=== PATIENT | male | born 1940 | race Caucasian/White ===

== ENCOUNTER 2023-01-18 11:29 | Inpatient (IN) | payer MEDICARE ==
[2023-01-18] MEDS ORDERED: SODIUM CHLORIDE 0.9% 1,000 ML IV STA (12:26)
[2023-01-18] MEDS ORDERED: SODIUM CHLORIDE 0.9% 500 ML 500 ML IV STA (12:26)
[2023-01-18] MEDS ORDERED: ACETAMINOPHEN TAB 500 MG TAB PO STA (12:26)
--- NOTE | 2023-01-18 12:34 | ED ---
General Adult HPI - General Chief complaint: Weakness Stated complaint: Weakness, Confusion Time Seen by Provider: 01/18/23 12:00 Source: patient, RN notes reviewed, old records reviewed Mode of arrival: ambulatory Limitations: no limitations - History of Present Illness Initial comments: This is an 82-year-old male presents emergency Department with his . gives all of the history. states over the last week or so he's been more confused and falling a couple times. states she's never been injured in any of the falls. states that today he didn't know where he was going even though she told him about [address] to [address] hospital. Once patient was in the room he couldn't remember where he was again. Patient has a catheter in place for urinary retention for the last 2 years acute change every 2 weeks. states she's noticed the color to be a little different. There is been no objective findings of a fever. Patient has not had any physical complaints but he also does not know or is not aware that he is altered primary medical care doctor wanted the patient be admitted to the hospital - Related Data Home Medications Medication Instructions Recorded Confirmed No Known Home Medications 01/18/23 01/18/23 Allergies Allergy/AdvReac Type Severity Reaction Status Date / Time No Known Allergies Allergy Verified 01/18/23 13:13 Review of Systems ROS Statement: Those systems with pertinent positive or pertinent negative responses have been documented in the HPI. ROS Other: All systems not noted in ROS Statement are negative. 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 Patient is nontoxic and well- hydrated and is in mild distress. ENT: Neck is soft and supple. No significant lymphadenopathy is noted. Oropharynx is clear. Moist mucous membranes. Neck has full range of motion without eliciting any pain. EYES: The sclera were anicteric and conjunctiva were pink and moist. Extraocular movements were intact and pupils were equal round and reactive to light. Eyelids were unremarkable. PULMONARY: Unlabored respirations. Good breath sounds bilaterally. No audible rales rhonchi or wheezing was noted. CARDIOVASCULAR: There is a regular rate and rhythm without any murmurs gallops or rubs. ABDOMEN: Soft and nontender with normal bowel sounds. SKIN: Skin is clear with no lesions or rashes and otherwise unremarkable. NEUROLOGIC: Patient is alert and oriented 2. Cranial nerves II through XII are grossly intact. Motor and sensory are also intact. Normal speech, volume and content. Symmetrical smile. MUSCULOSKELETAL: Normal extremities with adequate strength and full range of motion. LYMPHATICS: No significant lymphadenopathy is noted PSYCHIATRIC: Normal psychiatric evaluation. Limitations: no limitations Course Vital Signs 01/18/23 11:33 Temperature 98.6 F Pulse Rate 75 Respiratory 20 Rate Blood Pressure 186/88 O2 Sat by Pulse 100 Oximetry Medical Decision Making - Medical Decision Making EKG shows sinus rhythm at 64 bpm NE interval 143 QRS is 95 Q-T intervals 416 QTC is 426. Patient's EKG is of poor quality in leads 1 and 2 however there is no other leads denies any ST segment elevation Was pt. sent in by a medical professional or institution (, PA, SECURITY SHIFT SUPERVISOR, urgent care, hospital, or long term...) When possible be specific @ -Primary medical care doctor sent the patient to the ER Did you speak to anyone other than the patient for history (EMS, parent, family, police, friend...)? What history was obtained from this source @ -History significant completely by the Did you review nursing and triage notes (agree or disagree)? Why? @ -I reviewed and agree with nursing and triage notes Were old charts reviewed (outside hosp., previous admission, EMS record, old EKG, old radiological studies, urgent care reports/EKG's, long term records)? Report findings @ -I reviewed prior lab work and charts. Differential Diagnosis (chest pain, altered mental status, abdominal pain women, abdominal pain men, vaginal bleeding, weakness, fever, dyspnea, syncope, headache, dizziness, GI bleed, back pain, seizure, CVA, palpatations, mental health, musculoskeletal)? @ -Differential Altered Mental Status: Hypoglycemia, DKA, hypercapnia, ETOH, overdose, CO poisoning, trauma, myxedema coma, HTN encephalopathy, infection, encephalitis, psychosis, intercranial hemorrhage, hepatic encephalopathy, meningitis, CVA, this is not meant to be an all-inclusive list EKG interpreted by me (3pts min.). @ -As above X-rays interpreted by me (1pt min.). @ -Chest x-ray was interpreted by myself is in no acute normalities CT interpreted by me (1pt min.). @ -None done U/S interpreted by me (1pt. min.). @ -None done What testing was considered but not performed or refused? (CT, X-rays, U/S, labs)? Why? @ -None What meds were considered but not given or refused? Why? @ -None Did you discuss the management of the patient with other professionals (pro fessionals i.e. , PA, SECURITY SHIFT SUPERVISOR, lab, RT, psych nurse, social media campaign manager, reinforcing iron and rebar workers, teacher, benefits officer, case finisher)? Give summary @ -I spoke with [facility] they agreed to admit the patient admitted the patient wrote admitting orders Was smoking cessation discussed for >3mins.? @ -No Was critical care preformed (if so, how long)? @ -No Were there social determinants of health that impacted care today? How? (Homelessness, low income, unemployed, alcoholism, drug addiction, [employer], low edu. Level, literacy, decrease access to med. care, group home, rehab)? @ -No Was there de-escalation of care discussed even if they declined (Discuss DNR or withdrawal of care, Hospice)? DNR status @ -No What co-morbidities impacted this encounter? (DM, HTN, Smoking, COPD, CAD, Cancer, CVA, ARF, Chemo, Hep., AIDS, mental health diagnosis, sleep apnea, morbid obesity)? @ -Indwelling catheter Was patient admitted / discharged? Hospital course, mention meds given and route, prescriptions, significant lab abnormalities, going to OR and other pertinent info. @ -Patient continued to be altered throughout his stay. Patient was given 2 g Rocephin. did not think that the patient will be safe going home because he fell a couple of times and was completely confused at times. I spoke with [facility] he agreed to admit the patient admitted the patient wrote admitting orders I continued antibiotics on the floor. Undiagnosed new problem with uncertain prognosis? @ -No Drug Therapy requiring intensive monitoring for toxicity (Heparin, Nitro, Insulin, Cardizem)? @ -No Were any procedures done? @ -No Diagnosis/symptom? @ -Altered mental status Acute, or Chronic, or Acute on Chronic? @ -Acute Uncomplicated (without systemic symptoms) or Complicated (systemic symptoms)? @ -Complicated Side effects of treatment? @ -No Exacerbation, Progression, or Severe Exacerbation? @ -No Poses a threat to life or bodily function? How? (Chest pain, USA, IA, pneumonia, PE, COPD, DKA, ARF, appy, cholecystitis, CVA, Diverticulitis, Homicidal, Suicidal, threat to staff... and all critical care pts) @ -No Diagnosis/symptom? @ -Urinary tract infection Acute, or Chronic, or Acute on Chronic? @ -Acute Uncomplicated (without systemic symptoms) or Complicated (systemic symptoms)? @ -Complicated Side effects of treatment? @ -none Exacerbation, Progression, or Severe Exacerbation] @ -no Poses a threat to life or bodily function? @ -Yes this could lead to sepsis and and/or dysfunction - Lab Data Result diagrams: 01/18/23 13:01 01/18/23 13:01 Lab Results 01/18/23 01/18/23 01/18/23 Range/Units 13:01 13:01 13:01 WBC 15.4 H (3.8-10.6) k/uL RBC 4.60 (4.30-5.90) m/uL Hgb 14.7 (13.0-17.5) gm/dL Hct 44.4 (39.0-53.0) % MCV 96.5 (80.0-100.0) fL MCH 32.0 (25.0-35.0) pg MCHC 33.1 (31.0-37.0) g/dL RDW 13.0 (11.5-15.5) % Plt Count 273 (150-450) k/uL MPV 8.6 Neutrophils % 89 % Lymphocytes % 4 % Monocytes % 5 % Eosinophils % 1 % Basophils % 0 % Neutrophils # 13.7 H (1.3-7.7) k/uL Lymphocytes # 0.7 L (1.0-4.8) k/uL Monocytes # 0.7 (0-1.0) k/uL Eosinophils # 0.1 (0-0.7) k/uL Basophils # 0.0 (0-0.2) k/uL PT 10.3 (9.0-12.0) sec INR 1.0 (<1.2) APTT 23.5 (22.0-30.0) sec Sodium 136 L (137-145) mmol/L Potassium 4.0 (3.5-5.1) mmol/L Chloride 98 (98-107) mmol/L Carbon Dioxide 29 (22-30) mmol/L Anion Gap 9 mmol/L BUN 14 (9-20) mg/dL Creatinine 1.07 (0.66-1.25) mg/dL Est GFR (CKD-EPI)AfAm 76 (>60 ml/min/1.73 sqM) Est GFR (CKD-EPI)NonAf 66 (>60 ml/min/1.73 sqM) Glucose 94 (74-99) mg/dL Plasma Lactic Acid Angel (0.7-2.0) mmol/L Calcium 9.4 (8.4-10.2) mg/dL Magnesium 2.0 (1.6-2.3) mg/dL Total Bilirubin 0.6 (0.2-1.3) mg/dL AST 28 (17-59) U/L ALT 19 (4-49) U/L Alkaline Phosphatase 64 (38-126) U/L Troponin I (0.000-0.034) ng/mL Total Protein 7.5 (6.3-8.2) g/dL Albumin 4.4 (3.5-5.0) g/dL Urine Color Urine Appearance (Clear) Urine pH (5.0-8.0) Ur Specific Sidney (1.001-1.035) Urine Protein (Negative) Urine Glucose (UA) (Negative) Urine Ketones (Negative) Urine Blood (Negative) Urine Nitrite (Negative) Urine Bilirubin (Negative) Urine Urobilinogen (<2.0) mg/dL Ur Leukocyte Esterase (Negative) Urine RBC (0-5) /hpf Urine WBC (0-5) /hpf Urine Bacteria (None) /hpf 01/18/23 01/18/23 01/18/23 Range/Units 13:01 13:01 13:41 WBC (3.8-10.6) k/uL RBC (4.30-5.90) m/uL Hgb (13.0-17.5) gm/dL Hct (39.0-53.0) % MCV (80.0-100.0) fL MCH (25.0-35.0) pg MCHC (31.0-37.0) g/dL RDW (11.5-15.5) % Plt Count (150-450) k/uL MPV Neutrophils % % Lymphocytes % % Monocytes % % Eosinophils % % Basophils % % Neutrophils # (1.3-7.7) k/uL Lymphocytes # (1.0-4.8) k/uL Monocytes # (0-1.0) k/uL Eosinophils # (0-0.7) k/uL Basophils # (0-0.2) k/uL PT (9.0-12.0) sec INR (<1.2) APTT (22.0-30.0) sec Sodium (137-145) mmol/L Potassium (3.5-5.1) mmol/L Chloride (98-107) mmol/L Carbon Dioxide (22-30) mmol/L Anion Gap mmol/L BUN (9-20) mg/dL Creatinine (0.66-1.25) mg/dL Est GFR (CKD-EPI)AfAm (>60 ml/min/1.73 sqM) Est GFR (CKD-EPI)NonAf (>60 ml/min/1.73 sqM) Glucose (74-99) mg/dL Plasma Lactic Acid Angel 1.2 (0.7-2.0) mmol/L Calcium (8.4-10.2) mg/dL Magnesium (1.6-2.3) mg/dL Total Bilirubin (0.2-1.3) mg/dL AST (17-59) U/L ALT (4-49) U/L Alkaline Phosphatase (38-126) U/L Troponin I <0.012 (0.000-0.034) ng/mL Total Protein (6.3-8.2) g/dL Albumin (3.5-5.0) g/dL Urine Color Colorless Urine Appearance Clear (Clear) Urine pH 6.5 (5.0-8.0) Ur Specific Sidney 1.004 (1.001-1.035) Urine Protein Negative (Negative) Urine Glucose (UA) Negative (Negative) Urine Ketones Negative (Negative) Urine Blood Negative (Negative) Urine Nitrite Positive (Negative) Urine Bilirubin Negative (Negative) Urine Urobilinogen <2.0 (<2.0) mg/dL Ur Leukocyte Esterase Moderate H (Negative) Urine RBC 1 (0-5) /hpf Urine WBC 9 H (0-5) /hpf Urine Bacteria Occasional H (None) /hpf Disposition Clinical Impression: Altered mental status, Urinary tract infection Disposition: ADMITTED IP TO THIS HOSP Is patient prescribed a controlled substance at d/c from ED?: No Referrals: Kade Moyer MD [Primary Care Provider] - 1-2 days Time of Disposition: 14:15
[2023-01-18 13:13] LABS: Basophils % (A) 0 %; Eosinophils # (A) 0.1 k/uL (0-0.7); Eosinophils % (A) 1 %; HCT 44.4 % (39.0-53.0); HGB 14.7 gm/dL (13.0-17.5); Lymphocytes # (A) 0.7 k/uL (1.0-4.8); Lymphocytes % (A) 4 %; MCHC 33.1 g/dL (31.0-37.0); MCV 96.5 fL (80.0-100.0); Mean Platelet Volume 8.6; Monocytes # (A) 0.7 k/uL (0-1.0); Monocytes % (A) 5 %; Neutrophils # (A) 13.7 k/uL (1.3-7.7); Neutrophils % (A) 89 %; Platelet Count 273 k/uL (150-450); WBC 15.4 k/uL (3.8-10.6)
[2023-01-18 13:26] LABS: Albumin 4.4 g/dL (3.5-5.0); Calcium 9.4 mg/dL (8.4-10.2); Total Bilirubin 0.6 mg/dL (0.2-1.3); Total Protein 7.5 g/dL (6.3-8.2)
[2023-01-18 13:29] LABS: Partial Thromboplastin Time 23.5 sec (22.0-30.0); Prothrombin Time 10.3 sec (9.0-12.0)
[2023-01-18 14:07] LABS: Appearance,Urine Clear (Clear); Bacteria,Urine Occasional /hpf; Bilirubin,Urine Negative (Negative); Blood,Urine Negative (Negative); Color,Urine Colorless; Glucose,Urine (UA) Negative (Negative); Ketones,Urine Negative (Negative); Leukocyte Esterase,Urine Moderate (Negative); Nitrite,Urine Positive (Negative); PH, Urine 6.5 (5.0-8.0); Protein,Urine Negative (Negative); RBC,Urine 1 /hpf (0-5); Specific Gravity,Urine 1.004 (1.001-1.035); Urobilinogen,Urine <2.0 mg/dL (<2.0); WBC,Urine 9 /hpf (0-5)
[2023-01-18] MEDS ORDERED: cefTRIAXone IN SWFI 1,000 MG/10 ML SYRINGE IVP STA (14:14)
[2023-01-18] MEDS ORDERED: SODIUM CHLORIDE 0.9% 1,000 ML IV ONE (14:25)
--- NOTE | 2023-01-18 14:45 | XR ---
EXAMINATION TYPE: XR chest 2V DATE OF EXAM: 01/18/2023 COMPARISON: NONE HISTORY: Weakness and confusion. TECHNIQUE: Frontal and lateral views of the chest are obtained. FINDINGS: Cardiomegaly is present. Some increased interstitial markings. No suspicious focal airspac e opacity, pleural effusion, or pneumothorax. Overlying EKG leads. The osseous structures are demine ralized. IMPRESSION: Cardiomegaly with perhaps mild interstitial edema or mild chronic parenchymal fibrotic c hange. Correlate clinically. No suspicious acute focal infiltrate.
[2023-01-18] MEDS ORDERED: ACETAMINOPHEN TAB 325 MG TAB PO PRN (15:09)
--- NOTE | 2023-01-18 15:15 | P.HPIM ---
History of Present Illness H&P Date: 01/18/23 Patient is a 82-year-old male with history of chronic indwelling Bal catheter presenting with altered mentation. Patient is a poor historian. is at bedside. She claims that he has had previous urinary tract infections where he becomes encephalopathic. This time, he started to become encephalopathic yesterday. called PCP office, and was given script for bactrim. He took 2 doses of Bactrim, but his mental status has continued to worsen. She called PCP in this morning, was advised to come to the ED. She denies any recorded fevers. Patient himself denies any pain, shortness of breath, nausea, vomiting, diarrhea, constipation. He has chronic indwelling Bal catheter for the last 2 years. He has history of poliomyelitis. He normally ambulates using a walker. For the last day or so he has been feeling weak, and had 2 mechanical falls. denies noticing any head trauma. In the ED, patient was afebrile, blood pressure 186/88, saturating at 100%, at room air, pulse 75, respiratory rate 20. CBC showed WBC 15.4, sodium 136, creatinine 1.07, troponin less than 0.012, UA positive for nitrites, moderate leukocyte esterase he was given ceftriaxone in the ED, and 1.5 L of normal saline. EKG showed sinus rhythm with nonspecific ST T wave changes. Chest x- ray showed no significant opacity. Patient admitted for acute metabolic encephalopathy likely in the setting of urinary tract infection and sepsis. Pertinent positives and negatives as discussed in HPI, a complete review of systems was performed and all other systems are negative. Patient seen and examined at bedside. Vital signs reviewed General: nontoxic, no distress, appears at stated age Derm: warm, dry Head: atraumatic, normocephalic, symmetric Eyes: EOMI, no lid lag, anicteric sclera, pupils equal round reactive to light ENT: Nose and ears atraumatic Neck: No thyromegaly, supple Mouth: no lip lesion, mucus membranes moist Cardiovascular: S1S2 reg, no murmur, no edema Lungs: clear to auscultation bilateral, no rhonchi, no rales, no wheeze, no accessory muscle use Abdominal: soft, nontender to palpation, no guarding, no appreciable organomegaly Ext: no gross muscle atrophy, muscle strength muscle strength 5 out of 5 in all 4 extremities, no contractures Neuro: CN II-XII grossly intact Psych: Alert, oriented 1, appropriate affect Assessment/Plan: Active: Sepsis secondary to urinary tract infection Chronic indwelling Bal catheter, secondary to history of poliomyelitis Generalized weakness Acute metabolic encephalopathy Hypertensive urgency Mild hyponatremia, hypovolemic -Continue Rocephin 2 g every 24 hours -Blood cultures, urine cultures pending -Bal catheter exchanged in the ED -Continue normal saline at 75 mL an hour -Acute metabolic encephalopathy likely secondary to sepsis and urinary tract infection -CT head ordered -TSH, B12 ordered -PT/OT -We will hold off adding any antihypertensives at the moment given sepsis -Hyponatremia likely hypovolemic, should improve with IV fluids given earlier, repeat BMP tomorrow The patient is admitted with an anticipated less than 2 midnight stay as observation status for evaluation of sepsis. Surrogate decision-maker: CODE STATUS: DO NOT RESUSCITATE/DO NOT INTUBATE DVT prophylaxis: Subcu heparin Anticipated discharge date: Pending clinical course Anticipated discharge place: Pending clinical course A total of 55 minutes was spent on the care of this complex patient more than 50% of the time was spent in counseling and care coordination. 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 History of Any Multi-Drug Resistant Organisms: None Reported Past Surgical History: No Surgical Hx Reported Past Psychological History: No Psychological Hx Reported Smoking Status: Never smoker Past Alcohol Use History: None Reported Past Drug Use History: None Reported Medications and Allergies Home Medications Medication Instructions Recorded Confirmed Type No Known Home Medications 01/18/23 01/18/23 History Allergies Allergy/AdvReac Type Severity Reaction Status Date / Time No Known Allergies Allergy Verified 01/18/23 13:13 Physical Exam Vitals: Vital Signs Temp Pulse Resp BP Pulse Ox 01/18/23 14:00 65 11 L 183/96 01/18/23 13:21 18 01/18/23 11:33 98.6 F 75 20 186/88 100 Intake and Output 01/18/23 01/18/23 01/18/23 06:59 14:59 22:59 Other: Weight 68.946 kg Results CBC & Chem 7: 01/18/23 13:01 01/18/23 13:01 Labs: Abnormal Lab Results - Last 24 Hours (Table) 01/18/23 01/18/23 01/18/23 Range/Units 13:01 13:01 13:41 WBC 15.4 H (3.8-10.6) k/uL Neutrophils # 13.7 H (1.3-7.7) k/uL Lymphocytes # 0.7 L (1.0-4.8) k/uL Sodium 136 L (137-145) mmol/L Ur Leukocyte Esterase Moderate H (Negative) Urine WBC 9 H (0-5) /hpf Urine Bacteria Occasional H (None) /hpf
[2023-01-18] MEDS: HEPARIN SODIUM,PORCINE/PF 5,000 UNIT/0.5 ML SYRINGE SQ SCH (16:13)
--- NOTE | 2023-01-18 17:25 | CT ---
EXAMINATION TYPE: CT brain wo con DATE OF EXAM: 01/18/2023 COMPARISON: None HISTORY: Altered mental status. CT DLP: 1243.4 mGycm Automated exposure control for dose reduction was used. Images obtained of the brain without contrast. There is cerebral atrophy. There is no mass effect or midline shift. No sign of intracranial hemorrha ge. There is hypodensity in the knapp and white matter left occipital lobe that measures 4 cm. The dieter varium is intact. Sella turcica appears intact there is some mucosal thickening left maxillary sinus. There is normal aeration of the mastoid sinuses. 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 No hemorrhage. Cere bral atrophy.
[2023-01-19] MEDS: HEPARIN SODIUM,PORCINE/PF 5,000 UNIT/0.5 ML SYRINGE SQ SCH ×3 (00:57→16:54)
[2023-01-19 09:48] LABS: Basophils # (A) 0.07 X 10*3/uL (0.00-0.10); Basophils % (A) 0.7 %; Eosinophils # (A) 0.15 X 10*3/uL (0.04-0.35); Eosinophils % (A) 1.5 %; HCT 39.2 % (39.6-50.0); Immature Grans, Automated 0.4 %; Lymphocytes # (A) 1.27 X 10*3/uL (0.90-5.00); Lymphocytes % (A) 12.4 %; MCH 31.9 pg (27.0-32.0); MCHC 33.2 g/dL (32.0-37.0); MCV 96.3 fL (80.0-97.0); Mean Platelet Volume 11.4 fL (9.5-12.2); Monocytes # (A) 1.05 X 10*3/uL (0.20-1.00); Monocytes % (A) 10.2 %; NRBC Per 100 WBC 0 /100 WBCS (0.0-0.0); Neutrophils # (A) 7.69 X 10*3/uL (1.80-7.70); Neutrophils % (A) 74.8 %; Platelet Count 242 X 10*3/uL (140-440); RBC 4.07 X 10*6/uL (4.40-5.60); RDW 13.6 % (11.5-14.5); WBC 10.27 X 10*3/uL (4.50-10.00)
[2023-01-19 10:27] LABS: Anion Gap 7.7 mmol/L (10.00-18.00); BUN/Creat Ratio 9.14 Ratio (12.00-20.00); Blood Urea Nitrogen 9.2 mg/dL (9.0-27.0); Calcium 8.6 mg/dL (8.7-10.3); Carbon Dioxide 23.9 mmol/L (20.0-27.5); Non-African American GFR(CKD) 69.9 (60.0-200.0); Potassium 3.9 mmol/L (3.5-5.5)
--- NOTE | 2023-01-19 15:49 | P.PN ---
Subjective Progress Note Date: 01/19/23 Patient is an 82-year-old male with 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 Patient had been started on Bactrim for possible urinary tract infection by his primary care practitioner the day prior to admission. In the ER he underwent an extensive evaluation. He was afebrile on admission. La boratory analysis was remarkable for white blood cell count of 15.4, sodium 136. Urinalysis showed 9 white blood cells. Patient was admitted for acute metabolic encephalopathy likely in the setting of urinary tract infection and sepsis. He was started on Rocephin and IV fluids. His Bal catheter was exchanged in the emergency department. Influenza A/B/RC/COVID-19 testing was negative. 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 Patient seen and examined at bedside. He is pleasantly confused. Speech is coherent but does not answer questions directly. He believes it is 1948, and he is unsure where he is at. updated at bedside. Plan is to continue with IV antibiotics and if no improvement in mentation in the next 24 hours we'll proceed with MRI brain as computed tomography scan was negative Vital signs reviewed General: nontoxic, no distress, appears at stated age Cardiovascular: S1S2 reg, no murmur, positive posterior tibial pulse bilateral, Lungs: CTA bilateral, no rhonchi, no rales , no accessory muscle use Abdominal: soft, nontender to palpation, no guarding, no appreciable organomegaly Ext: no gross muscle atrophy, no edema, no contractures Neuro: CN II-XI grossly intact, no focal neuro deficits Psych: Alert, oriented, appropriate affect Assessment: Sepsis secondary to urinary tract infection, POA Chronic indwelling Bal catheter, secondary to history of poliomyelitis Generalized weakness Acute metabolic encephalopathy Hypertensive urgency Mild hyponatremia, hypovolemic, resolved Imaging: - non new for review Data Review: A.m. vital signs reviewed temperature 97.2, pulse 63, respirations 18, blood pressure 146/81, O2 sat 98% on room air Laboratory analysis was remarkable for white blood cell count 10.27 down from 15.4 Plan: - check urine culture, not obtained yesterday, hope to add to urine in lab. -Continue with Rocephin 2 g every 24 hours -Repeat CBC in a.m. -Encourage oral fluid intake Anticipate home in a.m. if altered mentation is improved. DVT prophylaxis: Heparin Discussed with: This dictation was prepared using [employer]ze voice recognition software. Though every attempt is made to correct errors during during dictation some may still exist. Objective - Vital Signs Vital signs: Vital Signs Temp 97.2 F L 01/19/23 07:36 Pulse 63 01/19/23 07:36 Resp 18 01/19/23 07:36 BP 146/81 01/19/23 07:36 Pulse Ox 98 01/19/23 08:00 FiO2 Intake & Output 01/18/23 01/19/23 01/19/23 18:59 06:59 18:59 Output Total 550 Balance -550 Weight 68.946 kg 68.946 kg Output: Urine 550 Other: Voiding Method Indwelling Catheter - Labs CBC & Chem 7: 01/19/23 06:13 01/19/23 06:13 Labs: Abnormal Lab Results - Last 24 Hours (Table) 01/18/23 01/18/23 01/18/23 Range/Units 13:01 13:01 13:41 WBC 15.4 H (3.8-10.6) k/uL Neutrophils # 13.7 H (1.3-7.7) k/uL Lymphocytes # 0.7 L (1.0-4.8) k/uL Sodium 136 L (137-145) mmol/L Ur Leukocyte Esterase Moderate H (Negative) Urine WBC 9 H (0-5) /hpf Urine Bacteria Occasional H (None) /hpf
[2023-01-20] MEDS: HEPARIN SODIUM,PORCINE/PF 5,000 UNIT/0.5 ML SYRINGE SQ SCH ×3 (01:47→15:21)
--- NOTE | 2023-01-20 11:21 | P.CNNES ---
History of Present Illness Consult date: 01/20/23 Requesting physician: Dorys Cook Reason for Consult: confusion History of Present Illness: This is an 82-year-old gentleman with postpolio syndrome, chronic indwelling Bal catheter presented emergency department for altered mental status. Some of the history is obtained from the patient's primary attending. It seems the patient has history of postpolio and has old speech difficulty in the past but is seems the notified the primary team that the patient was confused. Patient denies of any headache does not feel he has any focal weakness or numbness. Patient denies any history of stroke. Some other workup during his hospital visit consisted of: Patient is afebrile so far. White blood cell on initial presentation his 50.4 thousand and the repeat his 10.27. Vitamin B12 is 547. TSH is 1.92 Initial sodium was 136 repeated was 38. Plasma-Lyte S Sam is 1.2 otherwise rest of the cancer panel is unremarkable. CT of the head is reviewed as hypodensity in left hospital lobe consistent with old or subacute infarct. No hemorrhage. Cerebral atrophy. I personally reviewed the CT of the head and I agree patient does have seems at least subacute changes over left occipital temporal region. I don't have any prior images to compare with. Review of Systems Review of system: The 12 point system was reviewed and apparent positive and negative per HPI. 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 History of Any Multi-Drug Resistant Organisms: None Reported Past Surgical History: No Surgical Hx Reported Past Psychological History: No Psychological Hx Reported Smoking Status: Never smoker Past Alcohol Use History: None Reported Past Drug Use History: None Reported Medications and Allergies Home Medications Medication Instructions Recorded Confirmed Type No Known Home Medications 01/18/23 01/18/23 History Allergies Allergy/AdvReac Type Severity Reaction Status Date / Time No Known Allergies Allergy Verified 01/18/23 13:13 Physical Examination - Vital Signs Vital Signs: Vital Signs Temp Pulse Resp BP Pulse Ox 01/20/23 09:30 97 01/20/23 06:58 97.8 F 75 17 154/84 97 01/20/23 05:10 56 L 16 161/85 01/20/23 01:30 97.4 F L 72 16 172/82 97 01/19/23 20:00 60 15 01/19/23 19:37 97.8 F 60 15 142/71 98 01/19/23 12:17 98.3 F 55 L 18 158/73 97 Intake and Output 01/19/23 01/20/23 01/20/23 22:59 06:59 14:59 Intake Total 318 Output Total 450 600 Balance 318 -450 -600 Intake: Oral 318 Output: Urine 450 600 Other: Voiding Method Indwelling Catheter Indwelling Catheter GENERAL: The patient is sitting in a recliner chair and is not in acute distress. CHEST: The heart rate is regular rate rhythm. LUNG: Clear to auscultation bilaterally no wheezing noted throughout. Not labored breathing. ABDOMEN/GI: Bowel sounds present in all 4 quadrants. No tenderness to palpation throughout. NEUROLOGICAL: Somewhat limited because of cooperation. Higher mental function: The patient is awake, alert, oriented to self and stated he was in the hospital but could not tell me name. He stated the year is 1984 and was stating random month. For naming objects he stated clock upon showing him watch and for pen he was attempting to say but could not get it out but gesturing to writing something. It seems he has paraphrasic errors and appears having expressive aphasia. Patient is following simple commands. No neglect. Cranial nerves: The pupils are round, equal and reactive to light. Visual dyer are full to confrontation throughout. Extraocular movement is intact no nystagmus is noted. The facial strength is has left nasolabial flattening and stated looks normal. Hearing is severely decreased bilaterally to hand rubs. Tongue is midline and moved [id number] without any difficulty. No dysarthria is noted. Shoulder shrug is normal bilaterally. Motor: The strength is 5 over 5 throughout uppers while lowers was limited because of cooperation but had at least 4+ to 5-. Has some atrophy in lowers. Normal tone throughout. Cerebellum: Normal finger to nose bilaterally. Sensation: Sensation is normal to touch throughout. Reflexes (right/left): Somewhat limited because of his cooperation but has biceps and triceps 1-2+. Otherwise 1+ throughout.. Plantars are mute bilaterally. Results - Laboratory Findings CBC and BMP: 01/19/23 06:13 01/19/23 06:13 Abnormal Lab Findings: Abnormal Labs 01/18/23 01/18/23 01/18/23 13:01 13:01 13:41 WBC 15.4 H RBC Hct Neutrophils # 13.7 H Lymphocytes # 0.7 L Monocytes # Sodium 136 L Anion Gap BUN/Creatinine Ratio Calcium Ur Leukocyte Esterase Moderate H Urine WBC 9 H Urine Bacteria Occasional H 01/19/23 01/19/23 06:13 06:13 WBC 10.27 H RBC 4.07 L Hct 39.2 L Neutrophils # Lymphocytes # Monocytes # 1.05 H Sodium Anion Gap 7.70 L BUN/Creatinine Ratio 9.14 L Calcium 8.6 L Ur Leukocyte Esterase Urine WBC Urine Bacteria Assessment and Plan Assessment: This is an 82-year-old gentleman with history of polio who presented emergency department because of confusion. On examination appears to patient has expressive aphasia but the feels he has underlying language the difficulty at baseline * Expressive aphasia and on the CT of the head it appears the patient has at least subacute changes over the left occipital temporal region suggestive of subacute ischemic stroke. No IV TPA since unknown last normal and the risk outweighed the benefit. * History of polio * Chronic indwelling Bal catheter Plan: I agree with the primary in pursuing MRI Brain. I also ordered carotid duplex, 2-D echo, lipid panel. I started the patient on aspirin 325 once for now and until we get the MRI the brain and if it is suggestive of subacute ischemic stroke then also the patient on dual antiplatelet aspirin and Plavix. I started the patient on Lipitor 40 mg daily at bedtime for secondary stroke prophylaxis I ordered a routine EEG because of the confusion to rule out any underlying seizure I ordered ammonia level Neurochecks On cardiac monitoring PT,OT are consulted in addition I also consulted COMMUNITY NURSE We'll defer the rest of the medical management to primary team For DVT prophylaxis the patient is on subcu heparin The plan was discussed with the patient and the primary attending Thank you for the consultation Time with Patient: Greater than 30
--- NOTE | 2023-01-20 12:56 | US ---
EXAMINATION TYPE: US carotid duplex BILAT DATE OF EXAM: 01/20/2023 COMPARISON: NONE CLINICAL HISTORY: stroke. Stroke per order. TECHNIQUE: Carotid duplex ultrasound examination. Indirect Doppler criteria was utilized. FINDINGS: EXAM MEASUREMENTS: RIGHT: Peak Systolic Velocity (PSV) cm/sec ----- Right CCA: 68.6 ----- Right ICA: 96.3 ----- Right ECA: 90.8 ICA/CCA ratio: 1.4 RIGHT: End Diastole cm/sec ----- Right CCA: 15.4 ----- Right ICA: 34.7 ----- Right ECA: 6.2 LEFT: Peak Systolic Velocity (PSV) cm/sec ----- Left CCA: 42.0 ----- Left ICA: 213.1 ----- Left ECA: 90.5 ICA/CCA ratio: 5.1 LEFT: End Diastole cm/sec ----- Left CCA: 0.0 ----- Left ICA: 61.1 ----- Left ECA: 5.0 VERTEBRALS (direction of flow): Right Vertebral: Antegrade Left Vertebral: Antegrade Rhythm: BULL DRIVER NOTES: Plaque seen within bilateral bulbs. Very large amount of plaque seen left bulb/proximal left ICA. Stenosis seen with thin area of color f low seen. Elevated velocity within left prox ICA. ICA/CCA ratio was 5.1 on the left. Lower veloci ty noted within left distal ICA. Difficult to show any color flow at left bulb area of plaque. Grayscale images show more severe plaque at the left carotid bulb. Increased peak systolic velocity a nd end-diastolic velocity along with abnormal ratio on the left. 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 Consider CTA of the neck or direct catheter angiogram to further evaluate. Criteria for Assigning % of Stenosis / Diameter reduction (Estimation based on the indirect measurements of the internal carotid artery velocities (ICA PSV). 1. Normal (no stenosis)=ICA PSV < 125 cm/s: ratio < 2.0: ICA EDV<40 cm/s. 2. Less than 50% stenosis=ICA PSV < 125 cm/s: ratio < 2.0: ICA EDV<40 cm/s. 3. 50 to 69% stenosis=ICA PSV of 125 to 230 cm/s: ration 2.0 ? 4.0: ICA EDV 40-100 cm/s. 4. Greater than 70% stenosis to near occlusion= ICA PSV > 230 cm/s: ratio > 4.0: ICA EDV > 100 cm/s. 5. Near occlusion= ICA PSV velocities may be low or undetectable: variable ratio and ICA EDV. 6. Total occlusion=unable to detect flow.
[2023-01-20] MEDS: ASPIRIN 325 MG TAB PO SCH (15:21)
--- NOTE | 2023-01-20 16:13 | P.PN ---
Subjective Progress Note Date: 01/20/23 (delayed charting seen at 0930) Patient is an 82-year-old male with 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 Patient had been started on Bactrim for possible urinary tract infection by his primary care practitioner the day prior to admission. In the ER he underwent an extensive evaluation. He was afebrile on admission. Laboratory analysis was remarkable for white blood cell count of 15.4, sodium 136. Urinalysis showed 9 white blood cells. Patient was admitted for acute metabolic encephalopathy likely in the setting of urinary tract infection and sepsis. He was started on Rocephin and IV fluids. His Bal catheter was exchanged in the emergency department. Influenza A/B/RC/COVID-19 testing was negative. He has some improvement in his mentation, but it was still not back to baseline despite IV fluids and abx of over 24 hours. 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 Patient seen and examined at bedside. He is stil confused. He denies pain, no nausea, no vomiting, no diarrhea Vital signs reviewed General: nontoxic, no distress, appears at stated age Cardiovascular: S1S2 reg, no murmur, positive posterior tibial pulse bilateral, Lungs: CTA bilateral, no rhonchi, no rales , no accessory muscle use Abdominal: soft, nontender to palpation, no guarding, no appreciable organomegaly Ext: no gross muscle atrophy, no edema, no contractures Neuro: CN II-XI grossly intact, b/l LE weakness, antalgic gait. Psych: Alert, oriented to self, year 1940, place- a place were people go to get better , appropriate affect Assessment: Sepsis secondary to urinary tract infection, POA Chronic indwelling Bal catheter, secondary to history of poliomyelitis Generalized weakness Acute metabolic encephalopathy Hypertensive urgency Mild hyponatremia, hypovolemic, resolved Imaging: no new imaging for review Data Review: VS from this morning: temp 97.8, pulse 75, RR 17, BP 154/84, RA 97% No new labs available Plan: - check MR brain and consult neurology with continued confusion, Case discussed with Dr. Pickett at length - Await urine culture, Rocephin 2 grams daily D # 3 - Repeat CBC in AM - add norvasc 5 mg daily - follow BP DVT prophylaxis: Heparin This dictation was prepared using [employer]ome [id number] voice recognition software. Though every attempt is made to correct errors during during dictation some may still exist. Objective - Vital Signs Vital signs: Vital Signs Temp 98.3 F 01/20/23 12:09 Pulse 63 01/20/23 12:09 Resp 18 01/20/23 12:09 BP 160/91 01/20/23 12:09 Pulse Ox 98 01/20/23 12:09 FiO2 Intake & Output 01/19/23 01/20/23 01/20/23 18:59 06:59 18:59 Intake Total 200 118 Output Total 450 600 Balance 200 -332 -600 Intake: Oral 200 118 Output: Urine 450 600 Other: Voiding Method Indwelling Catheter Indwelling Catheter Indwelling Catheter - Labs CBC & Chem 7: 01/19/23 06:13 01/19/23 06:13 Labs: Microbiology - Last 24 Hours (Table) 01/18/23 13:41 Urine Culture - Preliminary Urine,Catheterized
[2023-01-20] MEDS ORDERED: amLODIPine 5 MG TAB PO SCH (16:15)
--- NOTE | 2023-01-20 17:38 | CA ---
Transthoracic Echo Report Name: Norman Taveras Age: 82 Gender: M : 1940 Exam Date: 01/20/2023 13:32 Exam Location: [facility] Ht (in): 69 Wt (lb): 152 Ordering Physician: Wes Pickett MD Attending/Referring Phys: Field Coil Winder Cecilio Santos RDCS Procedure CPT: Indications: stroke Cardiac Hx: COPD; UTI; Technical Quality: Fair Contrast 1: Total Dose (mL): Contrast 2: Total Dose (mL): MEASUREMENTS (Male / Female) Normal Values 2D ECHO LV Diastolic Diameter PLAX 4.5 cm 4.2 - 5.9 / 3.9 - 5.3 cm LV Systolic Diameter PLAX 3.2 cm LV Fractional Shortening PLAX 28.2 % IVS Diastolic Thickness 1.2 cm 0.6 - 1.0 / 0.6 - 0.9 cm IVS Systolic Thickness 1.6 cm LVPW Diastolic Thickness 1.2 cm 0.6 - 1.0 / 0.6 - 0.9 cm LVPW Systolic Thickness 1.9 cm LV Relative Wall Thickness 0.5 RV Internal Dim ED PLAX 2.7 cm LVOT Diameter 2.3 cm LA Systolic Diameter LX 3.3 cm 3.0 - 4.0 / 2.7 - 3.8 cm LV Diastolic Volume MOD BP 94.8 cm??? 67 - 155 / 56 - 104 cm??? LV Systolic Volume MOD BP 45.6 cm??? 22 - 58 / 19 - 49 cm??? LV Ejection Fraction MOD BP 51.9 % >= 55 % LV Stroke Volume MOD BP 49.2 cm??? LV Diastolic Volume MOD 4C 91.7 cm??? LV Systolic Volume MOD 4C 35.2 cm??? LV Ejection Fraction MOD 4C 61.6 % LV Stroke Volume MOD 4C 56.6 cm??? LV Diastolic Length 4C 7.9 cm LV Systolic Length 4C 6.4 cm LV Diastolic Volume MOD 2C 95.8 cm??? LV Systolic Volume MOD 2C 55.8 cm??? LV Ejection Fraction MOD 2C 41.8 % LV Stroke Volume MOD 2C 40.0 cm??? LV Diastolic Length 2C 7.7 cm LV Systolic Length 2C 6.9 cm Ascending Aorta Diameter 3.2 cm M-MODE Aortic Root Diameter MM 3.5 cm LA Systolic Diameter MM 3.4 cm LA Ao Ratio MM 1.0 MV E Point Septal Separation 0.6 cm AV Cusp Separation MM 1.6 cm DOPPLER AV Peak Velocity 124.9 cm/s AV Peak Gradient 6.2 mmHg MV Peak Velocity 106.4 cm/s MV Peak Gradient 4.5 mmHg MV Mean Velocity 50.8 cm/s MV Mean Gradient 1.2 mmHg MV Velocity Time Integral 28.1 cm MV Deceleration [place] 181.1 cm/s??? MR Peak Velocity 523.2 cm/s MR Peak Gradient 109.5 mmHg Mitral E Point Velocity 57.2 cm/s Mitral A Point Velocity 107.8 cm/s Mitral E to A Ratio 0.5 MV Deceleration Time 315.6 ms MV E' Velocity 4.2 cm/s Mitral E to MV E' Ratio 13.5 Pulmonary Vein Systolic Velocity 40.2 cm/s Pulmonary Vein Diastolic Velocit 35.3 cm/s Pulmonary Vein S/D Ratio 1.1 Pulmonary Vein A Velocity 25.8 cm/s Pulmonary Vein A to Mitral A Rat 0.2 TR Peak Velocity 250.1 cm/s TR Peak Gradient 25.0 mmHg Right Ventricular Systolic Press 33.0 mmHg PV Peak Velocity 82.7 cm/s PV Peak Gradient 2.7 mmHg FINDINGS Left Ventricle Left ventricular ejection fraction is estimated at 55 %. Mild concentric left ventricular hypertrophy. Grade 1 diastolic dysfunction. Normal basal systolic function. Right Ventricle Normal right ventricular size and function. RVSP- 33 mm Hg. Right Atrium Normal right atrial size. Left Atrium Normal left atrial size. 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 Mitral Valve Mild thickening/calcification of the anterior mitral valve leaflet. Mild thickening/calcification of the posterior mitral valve leaflet. Mild mitral annular calcification. Minimal mitral stenosis. Mild to moderate mitral regurgitation. Aortic Valve Trileaflet aortic valve. Diffuse thickening (sclerosis) of the aortic valve cusps without reduced excursion. Tricuspid Valve [id number] tricuspid regurgitation. Pulmonic Valve Pulmonic valve not well visualized. Pericardium Normal pericardium. No pericardial effusion. Aorta Normal size aortic root and proximal ascending aorta. CONCLUSIONS Left ventricular ejection fraction 55% Mild increased left ventricular wall thickness RVSP 33 Mild mitral calcification Mild to moderate mitral regurgitation Mild to moderate tricuspid regurgitation No pericardial effusion Previewed by: Dr. Jamie Au DO (Electronically Signed) Final Date: 20 January 2023 17:37
--- NOTE | 2023-01-20 17:46 | MR ---
EXAMINATION TYPE: MR brain wo con DATE OF EXAM: 01/20/2023 COMPARISON: CT brain 2 days ago. HISTORY: CVA TECHNIQUE: Multiplanar, multisequence imaging of the brain and brainstem is performed without IV cont rast. FINDINGS: Diffusion weighted images demonstrate increased signal on diffusion-weighted imaging with diminished signal on ADC mapping involving the inferior left parietal-occipital lobe showing T2 hyperintensity a nd sulcal effacement consistent with evolving acute infarct. The area of involvement measures roughly 7.0 x 4.5 cm axial image 112 series 303. There is extension into the posterior superior left tempora l lobe. There is background moderate diffuse ventricular and sulcal prominence. There are scattered focal les ions of T2 hyperintensity throughout the white matter bilaterally. Approximately 50 scattered lesions are seen. Lesions are nonspecific in appearance and distribution. Midline structures demonstrate normal morphology. The craniocervical junction appears within normal limits. Lack of normal flow void involving large portion of the left internal carotid artery is confi rmed. Some retrograde filling from [place] of T[place] is likely present in the most distal aspect. Some loss of signal void in portions of the basilar artery could reflect slow flow or partial thrombosis/ significant narrowing. Mild mucosal thickening involving ethmoid sinuses bilaterally. Globes are inta ct bilaterally. IMPRESSION: 1. There is evolving moderate to large sized acute infarct inferior left parietal occipital lobe exte nding into the posterior superior left temporal lobe as detailed above. 2. There is background moderate diffuse cerebral atrophy and chronic small vessel ischemic change. 3. 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 Possible signif icant stenosis along course of the basilar artery. Consider direct catheter angiogram and/or CTA/MRA follow-up to further evaluate. A [place] level critical message alert has been initiated for Dorys Cook DO via the [employer] Critical Results System on 01/20/2023 5:43 PM. This message alert has been sent to Dorys edouard DO via the preferences provided by the clinician for the receipt of Radiology Critical Findings. Message ID [id number].
--- NOTE | 2023-01-20 19:32 | CT ---
EXAMINATION TYPE: CT angio head neck DATE OF EXAM: 01/20/2023 COMPARISON: None HISTORY: ACUTE STROKE POSS OCCLUSION ICA. BRAIN WO 3.. CT DLP: 329.20 mGycm Automated exposure control for dose reduction was used. CONTRAST: Performed with IV Contrast, patient injected with 65 mL of Isovue 370. Images obtained from the aortic arch to the vertex of the brain with IV contrast. There are Three-D p ostprocessed images. There is normal branching pattern of the great vessels on the aortic arch. There is arterial flow in the subclavian arteries bilaterally. There is arterial flow in the common internal and external carot id arteries bilaterally. There is subtotal occlusion of the proximal left internal carotid artery due to extensive plaque formation. There is mild plaque formation in less than 20% stenosis origin of th e right internal carotid artery. There is arterial flow in both vertebral arteries. No evidence of carotid or vertebral artery aneurys m or dissection. There is arterial flow in the vertebral basilar artery system. There is arterial flow in the anterior and middle cerebral arteries bilaterally. There is focal stenosis of the left middle cerebral artery at the anterior sylvian fissure. Stenosis estimated more than 70%. There is poor visualization of the posterior cerebral arteries bilaterally a nd likely related to significant bilateral posterior cerebral artery hemodynamic stenosis. There is e vidence for multifocal stenosis of the posterior cerebral arteries. No evidence of significant stenos is in the anterior cerebral arteries or the right middle cerebral artery. There is no evidence of intracranial aneurysm or neovascularity. No mass effect. There is normal enha ncement of the venous sinuses. 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 There is hemodynamic stenosis in the left middle cerebral artery at the anterior sylvian fissure. There is evidence for multifocal hemodynamic stenosis in the posterior cerebral arteries. This appear s more severe on the left side. This corresponds to the area of old or subacute infarct left occipita l lobe evident on the CT scan of 01/18/2023.
[2023-01-20 20:30] LABS: Glucose,Whole Blood 92 mg/dL (70-110)
--- NOTE | 2023-01-20 21:02 | CT ---
EXAMINATION TYPE: CT brain wo con DATE OF EXAM: 01/20/2023 COMPARISON: 01/18/2023 HISTORY: INCREASE AMS, CODE STROKE. PT HAD CTA HEAD NECK DONE 3HRS PRIOR SO CONTRAST MAY BE THERE. CT DLP: 1221.6 mGycm Automated exposure control for dose reduction was used. Images obtained of the brain without contrast. There is cerebral cortical atrophy. There is no mass effect or midline shift. No sign of intracranial hemorrhage. There is hypodensity left occipital lobe. There is enlargement of the ventricles. Sella turcica is normal. Calvarium is intact. There is cerebellar atrophy. 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 Cerebral atrophy and hydroceph alus. No hemorrhage.
[2023-01-20] MEDS: SODIUM CHLORIDE 0.9% 1,000 ML IV SCH (21:34)
[2023-01-20] MEDS: ATORVASTATIN 40 MG TAB PO SCH (21:34)
[2023-01-20 22:05] LABS: Basophils % (A) 0 %; Eosinophils # (A) 0.2 k/uL (0-0.7); Eosinophils % (A) 1 %; HCT 46.1 % (39.0-53.0); HGB 15.5 gm/dL (13.0-17.5); Lymphocytes # (A) 1.6 k/uL (1.0-4.8); Lymphocytes % (A) 15 %; MCH 32.1 pg (25.0-35.0); MCHC 33.6 g/dL (31.0-37.0); MCV 95.5 fL (80.0-100.0); Monocytes # (A) 0.8 k/uL (0-1.0); Monocytes % (A) 7 %; Neutrophils # (A) 7.8 k/uL (1.3-7.7); Neutrophils % (A) 74 %; Platelet Count 255 k/uL (150-450); RBC 4.83 m/uL (4.30-5.90); RDW 12.8 % (11.5-15.5); WBC 10.7 k/uL (3.8-10.6)
[2023-01-20 22:14] LABS: Partial Thromboplastin Time 25.9 sec (22.0-30.0); Prothrombin Time 10.9 sec (9.0-12.0)
[2023-01-20 22:25] LABS: Potassium 4.4 mmol/L (3.5-5.1)
[2023-01-20 22:26] LABS: ALT 22 U/L (4-49); AST 30 U/L (17-59); African American GFR (CKD) >90 (>60 ml/min/1.73 sqM); Albumin 4.3 g/dL (3.5-5.0); Alkaline Phosphatase 71 U/L (38-126); Anion Gap 9 mmol/L; Blood Urea Nitrogen 16 mg/dL (9-20); Calcium 9.4 mg/dL (8.4-10.2); Carbon Dioxide 25 mmol/L (22-30); Chloride 101 mmol/L (98-107); Glucose 89 mg/dL (74-99); Non-African American GFR(CKD) 82 (>60 ml/min/1.73 sqM); Sodium 135 mmol/L (137-145); Total Bilirubin 0.7 mg/dL (0.2-1.3); Total Protein 7.5 g/dL (6.3-8.2)
[2023-01-20 22:34] LABS: Chol/HDL Ratio 2.49 Ratio
[2023-01-21 08:55] LABS: African American GFR (CKD) >90 (>60 ml/min/1.73 sqM); Anion Gap 8 mmol/L; Blood Urea Nitrogen 15 mg/dL (9-20); Carbon Dioxide 27 mmol/L (22-30); Chloride 103 mmol/L (98-107); Glucose 129 mg/dL (74-99); Non-African American GFR(CKD) 82 (>60 ml/min/1.73 sqM); Potassium 3.7 mmol/L (3.5-5.1); Sodium 138 mmol/L (137-145)
[2023-01-21 08:59] LABS: HCT 43.7 % (39.0-53.0); HGB 14.6 gm/dL (13.0-17.5); MCH 32.2 pg (25.0-35.0); MCHC 33.3 g/dL (31.0-37.0); MCV 96.6 fL (80.0-100.0); Platelet Count 241 k/uL (150-450); RBC 4.52 m/uL (4.30-5.90); RDW 12.8 % (11.5-15.5); WBC 8.4 k/uL (3.8-10.6)
[2023-01-21] MEDS: HEPARIN SODIUM,PORCINE/PF 5,000 UNIT/0.5 ML SYRINGE SQ SCH ×4 (09:03→23:10)
[2023-01-21] MEDS: ASPIRIN 325 MG TAB PO SCH (09:03)
[2023-01-21] MEDS: SODIUM CHLORIDE 0.9% 1,000 ML IV SCH ×2 (09:05→20:58)
--- NOTE | 2023-01-21 10:23 | P.GSCN ---
History of Present Illness Consult date: 01/21/23 Reason for Consult: High-grade and symptomatic left ICA stenosis. History of present illness: Patient is an 82-year-old male who presented with a chief complaint of aphasia patient has a history of postpolio syndrome. Patient has been falling at home. 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 History of Any Multi-Drug Resistant Organisms: None Reported Past Surgical History: No Surgical Hx Reported Past Psychological History: No Psychological Hx Reported Smoking Status: Never smoker Past Alcohol Use History: None Reported Past Drug Use History: None Reported Medications and Allergies Home Medications Medication Instructions Recorded Confirmed Type No Known Home Medications 01/18/23 01/18/23 History Allergies Allergy/AdvReac Type Severity Reaction Status Date / Time No Known Allergies Allergy Verified 01/18/23 13:13 Surgical - Exam Osteopathic Statement: *. No significant issues noted on an osteopathic structural exam other than those noted in the History and Physical/Consult. Vital Signs Temp Pulse Resp BP Pulse Ox 98.6 F 75 20 186/88 100 01/18/23 11:33 01/18/23 11:33 01/18/23 11:33 01/18/23 11:33 01/18/23 11:33 Patient Seen Date: 01/21/23 Patient Seen Time: 09:15 Patient is awake and alert. Heart was regular and lungs are clear. Neurologic exam demonstrates a residual expressive aphasia which according to others who have seen him previously has improved. There are no focal motor deficits of either upper or lower extremity. Femoral, popliteal and posterior tibial pulses are intact bilaterally. Results - Labs 01/21/23 08:04 01/21/23 08:04 Abnormal Lab Results - Last 24 Hours (Table) 01/20/23 01/20/23 01/20/23 Range/Units 15:23 21:15 21:15 WBC 10.7 H (3.8-10.6) k/uL Neutrophils # 7.8 H (1.3-7.7) k/uL Sodium 135 L (137-145) mmol/L Glucose (74-99) mg/dL HDL Cholesterol 68.80 H (40.00-60.00) mg/dL 01/21/23 Range/Units 08:04 WBC (3.8-10.6) k/uL Neutrophils # (1.3-7.7) k/uL Sodium (137-145) mmol/L Glucose 129 H (74-99) mg/dL HDL Cholesterol (40.00-60.00) mg/dL Microbiology - Last 24 Hours (Table) 01/18/23 13:41 Urine Culture - Preliminary Urine,Catheterized Gram Neg Bacilli Diabetes panel 01/20/23 01/20/23 01/21/23 Range/Units 15:23 21:15 08:04 Sodium 135 L 138 (137-145) mmol/L Potassium 4.4 3.7 (3.5-5.1) mmol/L Chloride 101 103 (98-107) mmol/L Carbon Dioxide 25 27 (22-30) mmol/L BUN 16 15 (9-20) mg/dL Creatinine 0.85 0.86 (0.66-1.25) mg/dL Glucose 89 129 H (74-99) mg/dL Calcium 9.4 9.0 (8.4-10.2) mg/dL AST 30 (17-59) U/L ALT 22 (4-49) U/L Alkaline Phosphatase 71 (38-126) U/L Total Protein 7.5 (6.3-8.2) g/dL Albumin 4.3 (3.5-5.0) g/dL Triglycerides 116.00 (0.00-149.00) mg/dL HDL Cholesterol 68.80 H (40.00-60.00) mg/dL Calcium panel 01/20/23 01/21/23 Range/Units 21:15 08:04 Calcium 9.4 9.0 (8.4-10.2) mg/dL Albumin 4.3 (3.5-5.0) g/dL Pituitary panel 01/20/23 01/21/23 Range/Units 21:15 08:04 Sodium 135 L 138 (137-145) mmol/L Potassium 4.4 3.7 (3.5-5.1) mmol/L Chloride 101 103 (98-107) mmol/L Carbon Dioxide 25 27 (22-30) mmol/L BUN 16 15 (9-20) mg/dL Creatinine 0.85 0.86 (0.66-1.25) mg/dL Glucose 89 129 H (74-99) mg/dL Calcium 9.4 9.0 (8.4-10.2) mg/dL Adrenal panel 01/20/23 01/21/23 Range/Units 21:15 08:04 Sodium 135 L 138 (137-145) mmol/L Potassium 4.4 3.7 (3.5-5.1) mmol/L Chloride 101 103 (98-107) mmol/L Carbon Dioxide 25 27 (22-30) mmol/L BUN 16 15 (9-20) mg/dL Creatinine 0.85 0.86 (0.66-1.25) mg/dL Glucose 89 129 H (74-99) mg/dL Calcium 9.4 9.0 (8.4-10.2) mg/dL Total Bilirubin 0.7 (0.2-1.3) mg/dL AST 30 (17-59) U/L ALT 22 (4-49) U/L Alkaline Phosphatase 71 (38-126) U/L Total Protein 7.5 (6.3-8.2) g/dL Albumin 4.3 (3.5-5.0) g/dL - Imaging CT scan - chest: report reviewed, image reviewed Additional studies: Carotid duplex images reviewed Assessment and Plan Assessment: 1: 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 2: History of postpolio syndrome. 3: Chronic indwelling urinary catheter. Plan: 1: Agree with currently incision medical therapy as well as speech therapy etc. 2: Patient will require carotid intervention. We'll discuss with neurology in reference to timing. Time with Patient: Less than 30
--- NOTE | 2023-01-21 13:06 | P.PN ---
Subjective Progress Note Date: 01/21/23 The patient is seen at bedside and feels about the same. Objective - Vital Signs Vital signs: Vital Signs Temp 98.2 F 01/21/23 04:00 Pulse 69 01/21/23 12:00 Resp 16 01/21/23 12:00 BP 181/90 01/21/23 12:00 Pulse Ox 96 01/21/23 12:00 FiO2 Intake & Output 01/20/23 01/21/23 01/21/23 18:59 06:59 18:59 Intake Total 120 Output Total 1400 600 Balance -1400 -600 120 Intake: Oral 120 Output: Urine 1400 600 Other: Voiding Method Indwelling Catheter Indwelling Catheter Indwelling Catheter # Bowel Movements 0 - Exam GENERAL: The patient is lying in bed and is not in acute distress. NEUROLOGICAL: Higher mental function: The patient is awake, alert, oriented to self and stated he was in the hospita. He correctly stated current year but did not know month. He has paraphrasic errors and appears having expressive aphasia and minimally better today. Patient is following simple commands. No neglect. Cranial nerves: The pupils are round, equal and reactive to light. Visual dyer are full to confrontation throughout. Extraocular movement is intact no nystagmus is noted. The facial strength is has left nasolabial flattening and stated looks normal. Hearing is severely decreased bilaterally to hand rubs. Tongue is midline and moved [id number] without any difficulty. No dysarthria is noted. Shoulder shrug is normal bilaterally. Motor: The strength is 5 over 5 throughout uppers while lowers was limited because of cooperation but had at least 4+ to 5-. Has some atrophy in lowers. Normal tone throughout. Cerebellum: Normal finger to nose bilaterally. Sensation: Sensation is normal to touch throughout. Reflexes (right/left): Somewhat limited because of his cooperation but has biceps and triceps 1-2+. Otherwise 1+ throughout.. Plantars are mute bilaterally. Some other workup during his hospital visit consisted of: Vitamin B12 is 547. TSH is 1.92 Lipid panel is triglyceride 116, cholesterol 171, HDL of 68 and LDL is 79. Hemoglobin A1c is 5.5. CT of the head is reviewed as hypodensity in left hospital lobe consistent with old or subacute infarct. No hemorrhage. Cerebral atrophy. I personally reviewed the CT of the head and I agree patient does have seems at least suba cute changes over left occipital temporal region. I don't have any prior images to compare with. Karen the brain is reported as there is evolving moderate to large size acute infarct in the left parietal occipital extending in the superior left temporal lobe. There is background moderate diffuse cerebral atrophy and chronic small vessel ischemic change. Complete occlusion of at least portion of the distal internal carotid artery. Possible significant stenosis along the course of basilar artery. Consider direct catheter angiogram in or CTA/MRA follow-up to further evaluate. CT angiography of the head and neck was reported as extensive ulcerative plaque at the left carotid bifurcation with subtotal occlusion left proximal internal heart or artery. There is hemodynamic stenosis of the left middle cerebral artery at the anterior sylvian figure. There is evidence of for multifocal hemo dynamic stenosis in the posterior cerebral arteries. There appears more severe on the left side. This corresponds to the area of old or subacute infarct left occipital lobe evident on the computed tomography scan 01/18/2023. Carotid duplex is reported as hemodynamic significant stenosis estimated greater than 70% on the left. 2-D echo was reported left ventricle ejection fraction of 55%. Mild to moderate mitral regurgitation. Mild to moderate tricuspid regurgitation. Seems that the patient got a repeat CT of the head and is reported as old left posterior temporal and occipital infarct without change. Cerebral atrophy and hydrocephalus. No hemorrhage. I personally asked the primary team Y the patient got CT of the head was it because there is worsening of the neurological but according to the primary team and there is felt the patient had expressive aphasia which we ordered a new but did not have any worsening of his condition. - Labs CBC & Chem 7: 01/21/23 08:04 01/21/23 08:04 Labs: Abnormal Lab Results - Last 24 Hours (Table) 01/20/23 01/20/23 01/20/23 Range/Units 15:23 21:15 21:15 WBC 10.7 H (3.8-10.6) k/uL Neutrophils # 7.8 H (1.3-7.7) k/uL Sodium 135 L (137-145) mmol/L Glucose (74-99) mg/dL HDL Cholesterol 68.80 H (40.00-60.00) mg/dL 01/21/23 Range/Units 08:04 WBC (3.8-10.6) k/uL Neutrophils # (1.3-7.7) k/uL Sodium (137-145) mmol/L Glucose 129 H (74-99) mg/dL HDL Cholesterol (40.00-60.00) mg/dL Microbiology - Last 24 Hours (Table) 01/18/23 13:41 Urine Culture - Preliminary Urine,Catheterized Gram Neg Bacilli Assessment and Plan Assessment: This is an 82-year-old gentleman with history of polio who presented emergency department because of confusion. On examination appears to patient has expressive aphasia but the feels he has underlying language the difficulty at baseline * Expressive aphasia and on the CT of the head it appears the patient has at least subacute changes over the left occipital temporal and parietal region suggestive of subacute ischemic stroke. 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 Continue Lipitor 40 mg daily at bedtime for signature prophylaxis Vascular surgery team is consulted for the left ICA stenosis which is symptomatic and they stated that he'll hold off any intervention until before now. Pending routine EEG because of confusion and I think the confusion was mostly from the expressive aphasia not underlying confusion or seizure. I discussed the case with Dr. March (interventional neurologist) since reported as multifocal hemodynamic stenosis in the posterior cerebral arteries appears more severe on the left as well as hemodynamic stenosis in the left middle cerebral artery. He will review the images and will get back with me. Neurochecks On cardiac monitoring PT,OT and BELT BUILDER HELPER are consulted. We'll defer the rest of the medical management to primary team For DVT prophylaxis the patient is on subcu heparin The plan was discussed with the patient and the primary attending Time with Patient: Less than 30
[2023-01-21] MEDS: CLOPIDOGREL 75 MG TAB PO SCH (16:49)
--- NOTE | 2023-01-21 17:20 | P.PN ---
Subjective Progress Note Date: 01/21/23 (delayed charting seen at 0900) Patient is an 82-year-old male with post polio syndrome requiring chronic indwelling Abl catheter who was brought in to the emergency department for altered mentation. Patient had been started on Bactrim for possible urinary tract infection by his primary care practitioner the day prior to admission. In the ER he underwent an extensive evaluation. He was afebrile on admission. Laboratory analysis was remarkable for white blood cell count of 15.4, sodium 136. Urinalysis showed 9 white blood cells. Patient was admitted for acute metabolic encephalopathy likely in the setting of urinary tract infection and sepsis. He was started on Rocephin and IV fluids. His Bal catheter was exchanged in the emergency department. Influenza A/B/RSV/COVID-19 testing was negative. He has some improvement in his mentation, but it was still not back to baseline despite IV fluids and abx of over 24 hours. He underwent MRI of the brain which showed an acute to subacute infarct. He was seen by neurology. He was placed on aspirin, Plavix, and Lipitor. He underwent carotid artery evaluation which revealed significant stenosis in the left internal carotid artery. Vascular surgery was consulted and patient will need carotid intervention, date to be determined after discussion with neurology. 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 Patient seen and examined at bedside. He is stil confused. He denies pain, no nausea, no vomiting, no diarrhea Vital signs reviewed General: nontoxic, no distress, appears at stated age Cardiovascular: S1S2 reg, no murmur, positive posterior tibial pulse bilateral, Lungs: CTA bilateral, no rhonchi, no rales , no accessory muscle use Abdominal: soft, nontender to palpation, no guarding, no appreciable organomegaly Ext: no gross muscle atrophy, no edema, no contractures Neuro: CN II-XI grossly intact, b/l LE weakness, antalgic gait. 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 Left internal carotid artery stenosis Sepsis secondary to urinary tract infection, POA Chronic indwelling Bla catheter, secondary to history of poliomyelitis Generalized weakness Acute metabolic encephalopathy Hypertensive urgency Mild hyponatremia, hypovolemic, resolved Imaging: MRI brain: Vulva moderate to large sized acute inferior infarct inferior left parietal lobe extending into the posterior superior left temporal lobe, moderate diffuse cerebral atrophy and chronic small vessel ischemic changes, complete occlusion of at least a portion of the distal left internal carotid artery possible significant stenosis along the basilar artery CTA head and neck: Extensive ulcerated plaque in the left carotid bifurcation with subtotal occlusion left proximal internal carotid artery, hemodynamic stenosis in the left middle cerebral artery and posterior cerebral artery CT head: Old left posterior temporal and occipital lobe infarct without change Echocardiogram: Ejection fraction 55%, grade 1 diastolic dysfunction, RVSP 33, mild mitral regurgitation and tricuspid regurgitation Carotid Doppler: Hemodynamically significant stenosis estimated at greater than 70% of the left internal carotid artery Data Review: Vital signs reviewed: Temperature 98.2, pulse 65, respirations 18, blood pressure 155/65, O2 sat 97% on room air Laboratory analysis was remarkable for white blood cell count 8.4 (down from 10.7), sodium 138 (up from 135), glucose 129, hemoglobin A1c 5 Plan: -Surgical consultation reviewed and case discussed with Dr. Mayer. Patient is close to stroke and has a greater than 90% ICA stenosis resulting with expressive aphasia and will require carotid intervention. - case discussed with Dr. Pickett on-start Plavix 75 mg daily, Awaiting to here back from interventional neurology - Await urine culture to finalize, Rocephin 2 grams daily D #4 - norvasc 5 mg daily - follow BP -Continue aspirin 325 mg daily, Lipitor 40 mg daily -PT/OT/speech recommendations DVT prophylaxis: Heparin This dictation was prepared using [employer] voice recognition software. Though every attempt is made to correct errors during during dictation some may still exist. Objective - Vital Signs Vital signs: Vital Signs Temp 98.2 F 01/21/23 04:00 Pulse 61 01/21/23 16:00 Resp 16 01/21/23 16:00 BP 173/86 01/21/23 16:00 Pulse Ox 97 01/21/23 16:00 FiO2 Intake & Output 01/20/23 01/21/23 01/21/23 18:59 06:59 18:59 Intake Total 240 Output Total 1400 600 Balance -1400 -600 240 Intake: Oral 240 Output: Urine 1400 600 Other: Voiding Method Indwelling Catheter Indwelling Catheter Indwelling Catheter # Bowel Movements 0 - Labs CBC & Chem 7: 01/21/23 08:04 01/21/23 08:04 Labs: Abnormal Lab Results - Last 24 Hours (Table) 01/20/23 01/20/23 01/20/23 Range/Units 15:23 21:15 21:15 WBC 10.7 H (3.8-10.6) k/uL Neutrophils # 7.8 H (1.3-7.7) k/uL Sodium 135 L (137-145) mmol/L Glucose (74-99) mg/dL HDL Cholesterol 68.80 H (40.00-60.00) mg/dL 01/21/23 Range/Units 08:04 WBC (3.8-10.6) k/uL Neutrophils # (1.3-7.7) k/uL Sodium (137-145) mmol/L Glucose 129 H (74-99) mg/dL HDL Cholesterol (40.00-60.00) mg/dL Microbiology - Last 24 Hours (Table) 01/18/23 13:41 Urine Culture - Preliminary Urine,Catheterized Gram Neg Bacilli
[2023-01-21] MEDS: ATORVASTATIN 40 MG TAB PO SCH (20:57)
[2023-01-22] MEDS: CLOPIDOGREL 75 MG TAB PO SCH (09:14)
[2023-01-22] MEDS: ASPIRIN 325 MG TAB PO SCH (09:14)
[2023-01-22] MEDS: HEPARIN SODIUM,PORCINE/PF 5,000 UNIT/0.5 ML SYRINGE SQ SCH ×2 (09:14→16:45)
[2023-01-22] MEDS: SODIUM CHLORIDE 0.9% 1,000 ML IV SCH (09:22)
--- NOTE | 2023-01-22 12:08 | P.PN ---
Subjective Progress Note Date: 01/22/23 Patient is an 82-year-old male with 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 Patient had been started on Bactrim for possible urinary tract infection by his primary care practitioner the day prior to admission. In the ER he underwent an extensive evaluation. He was afebrile on admission. La boratory analysis was remarkable for white blood cell count of 15.4, sodium 136. Urinalysis showed 9 white blood cells. Patient was admitted for acute metabolic encephalopathy likely in the setting of urinary tract infection and sepsis. He was started on Rocephin and IV fluids. His Bal catheter was exchanged in the emergency department. Influenza A/B/RSV/COVID-19 testing was negative. He has some improvement in his mentation, but it was still not back to baseline despite IV fluids and abx of over 24 hours. He underwent MRI of the brain which showed an acute to subacute infarct. He was seen by neurology. He was placed on aspirin, Plavix, and Lipitor. He underwent carotid artery miky luation which revealed significant stenosis in the left internal carotid artery. Vascular surgery was consulted and patient will need carotid intervention, date to be determined after discussion with neurology. 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 MRI brain: Vulva moderate to large sized acute inferior infarct inferior left parietal lobe extending into the posterior superior left temporal lobe, moderate diffuse cerebral atrophy and chronic small vessel ischemic changes, complete occlusion of at least a portion of the distal left internal carotid artery possible significant stenosis along the basilar artery CTA head and neck: Extensive ulcerated plaque in the left carotid bifurcation with subtotal occlusion left proximal internal carotid artery, hemodynamic stenosis in the left middle cerebral artery and posterior cerebral artery CT head: Old left posterior temporal and occipital lobe infarct without change Echocardiogram: Ejection fraction 55%, grade 1 diastolic dysfunction, RVSP 33, mild mitral regurgitation and tricuspid regurgitation Carotid Doppler: Hemodynamically significant stenosis estimated at greater than 70% of the left internal carotid artery Patient seen and examined at bedside. He is awake and answers yes/no questions easily. Even though we talked about it yesterday. He is unable to recall that he had a stroke. He is able to tell me that he is at a hospital, he is unable to tell me which one, and asking what state we are located in he list numbers, year-1982, month- November, Can identify a watch and a pen Vital signs reviewed General: nontoxic, no distress, appears at stated age Cardiovascular: S1S2 reg, no murmur, positive posterior tibial pulse bilateral, Lungs: CTA bilateral, no rhonchi, no rales , no accessory muscle use Abdominal: soft, nontender to palpation, no guarding, no appreciable organomegaly Ext: no gross muscle atrophy, no edema, no contractures Neuro: CN II-XI grossly intact, b/l LE weakness - He is able to tell me that he is at a hospital, he is unable to tell me which one, and asking what state we are located in he list numbers, year-1982, month- November, Can identify a watch and a pen Psych: Alert, appropriate affect Assessment: 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 Left internal carotid artery stenosis Sepsis secondary to E coli and enterococcus urinary tract infection, POA Chronic indwelling Bal catheter, secondary to history of poliomyelitis Generalized weakness Acute metabolic encephalopathy Hypertensive urgency Mild hyponatremia, hypovolemic, resolved Data Review: Vital signs reviewed-temperature 98.3, pulse 70, respirations 19, blood pressure 159/79, O2 sat 98% on room air Plan: -Start lisinopril 5 mg daily for blood pressure control -Await further neurology and vascular surgery recommendations regarding timing of carotid intervention - Rocephin 2 grams daily D #5 - follow BP -Continue aspirin 325 mg daily, Lipitor 40 mg daily -PT/OT/speech recommendations Case discussed with on 01/21/23. She would like to proceed with possible rehab placement. Patient will need repeat PT/OT/speech evaluation on 01/23. Could consider discharge on 01/23 if insurance auth is obtained. DVT prophylaxis: Heparin This dictation was prepared using [employer] voice recognition software. Though every attempt is made to correct errors during during dictation some may still exist. Objective - Vital Signs Vital signs: Vital Signs Temp 98.3 F 01/22/23 04:00 Pulse 70 01/22/23 04:00 Resp 19 01/22/23 04:00 BP 159/79 01/22/23 04:00 Pulse Ox 98 01/22/23 04:00 FiO2 Intake & Output 01/21/23 01/22/23 01/22/23 18:59 06:59 18:59 Intake Total 360 1000 Output Total 800 750 Balance -440 -750 1000 Intake: Oral 360 1000 Output: Urine 800 750 Other: Voiding Method Indwelling Catheter Indwelling Catheter - Labs CBC & Chem 7: 01/21/23 08:04 01/21/23 08:04 Labs: Microbiology - Last 24 Hours (Table) 01/18/23 13:41 Urine Culture - Preliminary Urine,Catheterized Escherichia coli Group D Enterococcus
[2023-01-22] MEDS: lisinopriL 5 MG TAB PO SCH (13:09)
--- NOTE | 2023-01-22 13:57 | P.PN ---
Subjective Progress Note Date: 01/22/23 The patient is seen at bedside and is accompanied by his who states the patient language is improving but has subtle confusion time to time. Patient denies of any new neurological issues. Objective - Vital Signs Vital signs: Vital Signs Temp 98.3 F 01/22/23 04:00 Pulse 70 01/22/23 04:00 Resp 19 01/22/23 04:00 BP 159/79 01/22/23 04:00 Pulse Ox 98 01/22/23 04:00 FiO2 Intake & Output 01/21/23 01/22/23 01/22/23 18:59 06:59 18:59 Intake Total 360 1000 Output Total 800 750 Balance -440 -750 1000 Intake: Oral 360 1000 Output: Urine 800 750 Other: Voiding Method Indwelling Catheter Indwelling Catheter - Exam GENERAL: The patient is lying in bed and is not in acute distress. NEUROLOGICAL: Higher mental function: The patient is awake, alert, oriented to self and stated he was in the hospita. He correctly stated current year but did not know month. He has paraphrasic errors and appears having expressive aphasia and minimally better today. Patient is following simple commands. No neglect. Cranial nerves: The pupils are round, equal and reactive to light. Visual dyer are full to confrontation throughout. Extraocular movement is intact no nystagmus is noted. The facial strength is has left nasolabial flattening and stated looks normal. Hearing is severely decreased bilaterally to hand rubs. Tongue is midline and moved [id number] without any difficulty. No dysarthria is noted. Shoulder shrug is normal bilaterally. Motor: The strength is 5 over 5 throughout uppers while lowers was limited b ecause of cooperation but had at least 4+ to 5-. Has some atrophy in lowers. Normal tone throughout. Cerebellum: Normal finger to nose bilaterally. Sensation: Sensation is normal to touch throughout. Reflexes (right/left): Somewhat limited because of his cooperation but has biceps and triceps 1-2+. Otherwise 1+ throughout.. Plantars are mute bilaterally. Some other workup during his hospital visit consisted of: Vitamin B12 is 547. TSH is 1.92 Lipid panel is triglyceride 116, cholesterol 171, HDL of 68 and LDL is 79. Hemoglobin A1c is 5.5. CT of the head is reviewed as hypodensity in left hospital lobe consistent with old or subacute infarct. No hemorrhage. Cerebral atrophy. I personally reviewed the CT of the head and I agree patient does have seems at least subacu te changes over left occipital temporal region. I don't have any prior images to compare with. Karen the brain is reported as there is evolving moderate to large size acute infarct in the left parietal occipital extending in the superior left temporal lobe. There is background moderate diffuse cerebral atrophy and chronic small vessel ischemic change. Complete occlusion of at least portion of the distal internal carotid artery. Possible significant stenosis along the course of basilar artery. Consider direct catheter angiogram in or CTA/MRA follow-up to further evaluate. CT angiography of the head and neck was reported as extensive ulcerative plaque at the left carotid bifurcation with subtotal occlusion left proximal internal heart or artery. There is hemodynamic stenosis of the left middle cerebral artery at the anterior sylvian figure. There is evidence of for multifocal hemodynamic stenosis in the posterior cerebral arteries. There appears more severe on the left side. This corresponds to the area of old or subacute infarct left occipital lobe evident on the computed tomography scan 01/18/2023. Carotid duplex is reported as hemodynamic significant stenosis estimated greater than 70% on the left. 2-D echo was reported left ventricle ejection fraction of 55%. Mild to moderate mitral regurgitation. Mild to moderate tricuspid regurgitation. Seems that the patient got a repeat CT of the head and is reported as old left posterior temporal and occipital infarct without change. Cerebral atrophy and hydrocephalus. No hemorrhage. I personally asked the primary team Y the patient got CT of the head was it because there is worsening of the neurological but according to the primary team and there is felt the patient had expressive aphasia which we ordered a new but did not have any worsening of his condition. - Labs CBC & Chem 7: 01/21/23 08:04 01/21/23 08:04 Labs: Microbiology - Last 24 Hours (Table) 01/18/23 13:41 Urine Culture - Preliminary Urine,Catheterized Escherichia coli Group D Enterococcus Assessment and Plan Assessment: This is an 82-year-old gentleman with history of polio who presented emergency department because of confusion. On examination appears to patient has expressive aphasia but the feels he has underlying language the difficulty at baseline * Expressive aphasia and on the CT of the head it appears the patient has at least subacute changes over the left occipital temporal and parietal region suggestive of subacute ischemic stroke. 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 Continue Lipitor 40 mg daily at bedtime for stroke prophylaxis Vascular surgery team is consulted for the left ICA stenosis which is sympto matic and they stated that he'll hold off any intervention until before now. Pending routine EEG because of confusion and I think the confusion was mostly from the expressive aphasia not underlying confusion or seizure. His feels has confusion time to time and I feel likely Delerium from hospital stay. I discussed the case with Dr. March (interventional neurologist) since reported as multifocal hemodynamic stenosis in the posterior cerebral arteries appears more severe on the left as well as hemodynamic stenosis in the left middle cerebral artery. He had difficulties opening imaging. I feel, since patient has not worsened and outside window no intervention needed at this time. Can c onsider follow-up as outpatient with them. Neurochecks On cardiac monitoring PT,OT and CYBER SYSTEMS ADMINISTRATOR are consulted. We'll defer the rest of the medical management to primary team For DVT prophylaxis the patient is on subcu heparin The plan was discussed with the patient and his who is at bedside. Dr. Bhagat will start neurology service tomorrow A.M. Time with Patient: Less than 30
[2023-01-22] MEDS: ATORVASTATIN 40 MG TAB PO SCH (19:58)
[2023-01-23] MEDS: SODIUM CHLORIDE 0.9% 1,000 ML IV SCH ×2 (00:48→12:29)
[2023-01-23] MEDS: HEPARIN SODIUM,PORCINE/PF 5,000 UNIT/0.5 ML SYRINGE SQ SCH ×4 (00:53→23:41)
[2023-01-23] MEDS: CLOPIDOGREL 75 MG TAB PO SCH (09:59)
[2023-01-23] MEDS: ASPIRIN 325 MG TAB PO SCH (09:59)
[2023-01-23] MEDS: lisinopriL 5 MG TAB PO SCH (09:59)
--- NOTE | 2023-01-23 11:23 | P.PN ---
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 Patient had been started on Bactrim for possible urinary tract infection by his primary care practitioner the day prior to admission. In the ER he underwent an extensive evaluation. He was afebrile on admission. Laboratory analysis was remarkable for white blood cell count of 15.4, sodium 136. Urinalysis showed 9 white blood cells. Patient was admitted for acute metabolic encephalopathy likely in the setting of urinary tract infection and sepsis. He was started on Rocephin and IV fluids. His Bal catheter was ex changed in the emergency department. Influenza A/B/RSV/COVID-19 testing was negative. He has some improvement in his mentation, but it was still not back to baseline despite IV fluids and abx of over 24 hours. He underwent MRI of the brain which showed an acute to subacute infarct. He was seen by neurology. He was placed on aspirin, Plavix, and Lipitor. He underwent carotid artery evaluation which revealed significant stenosis in the left internal carotid artery. Vascular surgery was consulted and patient will need carotid intervention, date to be determined after discussion with neurology. 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 MRI brain: Vulva moderate to large sized acute inferior infarct inferior left parietal lobe extending into the posterior superior left temporal lobe, moderate diffuse cerebral atrophy and chronic small vessel ischemic changes, complete occlusion of at least a portion of the distal left internal carotid artery possible significant stenosis along the basilar artery CTA head and neck: Extensive ulcerated plaque in the left carotid bifurcation with subtotal occlusion left proximal internal carotid artery, hemodynamic stenosis in the left middle cerebral artery and posterior cerebral artery CT head: Old left posterior temporal and occipital lobe infarct without change Echocardiogram: Ejection fraction 55%, grade 1 diastolic dysfunction, RVSP 33, mild mitral regurgitation and tricuspid regurgitation Carotid Doppler: Hemodynamically significant stenosis estimated at greater than 70% of the left internal carotid artery Patient seen and examined at bedside. No acute events overnight. He does not recall being told about the stroke. He denies any chest pain, shortness of breath, abdominal pain, nausea, vomiting, diarrhea, constipation, or urinary complaints. 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 Sepsis secondary to E coli and enterococcus urinary tract infection, POA Chronic indwelling Bal catheter, secondary to history of poliomyelitis Generalized weakness Acute metabolic encephalopathy Hypertensive urgency Mild hyponatremia, hypovolemic, resolved Data Review: Vital signs reviewed-temperature 98.3, pulse 58, respiratory rate 18, blood pressure 148/78, saturating at 98% on room air Plan: -Await further neurology and vascular surgery recommendations regarding timing of carotid intervention -Rocephin 2 grams daily D #7, complete a total of 14 day course given complicated UTI -On lisinopril 5 mg daily for blood pressure control -Continue aspirin 325 mg daily, Lipitor 40 mg daily -PT/OT/speech recommendations DVT prophylaxis: Heparin Discharge place: Likely rehab Discharge time: Pending bed availability Objective - Vital Signs Vital signs: Vital Signs Temp 98.1 F 01/23/23 08:00 Pulse 50 L 01/23/23 08:00 Resp 18 01/23/23 08:00 BP 161/77 01/23/23 08:00 Pulse Ox 99 01/23/23 08:00 FiO2 Intake & Output 01/22/23 01/23/23 01/23/23 18:59 06:59 18:59 Intake Total 1238 120 Output Total 1000 525 550 Balance 238 -525 -430 Intake: Oral 1238 120 Output: Urine 1000 525 550 Other: Voiding Method Indwelling Catheter Indwelling Catheter Indwelling Catheter # Voids 0 - Labs CBC & Chem 7: 01/21/23 08:04 01/21/23 08:04 Labs: Microbiology - Last 24 Hours (Table) 01/18/23 13:41 Urine Culture - Final Urine,Catheterized Escherichia coli Enterococcus faecalis
--- NOTE | 2023-01-23 14:02 | P.PN ---
Subjective Progress Note Date: 01/23/23 Patient was initially seen by Dr. Wes Pickett. Please refer to his note for details. Patient is a 82-year-old right-handed male, with acute stroke over the left temporal/parietal occipital region. Patient has symptomatic left ICA stenosis. Vascular surgery is on board. Patient's was also present at this time. She mentions that patient has history of polio as a child when he was 7 years old. About 10-12 years ago, he started having problems with the balance and falls and started using a walker. When he goes outside, he is in a wheelchair. He has been catheterized since November 2020. Patient was brought to the hospital because he fell 2 times on 01/17/2023. Patient's spoke to his primary physician, who felt patient has a UTI, was given Bactrim as an outpatient. Next day on Monday he was not better, therefore his brought him to the hospital. Patient was found to have an acute stroke. He also has a UTI. Some other workup during his hospital visit consisted of: Vitamin B12 is 547. TSH is 1.92 Lipid panel is triglyceride 116, cholesterol 171, HDL of 68 and LDL is 79. Hemoglobin A1c is 5.5. CT of the head is reviewed as hypodensity in left hospital lobe consistent with old or subacute infarct. No hemorrhage. Cerebral atrophy. I personally reviewed the CT of the head and I agree patient does have seems at least subacute changes over left occipital temporal region. I don't have any prior images to compare with. MRI the brain is reported as there is evolving moderate to large size acute infarct in the left parietal occipital extending in the superior left temporal lobe. There is background moderate diffuse cerebral atrophy and chronic small vessel ischemic change. Complete occlusion of at least portion of the distal internal carotid artery. Possible significant stenosis along the course of basilar artery. Consider direct catheter angiogram in or CTA/MRA follow-up to further evaluate. CT angiography of the head and neck was reported as extensive ulcerative plaque at the left carotid bifurcation with subtotal occlusion left proximal internal heart or artery. There is hemodynamic stenosis of the left middle cerebral artery at the anterior sylvian figure. There is evidence of for multifocal hemodynamic stenosis in the posterior cerebral arteries. There appears more severe on the left side. This corresponds to the area of old or subacute infarct left occipital lobe evident on the computed tomography scan 01/18/2023. Carotid duplex is reported as hemodynamic significant stenosis estimated greater than 70% on the left. 2-D echo was reported left ventricle ejection fraction of 55%. Mild to moderate mitral regurgitation. Mild to moderate tricuspid regurgitation. Seems that the patient got a repeat CT of the head and is reported as old left posterior temporal and occipital infarct without change. Cerebral atrophy and hydrocephalus. No hemorrhage. I personally asked the primary team Y the patient got CT of the head was it because there is worsening of the neurological but according to the primary team and there is felt the patient had expressive aphasia which we ordered a new but did not have any worsening of his condition. Objective - Vital Signs Vital signs: Vital Signs Temp 98.0 F 01/23/23 12:00 Pulse 53 L 01/23/23 12:00 Resp 18 01/23/23 12:00 BP 165/78 01/23/23 12:00 Pulse Ox 98 01/23/23 12:00 FiO2 Intake & Output 01/22/23 01/23/23 01/23/23 18:59 06:59 18:59 Intake Total 1238 120 Output Total 1000 525 850 Balance 641 -189 -070 Intake: Oral 1238 120 Output: Urine 1000 525 850 Other: Voiding Method Indwelling Catheter Indwelling Catheter Indwelling Catheter # Voids 0 - Exam Patient's mental status is normal. Patient has slurred speech, which according to patient's is chronic from his polio. The only thing is that he is speaking slightly slower, but no worsening of baseline dysarthria. No aphasia. Patient can name and repeat very well. On cranial nerve exam showed pupils are round and reacting, visual field revealed possible right upper quadrant visual field defect. Face is symmetric and tongue process of midline. On muscle strength testing there is no pronator drift and the strength is normal in arms and legs. Proximal lower extremities not checked. Sensory touch is equal with no neglect on double simultaneous stimulation. - Labs CBC & Chem 7: 01/21/23 08:04 01/21/23 08:04 Labs: Microbiology - Last 24 Hours (Table) 01/18/23 13:41 Urine Culture - Final Urine,Catheterized Escherichia coli Enterococcus faecalis Assessment and Plan Assessment: This is an 82-year-old gentleman with history of polio who presented emergency department because of confusion. On examination appears to patient has expressive aphasia but the feels he has underlying language the difficulty at baseline from his previous polio. * Acute ischemic stroke, moderate to large size involving the inferior left parietal occipital lobe extending into the posterior superior left temporal lobe. Patient had presented with expressive aphasia. 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 Continue Lipitor 40 mg daily at bedtime for stroke prophylaxis. Start Pepcid 20 mg twice a day for prophylaxis. Vascular surgery team is consulted for the left ICA stenosis which is sympto matic. Await vascular surgery final recommendation. EEG has been canceled. Confusion was likely due to an acute stroke. Apparently Dr. Pickett has discussed the case with Dr. March (interventional n eurologist) since reported as multifocal hemodynamic stenosis in the posterior cerebral arteries appears more severe on the left as well as hemodynamic stenosis in the left middle cerebral artery. He had difficulties opening imaging. Dr. Pickett has felt that since patient has not worsened and outside window no intervention needed at this time. Can consider follow-up as outpatient with them. Neurochecks On cardiac monitoring PT,OT and EDUCATIONAL TECHNOLOGIST are consulted. We'll defer the rest of the medical management to primary team For DVT prophylaxis the patient is on subcu heparin
--- NOTE | 2023-01-23 17:02 | P.PN ---
Subjective Progress Note Date: 01/23/23 Principal diagnosis: Carotid stenosis Patient was seen and examined today as a follow-up for TIA with symptomatic left ICA stenosis. Speech therapy is currently working with patient. His is at the bedside. He remains pleasantly confused. He is able to follow commands and answer simple questions. No reported increased focal deficits. Patient currently on aspirin, Plavix and statin. Objective - Vital Signs Vital signs: Vital Signs Temp 98.3 F 01/23/23 04:00 Pulse 58 L 01/23/23 04:00 Resp 18 01/23/23 04:00 BP 148/78 01/23/23 04:00 Pulse Ox 98 01/23/23 04:00 FiO2 Intake & Output 01/22/23 01/23/23 01/23/23 18:59 06:59 18:59 Intake Total 1238 120 Output Total 1000 525 550 Balance 238 -525 -430 Intake: Oral 1238 120 Output: Urine 1000 525 550 Other: Voiding Method Indwelling Catheter Indwelling Catheter # Voids 0 - Exam General appearance: The patient is alert, pleasantly confused appears in no acute distress. HET: Head is normocephalic and atraumatic. Pupils are equal and reactive. Neck: Supple. Heart: Regular. Lungs: Equal expansion, normal respiratory effort. Abdomen: Soft, nontender, nondistended. Extremities: Normal skin color and turgor. No cyanosis, rash, ulceration, clubbing, or edema. Palpable bilateral radial pulses. Neurological: Patient with slurred speech, speaking slower. Patient has facial symmetry. Good strength and tone bilateral upper and lower extremities. - Labs CBC & Chem 7: 01/21/23 08:04 01/21/23 08:04 Labs: Microbiology - Last 24 Hours (Table) 01/18/23 13:41 Urine Culture - Final Urine,Catheterized Escherichia coli Enterococcus faecalis Assessment and Plan Assessment: 1. Greater than 90% left ICA stenosis with expressive aphasia 2. History of post polio syndrome 3. Urinary tract infection 4. Chronic indwelling urinary catheter Plan: Continue with medical therapy and speech therapy. Patient scheduled for EEG today. Discussed with neurology and awaiting their recommendation on timing for surgical intervention for high-grade left ICA stenosis, which can be scheduled as an outpatient if okay with neurology. This was discussed with both the patient and his who is at the bedside. The impression and plan of care has been dictated as directed. I performed a history and examination of this patient, discussed the same with the dictator. I agree with the dictator's note ,documented as a scribe. Any additional findings or plans will be noted.
[2023-01-23] MEDS ORDERED: HALOPERIDOL LACTATE 5 MG/ML 1 ML VIAL IVP PRN (18:43)
[2023-01-23] MEDS ORDERED: polyethylene glycoL 3350 17 GM POWD.PACK PO SCH (20:00)
[2023-01-23] MEDS: FAMOTIDINE 20 MG TAB PO SCH (20:52)
[2023-01-23] MEDS: ATORVASTATIN 40 MG TAB PO SCH (20:52)
--- NOTE | 2023-01-23 21:51 | CDI ---
Documentation Clarification Form Date: 01/23/2023 9:41:59 PM From: Cintia Butler RN, CCDS Email: [email or web address] Admit Date: 01/20/2023 11:02:00 AM Patient Name: Norman Taveras Visit Number: [id number] Discharge Date: ATTENTION: The Clinical Documentation Specialists (CDI) and [facility] Coding Staff appreciate your assistance in clarifying documentation. Please respond to the clarification below the line at the bottom and electronically sign. The CDI & [facility] Coding staff will review the response and follow-up if needed. Please note: Queries are made part of the Legal Health Record. If you have any questions, please contact the author of this message via ITS. Dr. Dorys Cook UTI and sepsis is documented in the progress notes and the patient has a chronic Bal catheter. Additional clarification regarding the etiology of the UTI is requested. History/Risk Factors: poliomyelitis, chronic Bal catheter in since 2020, previous urinary tract infections and encephalopathy. Admitted with acute metabolic encephalopathy likely in the setting of urinary tract infection and sepsis. Clinical Indicators: 01/21 and 01/22 IM: "Sepsis secondary to E coli and enterococcus urinary tract infection, POA. Chronic indwelling Bal catheter, secondary to history of poliomyelitis." 01/18 Urine culture: E-coli 01/18 UA: moderate leukocyte esterase, WBC's and bacteria Lab results: 01/18 WBC 15.4 Treatment: Bal catheter exchanged in the ED. IV Rocephin 1gm IVP x1 on 01/18 then 2gm IV Q24H. 1L IV bolus on 01/18 then 0.9 NS @75/hr Please clarify the etiology of the UTI, if known: [ X ] Bal catheter [ ] Other condition, please specify [ ] Unable to determine MTDD
[2023-01-24] MEDS: SODIUM CHLORIDE 0.9% 1,000 ML IV SCH (06:04)
[2023-01-24 08:25] VITALS: BP 156/78
[2023-01-24] MEDS: CLOPIDOGREL 75 MG TAB PO SCH (08:42)
[2023-01-24] MEDS: lisinopriL 5 MG TAB PO SCH (08:42)
[2023-01-24] MEDS: HEPARIN SODIUM,PORCINE/PF 5,000 UNIT/0.5 ML SYRINGE SQ SCH (08:42)
[2023-01-24] MEDS: ASPIRIN 325 MG TAB PO SCH (08:42)
[2023-01-24] MEDS: FAMOTIDINE 20 MG TAB PO SCH (08:42)
--- NOTE | 2023-01-24 10:10 | P.DS ---
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 Patient had been started on Bactrim for possible urinary tract infection by his primary care practitioner the day prior to admission. In the ER he underwent an extensive evaluation. He was afebrile on admission. Laboratory analysis was remarkable for white blood cell count of 15.4, sodium 136. Urinalysis showed 9 white blood cells. Patient was admitted for acute metabolic encephalopathy likely in the setting of urinary tract infection and sepsis. He was started on Rocephin and IV fluids. His Bal catheter was exchanged in the emergency department. Influenza A/B/RSV/COVID-19 testing was negative. He has some improvement in his mentation, but it was still not back to baseline despite IV fluids and abx of over 24 hours. He underwent MRI of the brain which showed an acute to subacute infarct. He was seen by neurology. He was placed on aspirin, Plavix, and Lipitor. He underwent carotid artery evaluation which revealed significant stenosis in the left internal carotid artery. Vascular surgery was consulted and patient will need carotid interve ntion, however will need to follow-up as outpatient. Patient being discharged on 7 more days of oral antibiotics to complete a course of 14 days for complicated UTI. 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 MRI brain: Vulva moderate to large sized acute inferior infarct inferior left parietal lobe extending into the posterior superior left temporal lobe, moderate diffuse cerebral atrophy and chronic small vessel ischemic changes, complete occlusion of at least a portion of the distal left internal carotid artery possible significant stenosis along the basilar artery CTA head and neck: Extensive ulcerated plaque in the left carotid bifurcation with subtotal occlusion left proximal internal carotid artery, hemodynamic stenosis in the left middle cerebral artery and posterior cerebral artery CT head: Old left posterior temporal and occipital lobe infarct without change Echocardiogram: Ejection fraction 55%, grade 1 diastolic dysfunction, RVSP 33, mild mitral regurgitation and tricuspid regurgitation Carotid Doppler: Hemodynamically significant stenosis estimated at greater than 70% of the left internal carotid artery Patient seen and examined at bedside. Vital signs reviewed and stable. General: nontoxic, no distress, appears at stated age Cardiovascular: S1S2 reg, no murmur, positive posterior tibial pulse bilateral, Lungs: CTA bilateral, no rhonchi, no rales , no accessory muscle use Abdominal: soft, nontender to palpation, no guarding, no appreciable organomegaly Ext: no gross muscle atrophy, no edema, no contractures Neuro: CN II-XI grossly intact, b/l LE weakness, has dysarthria Psych: Alert, oriented 2, appropriate affect A total of 38 minutes of time were spent preparing this complex discharge summary. Patient was discharged on at 10:06. Patient Condition at Discharge: Stable Plan - Discharge Summary Discharge Rx Participant: No New Discharge Prescriptions: New Cefdinir 300 mg PO Q12HR #14 cap Atorvastatin [Lipitor] 40 mg PO HS #0 tab Famotidine [Pepcid] 20 mg PO BID #0 tab Acetaminophen Tab [Tylenol] 650 mg PO Q6HR PRN tab PRN Reason: Mild Pain Or Fever > 100.5 Aspirin 325 mg PO DAILY tab polyethylene glycoL 3350 [Miralax] 17 gm PO DAILY@2000 packet Clopidogrel [Plavix] 75 mg PO DAILY #0 tab lisinopriL [Zestril] 5 mg PO DAILY tab Discharge Medication List Acetaminophen Tab [Tylenol] 650 mg PO Q6HR PRN tab 01/24/23 [Rx] Aspirin 325 mg PO DAILY tab 01/24/23 [Rx] Atorvastatin [Lipitor] 40 mg PO HS #0 tab 01/24/23 [Rx] Cefdinir 300 mg PO Q12HR #14 cap 01/24/23 [Rx] Clopidogrel [Plavix] 75 mg PO DAILY #0 tab 01/24/23 [Rx] Famotidine [Pepcid] 20 mg PO BID #0 tab 01/24/23 [Rx] lisinopriL [Zestril] 5 mg PO DAILY tab 01/24/23 [Rx] polyethylene glycoL 3350 [Miralax] 17 gm PO DAILY@1999 packet 01/24/23 [Rx] Follow up Appointment(s)/Referral(s): Kade Moyer MD [Primary Care Provider] - 1-2 days Fide Bal DO [STAFF PHYSICIAN] - 3 Days (Call Office to discuss surgical plan/intervention for left carotid stenosis) Haroldo Chua MD [Medical Doctor] - 1 Week Patient Instructions/Handouts: Ischemic Stroke (DC), Carotid Artery Disease (DC), Urinary Tract Infection in Men (DC) Activity/Diet/Wound Care/Special Instructions: Please see your PCP, vascular surgeon and neurologist as soon as possible. You will likely need surgery for your neck blood vessel, which may be the reason for your stroke. Discharge Disposition: TRANSFER TO SNF/ECF
--- NOTE | 2023-01-24 10:46 | P.PN ---
Subjective Progress Note Date: 01/24/23 Principal diagnosis: Carotid stenosis Patient was seen and examined today as a follow-up for TIA with symptomatic left ICA stenosis. No acute changes through the night. No new focal deficits. Patient currently on aspirin, Plavix and statin. Objective - Vital Signs Vital signs: Vital Signs Temp 98.3 F 01/24/23 08:00 Pulse 56 L 01/24/23 08:00 Resp 14 01/24/23 08:00 BP 156/78 01/24/23 08:00 Pulse Ox 97 01/24/23 08:44 FiO2 Intake & Output 01/23/23 01/24/23 01/24/23 18:59 06:59 18:59 Intake Total 120 118 Output Total 850 1220 Balance -730 -1220 118 Intake: Oral 120 118 Output: Urine 850 1220 Other: Voiding Method Indwelling Catheter Indwelling Catheter - Exam General appearance: The patient is alert, pleasantly confused appears in no acute distress. HET: Head is normocephalic and atraumatic. Pupils are equal and reactive. Neck: Supple. Heart: Regular. Lungs: Equal expansion, normal respiratory effort. Abdomen: Soft, nontender, nondistended. Extremities: Normal skin color and turgor. No cyanosis, rash, ulceration, clubbing, or edema. Palpable bilateral radial pulses. Neurological: Patient with slurred speech, speaking slower. Patient has facial symmetry. Good strength and tone bilateral upper and lower extremities. - Labs CBC & Chem 7: 01/21/23 08:04 01/21/23 08:04 Assessment and Plan Assessment: 1. Greater than 90% left ICA stenosis with expressive aphasia 2. TIA 3. History of post polio syndrome 4. Urinary tract infection 5. Chronic indwelling urinary catheter Plan: Continue with medical therapy. Discussed with patient and follow up next week with Dr. Bal to schedule surgical intervention for symptomatic high-grade left ICA stenosis. Plan discussed with Dr. Bhagat from neurology to proceed with surgical intervention within the next 2 weeks. Patient is cleared from vascular surgery for discharge. The impression and plan of care has been dictated as directed. I performed a history and examination of this patient, discussed the same with the dictator. I agree with the dictator's note ,documented as a scribe. Any additional findings or plans will be noted.
[2023-01-24 11:56] VITALS: PULSE 55; RESP 16; TEMP 97.7
== END 2023-01-24 13:22 | DRG 64 ==
LOC: EC 11:29 → 5NMEDONC 14:26 → OBSVTOIN 01-20 11:02 → 3SCARD 01-20 18:53
PROVIDERS: ADMIT Internal Medicine; ATTEND Internal Medicine
DX: I63.9 Cerebral infarction, unspecified (principal); A41.51 Sepsis due to Escherichia coli [E. coli]; A41.81 Sepsis due to Enterococcus; R65.20 Severe sepsis without septic shock; G93.41 Metabolic encephalopathy; G91.9 Hydrocephalus, unspecified; T83.511A Infection and inflammatory reaction due to indwelling urethral catheter, initial encounter; E87.1 Hypo-osmolality and hyponatremia; N39.0 Urinary tract infection, site not specified; G31.9 Degenerative disease of nervous system, unspecified; I66.02 Occlusion and stenosis of left middle cerebral artery; R47.01 Aphasia; Z66 Do not resuscitate; Z20.822 Contact with and (suspected) exposure to COVID-19; R29.704 NIHSS score 4; B91 Sequelae of poliomyelitis; E86.1 Hypovolemia; I16.0 Hypertensive urgency; R47.1 Dysarthria and anarthria; I65.22 Occlusion and stenosis of left carotid artery; I08.1 Rheumatic disorders of both mitral and tricuspid valves; I10 Essential (primary) hypertension; Z87.440 Personal history of urinary (tract) infections; W19.XXXA Unspecified fall, initial encounter; Y92.009 Unspecified place in unspecified non-institutional (private) residence as the place of occurrence of the external cause; Y84.6 Urinary catheterization as the cause of abnormal reaction of the patient, or of later complication, without mention of misadventure at the time of the procedure
CPT/HCPCS: 36415; 70450; 70496; 70498; 70551; 71046; 80048; 80053; 80061; 81001; 82140; 82607; 83036; 83605; 83735; 84443; 84484; 85025; 85027; 85610; 85730; 87077; 87086; 87186; 87636; 93005; 93306; 93880; 94760; 96361; 96372; 96374; 99285

== ENCOUNTER 2023-02-10 06:19 | Inpatient (IN) | payer MEDICARE ==
[2023-02-07 12:39] VITALS: BMI 222.9
[2023-02-10] MEDS ORDERED: ASPIRIN 81 MG PO PRN (06:38)
[2023-02-10] MEDS ORDERED: NITROGLYCERIN SL TABS 0.4 MG TAB SUBLINGUAL PRN (06:38)
[2023-02-10] MEDS ORDERED: SODIUM CHLORIDE 0.9% 1,000 ML in EMPTY BAG 1 BAG IV ONE (06:38)
[2023-02-10] MEDS ORDERED: ALPRAZolam 0.5 MG TAB PO PRN (06:38)
[2023-02-10] MEDS ORDERED: ALPRAZolam 0.25 MG TAB PO PRN ×2 (06:38→08:50)
[2023-02-10] MEDS ORDERED: CLOPIDOGREL 75 MG TAB PO PRN (06:38)
[2023-02-10] MEDS ORDERED: ceFAZolin 2 GM in SODIUM CHLORIDE 0.9% 500 ML 500 ML IRRIGATION PRN (07:00)
[2023-02-10] MEDS ORDERED: SODIUM CHLORIDE 0.9% 1,000 ML IV ONE (07:27)
[2023-02-10 07:41] LABS: Basophils % (A) 0 %; Eosinophils # (A) 0.3 k/uL (0-0.7); Eosinophils % (A) 4 %; HCT 42.2 % (39.0-53.0); HGB 14.1 gm/dL (13.0-17.5); Lymphocytes % (A) 12 %; MCH 32.3 pg (25.0-35.0); MCHC 33.4 g/dL (31.0-37.0); MCV 96.6 fL (80.0-100.0); Mean Platelet Volume 7.7; Monocytes # (A) 0.7 k/uL (0-1.0); Monocytes % (A) 8 %; Neutrophils # (A) 6.1 k/uL (1.3-7.7); Neutrophils % (A) 73 %; Platelet Count 303 k/uL (150-450); RBC 4.36 m/uL (4.30-5.90); RDW 12.6 % (11.5-15.5); WBC 8.4 k/uL (3.8-10.6)
[2023-02-10 08:02] LABS: Calcium 9.5 mg/dL (8.4-10.2); Potassium 4.8 mmol/L (3.5-5.1)
[2023-02-10] MEDS ORDERED: MELATONIN 3 MG TABLET PO PRN (08:50)
[2023-02-10] MEDS ORDERED: ACETAMINOPHEN TAB 325 MG TAB PO PRN (08:50)
--- NOTE | 2023-02-10 08:54 | P.CONS ---
History of Present Illness - Reason for Consult Consult date: 02/10/23 - History of Present Illness Patient is a 82-year-old male with history of recent ischemic CVA involving left parietal and occipital regions with persistent aphasia, left internal carotid artery stenosis, chronic indwelling Hancock catheter, history of poliomyelitis, hypertension presenting for trans-carotid artery revascularization of the left. [facility] physicians has been consulted for medical management and perioperative evaluation. He is currently staying at subacute rehab for PT/OT/speech therapy after his recent stroke. He denies any chest pain, shortness of breath, abdominal pain, nausea, vomiting, or bowel complaints. He has a Hancock catheter in place. He claims that he is able to ambulate with walker, denies any chest pain or shortness of breath with ambulation. However, he still requires assistance with transferring out of the bed. Pertinent positives and negatives as discussed in HPI, a complete review of systems was performed and all other systems are negative. Patient seen and examined at bedside. Vital signs reviewed General: nontoxic, no distress, appears at stated age Derm: warm, dry Head: atraumatic, normocephalic, symmetric Eyes: EOMI, no lid lag, anicteric sclera, pupils equal round reactive to light ENT: Nose and ears atraumatic Neck: No thyromegaly, supple Mouth: no lip lesion, mucus membranes moist Cardiovascular: S1S2 reg, no murmur, no edema Lungs: clear to auscultation bilateral, no rhonchi, no rales, no wheeze, no accessory muscle use Abdominal: soft, nontender to palpation, no guarding, no appreciable organomegaly Ext: no gross muscle atrophy, muscle strength muscle strength 5 out of 5 in all 4 extremities, no contractures Neuro: Has expressive aphasia, and dysdiadochokinesia Psych: Alert, oriented, appropriate affect Assessment/Plan: Perioperative evaluation Symptomatic left carotid artery stenosis Recent ischemic CVA involving left parietal and occipital regions Expressive aphasia Dysdiadochokinesia History of polymyositis Chronic indwelling Hancock catheter Hypertension -RCRI score - 1 point, class II risk, signify 6% 30 day risk of , [place], cardiac arrest -EKG personally interpreted from 01/24, shows sinus rhythm -Echocardiogram report reviewed 01/20 shows LVEF 55 percent, RVSP 33 -CBC shows normal WBC count of 8.4, hemoglobin 14.1, BMP shows sodium 137, creatinine is 1.09 -We'll hold the morning dose of lisinopril, can be given later today after the surgery -Continue the statin -Dual antiplatelet therapy per vascular surgery -Patient is medically optimized for surgery -Due to his current functional capacity, patient will likely be discharged back to subacute rehab after surgery Thank you for allowing us to participate in the care of this pleasant patient. Do not hesitate to contact us with questions. Someone can be reached from the [facility] hospitalist group all hours of the day at [phone] or via [employer]. Past Medical History Past Medical History: Hypertension, Prostate Disorder Additional Past Medical History / Comment(s): post polio syndrome- uses walker & wheelchair- requires assistance ., indwelling hancock catheter, hx uti's, bph, recent hospitalization 01/18/23 to 01/24/23 with CVA which affected speech, memory and some confusion., currently at [facility] for rehab since stroke. History of Any Multi-Drug Resistant Organisms: None Reported Past Surgical History: No Surgical Hx Reported Additional Past Surgical History / Comment(s): mole removed from back (2020). Past Anesthesia/Blood Transfusion Reactions: No Reported Reaction Past Psychological History: No Psychological Hx Reported Smoking Status: Never smoker Past Alcohol Use History: Rare Past Drug Use History: None Reported - Past Family History Mother Family Medical History: No Reported History Medications and Allergies Home Medications Medication Instructions Recorded Confirmed Type Aspirin 325 mg PO DAILY tab 01/24/23 02/07/23 Rx Atorvastatin [Lipitor] 40 mg PO HS #0 tab 01/24/23 02/07/23 Rx Clopidogrel [Plavix] 75 mg PO DAILY #0 tab 01/24/23 02/07/23 Rx Famotidine [Pepcid] 20 mg PO BID #0 tab 01/24/23 02/07/23 Rx lisinopriL [Zestril] 5 mg PO DAILY tab 01/24/23 02/07/23 Rx ALPRAZolam [Xanax] 0.25 mg PO Q8HR PRN 02/07/23 02/07/23 History Acetaminophen Tab [Tylenol] 650 mg PO Q6HR PRN 02/07/23 02/07/23 History Melatonin 3 mg PO HS PRN 02/07/23 02/07/23 History polyethylene glycoL 3350 [Miralax] 17 gm PO HS 02/07/23 02/07/23 History Allergies Allergy/AdvReac Type Severity Reaction Status Date / Time No Known Allergies Allergy Verified 02/07/23 13:11 Physical Exam Vitals: Vital Signs Temp Pulse Pulse Resp BP BP BP 02/10/23 07:39 98 F 60 16 169/85 02/10/23 07:34 98 F 60 16 169/85 179/76 Pulse Ox 02/10/23 07:39 98 02/10/23 07:34 98 Intake and Output 02/09/23 02/10/23 02/10/23 22:59 06:59 14:59 Intake Total 100 Balance 100 Intake: IV 100 Other: Weight 64.8 kg Results CBC & Chem 7: 02/10/23 07:00 02/10/23 07:00
[2023-02-10] MEDS ORDERED: PROPOFOL 10 MG/ML 20 ML VIAL IV ONE (10:29)
[2023-02-10] MEDS ORDERED: WATER FOR INJECTION, STERILE 10 ML VIAL IV ONE (10:29)
[2023-02-10] MEDS ORDERED: fentaNYL (PF) 50 MCG/ML 2 ML AMP ONE (10:29)
[2023-02-10] MEDS ORDERED: GLYCOPYRROLATE 0.2 MG/ML 2 ML VIAL ONE (10:29)
[2023-02-10] MEDS ORDERED: ePHEDrine 50 MG/ML 1 ML VIAL ONE (10:29)
[2023-02-10] MEDS ORDERED: MIDAZOLAM 2 MG/2 ML VIAL ONE (10:29)
[2023-02-10] MEDS ORDERED: SUCCINYLCHOLINE CHLORIDE 200 MG/10 ML VIAL IV ONE (10:29)
[2023-02-10] MEDS ORDERED: PHENYLEPHRINE-0.9% NACL SYG 1,000 MCG/10 ML SYRINGE ONE (10:29)
--- NOTE | 2023-02-10 11:49 | P.PN ---
Progress Note - Text Progress Note Date: 02/10/23 Multiple preoperative issues with difficulty in lines, finally a left femoral central line was initiated with ultrasound guidance by myself. He did have evidence of a right neck hematoma from previous attempts from other physicians. I did utilize an ultrasound and there did not appear to be evidence of active bleeding. Patient was brought back to the suite for planned intervention however patient unable to tolerate mild sedation due to continued movement therefore as previously planned, the patient was intubated. His blood pressures then subsequently dropped significantly low for a mild period of time then with medication support he had very high blood pressures. He continued to be significantly labile and with the lower side of blood pressures he he had evidence of ST depression on the heart monitor. Given the significant lability, EKG changes, the case was canceled. Long discussion was had with the , that at this point there is significantly high risk for stroke with alone cardiac issues therefore at this point we will continue with medical management. Discussion was had with the medicine team. The patient will be admitted for further workup and evaluation with hopes of stabilization. He is currently being awoken from anesthesia
--- NOTE | 2023-02-10 12:02 | P.HPIM ---
History of Present Illness H&P Date: 02/10/23 Patient is a 82-year-old male with history of recent ischemic CVA involving left parietal and occipital regions with persistent aphasia, left internal carotid artery stenosis, chronic indwelling Hancock catheter, history of poliomyelitis, hypertension presenting for trans-carotid artery revascularization of the left. Initially, [facility] [place] [facility] was consulted for perioperative evaluation. Patient did have difficulty getting central line, did end up getting a left femoral central line via ultrasound guidance by vascular surgery. Patient was unable to tolerate mild sedation, and was subsequently intubated. His blood pressure did drop significantly after intubation, and then was reportedly given phenylephrine which increases blood pressure substantially. Due to labile blood pressure, and noted ST depressions on tawer, case was canceled. Patient being admitted to medical ICU. Patient seen and examined at bedside prior to procedure. Physical exam prior to procedure Vital signs reviewed General: nontoxic, no distress, appears at stated age Derm: warm, dry Head: atraumatic, normocephalic, symmetric Eyes: EOMI, no lid lag, anicteric sclera, pupils equal round reactive to light ENT: Nose and ears atraumatic Neck: No thyromegaly, supple Mouth: no lip lesion, mucus membranes moist Cardiovascular: S1S2 reg, no murmur, no edema Lungs: clear to auscultation bilateral, no rhonchi, no rales, no wheeze, no accessory muscle use Abdominal: soft, nontender to palpation, no guarding, no appreciable organomegaly Ext: no gross muscle atrophy, muscle strength muscle strength 5 out of 5 in all 4 extremities, no contractures Neuro: Has expressive aphasia, and dysdiadochokinesia Psych: Alert, oriented, appropriate affect Assessment/Plan: Labile blood pressure following intubation ST depression noted on tawer Symptomatic left carotid artery stenosis Recent ischemic CVA involving left parietal and occipital regions Expressive aphasia Dysdiadochokinesia History of polymyositis Chronic indwelling Hancock catheter Hypertension -EKG ordered -Chest x-ray pending -Echocardiogram report reviewed 01/20 shows LVEF 55 percent, RVSP 33 -CBC shows normal WBC count of 8.4, hemoglobin 14.1, BMP shows sodium 137, creatinine is 1.09 -Troponin normal -Currently holding lisinopril -Continue the statin -Dual antiplatelet therapy per vascular surgery -Patient being admitted to medical ICU, notified ICU attending -We'll consider cardiology consult The patient is admitted with an anticipated greater than 2 midnight stay as inpatient status for evaluation of labile blood pressure following intubation. Surrogate decision-maker: CODE STATUS: Full code DVT prophylaxis: Subcu heparin Anticipated discharge date: Pending clinical course Anticipated discharge place: Pending clinical course A total of 65 minutes was spent on the care of this complex patient more than 50% of the time was spent in counseling and care coordination. Past Medical History Past Medical History: Hypertension, Prostate Disorder Additional Past Medical History / Comment(s): post polio syndrome- uses walker & wheelchair- requires assistance ., indwelling hancock catheter, hx uti's, bph, recent hospitalization 01/18/23 to 01/24/23 with CVA which affected speech, memory and some confusion., currently at [facility] for rehab since stroke. History of Any Multi-Drug Resistant Organisms: None Reported Past Surgical History: No Surgical Hx Reported Additional Past Surgical History / Comment(s): mole removed from back (2020). Past Anesthesia/Blood Transfusion Reactions: No Reported Reaction Past Psychological History: No Psychological Hx Reported Smoking Status: Never smoker Past Alcohol Use History: Rare Past Drug Use History: None Reported - Past Family History Mother Family Medical History: No Reported History Medications and Allergies Home Medications Medication Instructions Recorded Confirmed Type Aspirin 325 mg PO DAILY tab 01/24/23 02/07/23 Rx Atorvastatin [Lipitor] 40 mg PO HS #0 tab 01/24/23 02/07/23 Rx Clopidogrel [Plavix] 75 mg PO DAILY #0 tab 01/24/23 02/07/23 Rx Famotidine [Pepcid] 20 mg PO BID #0 tab 01/24/23 02/07/23 Rx lisinopriL [Zestril] 5 mg PO DAILY tab 01/24/23 02/07/23 Rx ALPRAZolam [Xanax] 0.25 mg PO Q8HR PRN 02/07/23 02/07/23 History Acetaminophen Tab [Tylenol] 650 mg PO Q6HR PRN 02/07/23 02/07/23 History Melatonin 3 mg PO HS PRN 02/07/23 02/07/23 History polyethylene glycoL 3350 [Miralax] 17 gm PO HS 02/07/23 02/07/23 History Allergies Allergy/AdvReac Type Severity Reaction Status Date / Time No Known Allergies Allergy Verified 02/07/23 13:11 Physical Exam Vitals: Vital Signs Temp Pulse Pulse Resp BP BP BP 02/10/23 07:39 98 F 60 16 169/85 02/10/23 07:34 98 F 60 16 169/85 179/76 Pulse Ox 02/10/23 07:39 98 02/10/23 07:34 98 Intake and Output 02/09/23 02/10/23 02/10/23 22:59 06:59 14:59 Intake Total 100 Balance 100 Intake: IV 100 Other: Weight 64.8 kg Results CBC & Chem 7: 02/10/23 07:00 02/10/23 07:00 Thrombosis Risk Factor Assmnt - Choose All That Apply Any of the Below Risk Factors Present?: Yes Each Factor Represents 1 point: Obesity (BMI >25) Each Risk Factor Represents 2 Points: Central venous access, Major surgery Each Risk Factor Represents 3 Points: Age 75 years or older Each Risk Factor Represents 5 Points: Stroke (< 1 month) Thrombosis Risk Factor Assessment Total Risk Factor Score: 13 Thrombosis Risk Factor Assessment Level: High Risk
[2023-02-10] MEDS ORDERED: IV FLUID CONTINUATION 250 ML IV ONE (12:05)
[2023-02-10] MEDS ORDERED: IV FLUID CONTINUATION 900 ML IV ONE (12:05)
--- NOTE | 2023-02-10 12:37 | XR ---
EXAMINATION TYPE: XR chest 1V portable DATE OF EXAM: 02/10/2023 CLINICAL HISTORY: Attempted central line placement. TECHNIQUE: Single AP portable upright view of the chest is obtained. COMPARISON: Chest x-ray from January 18, 2023 FINDINGS: Mild chronic parenchymal changes bilaterally with slightly elevated left hemidiaphragm is redemonstrated. No pneumothorax is seen bilaterally. Cardiac silhouette size is within normal limits currently. Osseous structures are intact. IMPRESSION: No pneumothorax is evident after attempted central line placement.
--- NOTE | 2023-02-10 15:08 | US ---
EXAMINATION TYPE: US thyroid st tissue head/neck DATE OF EXAM: 02/10/2023 Exam done portable COMPARISON: NONE CLINICAL INDICATION: Male, 82 years old with history of right neck hematoma; Right neck bruising foll owing recent attempt to place line in OR Right neck: no hematoma, fluid collection or neck mass seen at this time IMPRESSION: 1. No acute fluid collection to suggest hematoma.
[2023-02-10] MEDS ORDERED: polyethylene glycoL 3350 17 GM POWD.PACK PO SCH (21:00)
[2023-02-10] MEDS ORDERED: ATORVASTATIN 40 MG TAB PO SCH (21:00)
[2023-02-10] MEDS: FAMOTIDINE 20 MG TAB PO SCH (21:37)
[2023-02-11 05:16] VITALS: RESP 18
[2023-02-11 08:16] LABS: Basophils # (A) 0.1 k/uL (0-0.2); Basophils % (A) 1 %; Eosinophils # (A) 0.3 k/uL (0-0.7); Eosinophils % (A) 3 %; HCT 42.6 % (39.0-53.0); Lymphocytes # (A) 0.9 k/uL (1.0-4.8); Lymphocytes % (A) 8 %; MCH 32.6 pg (25.0-35.0); MCHC 32.8 g/dL (31.0-37.0); MCV 99.4 fL (80.0-100.0); Mean Platelet Volume 8.4; Monocytes # (A) 0.6 k/uL (0-1.0); Monocytes % (A) 5 %; Neutrophils # (A) 9.2 k/uL (1.3-7.7); Neutrophils % (A) 82 %; Platelet Count 270 k/uL (150-450); RBC 4.29 m/uL (4.30-5.90); RDW 12.6 % (11.5-15.5); WBC 11.2 k/uL (3.8-10.6)
[2023-02-11 08:26] LABS: African American GFR (CKD) >90 (>60 ml/min/1.73 sqM); Anion Gap 6 mmol/L; Blood Urea Nitrogen 13 mg/dL (9-20); Carbon Dioxide 30 mmol/L (22-30); Chloride 102 mmol/L (98-107); Glucose 128 mg/dL (74-99); Non-African American GFR(CKD) 81 (>60 ml/min/1.73 sqM); Potassium 3.9 mmol/L (3.5-5.1); Sodium 138 mmol/L (137-145)
[2023-02-11] MEDS: FAMOTIDINE 20 MG TAB PO SCH (08:32)
[2023-02-11] MEDS ORDERED: CLOPIDOGREL 75 MG TAB PO SCH (09:00)
[2023-02-11] MEDS ORDERED: ASPIRIN 325 MG TAB PO SCH (09:00)
[2023-02-11] MEDS ORDERED: lisinopriL 5 MG TAB PO SCH (09:00)
--- NOTE | 2023-02-11 09:01 | P.PN ---
Subjective Progress Note Date: 02/11/23 No significant changes overnight. Heart rate and blood pressure remained acceptable. Objective - Vital Signs Vital signs: Vital Signs Temp 98.2 F 02/11/23 08:36 Pulse 78 02/11/23 08:36 Resp 18 02/11/23 08:36 BP 156/80 02/11/23 08:36 Pulse Ox 99 02/11/23 08:36 FiO2 Intake & Output 02/10/23 02/11/23 02/11/23 18:59 06:59 18:59 Intake Total 400 240 Output Total 850 1400 Balance -450 -1400 240 Weight 64.8 kg Intake: IV 400 Oral 0 240 Output: Urine 850 1400 Other: Voiding Method Indwelling Catheter Indwelling Catheter - Exam Patient is awake alert. He demonstrates no focal deficits with cranial nerves II through XII are grossly intact and equal motor strength in the upper extremities documented. - Labs CBC & Chem 7: 02/11/23 08:07 02/11/23 08:07 Labs: Abnormal Lab Results - Last 24 Hours (Table) 02/11/23 02/11/23 Range/Units 08:07 08:07 WBC 11.2 H (3.8-10.6) k/uL RBC 4.29 L (4.30-5.90) m/uL Neutrophils # 9.2 H (1.3-7.7) k/uL Lymphocytes # 0.9 L (1.0-4.8) k/uL Glucose 128 H (74-99) mg/dL Assessment and Plan Assessment: Perioperative hypotension and tachycardia resulting in cancellation of proposed carotid intervention. Plan: Patient is surgically stable. Can be dismissed from the hospital once all other medical providers are in agreement. Plan for office follow-up with Dr. Bal as outpatient Time with Patient: Less than 30
[2023-02-11 11:24] VITALS: BP 154/76; PULSE 68; TEMP 98.1
--- NOTE | 2023-02-11 11:56 | P.DS ---
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 Initially, [facility] physicians was consulted for perioperative evaluation. Patient did have difficulty getting central line, did end up getting a left femoral central line via ultrasound guidance by vascular surgery. Patient was unable to tolerate mild sedation, and was subsequently intubated. His blood pressure did drop significantly after intubation, and then was reportedly given phenylephrine which increases blood pressure substantially. Due to labile blood pressure, and noted ST depressions on monitoring engineer, case was canceled. Patient was successfully extubated, now stable. No plan for further interventions during this hospitalization. Patient seen and examined at bedside. Vital signs reviewed and stable. General: nontoxic, no distress, appears at stated age Derm: warm, dry Head: atraumatic, normocephalic, symmetric Eyes: EOMI, no lid lag, anicteric sclera Mouth: no lip lesion, mucus membranes moist Cardiovascular: S1S2 reg, no murmur Lungs: CTA bilateral, no rhonchi, no rales , no accessory muscle use Abdominal: soft, nontender to palpation, no guarding, no appreciable organomegaly Ext: no gross muscle atrophy, no edema, no contractures Neuro: CN II-XI grossly intact, no focal neuro deficits Psych: Alert, oriented, appropriate affect A total of 36 minutes of time were spent preparing this complex discharge summary. Patient was discharged on at 11:34. Patient Condition at Discharge: Stable Plan - Discharge Summary Discharge Rx Participant: No New Discharge Prescriptions: Continue Atorvastatin [Lipitor] 40 mg PO HS #0 tab Famotidine [Pepcid] 20 mg PO BID #0 tab ALPRAZolam [Xanax] 0.25 mg PO Q8HR PRN PRN Reason: Anxiety Aspirin 325 mg PO DAILY tab Clopidogrel [Plavix] 75 mg PO DAILY #0 tab lisinopriL [Zestril] 5 mg PO DAILY tab Acetaminophen Tab [Tylenol] 650 mg PO Q6HR PRN PRN Reason: TEMP ABOVE 101 OR PAIN Melatonin 3 mg PO HS PRN PRN Reason: Insomnia polyethylene glycoL 3350 [Miralax] 17 gm PO HS Discharge Medication List Aspirin 325 mg PO DAILY tab 01/24/23 [Rx] Atorvastatin [Lipitor] 40 mg PO HS #0 tab 01/24/23 [Rx] Clopidogrel [Plavix] 75 mg PO DAILY #0 tab 01/24/23 [Rx] Famotidine [Pepcid] 20 mg PO BID #0 tab 01/24/23 [Rx] lisinopriL [Zestril] 5 mg PO DAILY tab 01/24/23 [Rx] ALPRAZolam [Xanax] 0.25 mg PO Q8HR PRN 02/07/23 [History] Acetaminophen Tab [Tylenol] 650 mg PO Q6HR PRN 02/07/23 [History] Melatonin 3 mg PO HS PRN 02/07/23 [History] polyethylene glycoL 3350 [Miralax] 17 gm PO HS 02/07/23 [History] Follow up Appointment(s)/Referral(s): Fide Bal DO [STAFF PHYSICIAN] - 1 Week Activity/Diet/Wound Care/Special Instructions: Please see vascular surgery in office. Discharge Disposition: TRANSFER TO SNF/ECF
== END 2023-02-11 13:30 | DRG 68 ==
LOC: 2ORMAIN 06:19 → 3SCARD 13:55
PROVIDERS: ADMIT Surgery; ATTEND Surgery
PROC: B54CZZA Ultrasonography of Left Lower Extremity Veins, Guidance (ICD-10-PCS; 2023-02-10)
PROC: 06HN33Z Insertion of Infusion Device into Left Femoral Vein, Percutaneous Approach (ICD-10-PCS; principal; 2023-02-10 09:00)
DX: I65.22 Occlusion and stenosis of left carotid artery (principal); I95.81 Postprocedural hypotension; R47.01 Aphasia; G14 Postpolio syndrome; Z53.09 Procedure and treatment not carried out because of other contraindication; I10 Essential (primary) hypertension; I69.311 Memory deficit following cerebral infarction; R00.0 Tachycardia, unspecified; I69.328 Other speech and language deficits following cerebral infarction; N40.0 Benign prostatic hyperplasia without lower urinary tract symptoms; Z79.02 Long term (current) use of antithrombotics/antiplatelets; Z79.82 Long term (current) use of aspirin; Z79.899 Other long term (current) drug therapy; Z87.440 Personal history of urinary (tract) infections; Z99.3 Dependence on wheelchair
CPT/HCPCS: 71045; 76536; 80048; 83735; 84484; 85025; 86850; 86900; 86901; 93005

== ENCOUNTER 2023-02-28 16:06 | Inpatient (IN) | payer MEDICARE ==
[2023-02-28] MEDS ORDERED: SODIUM CHLORIDE 0.9% 1,000 ML IV STA (16:12)
--- NOTE | 2023-02-28 16:14 | ED ---
Neuro HPI - General Stated Complaint: Fall, Possible Stroke Time Seen by Provider: 02/28/23 16:12 Source: patient, RN notes reviewed, old records reviewed, Caregiver Mode of arrival: EMS Limitations: altered mental status - History of Present Illness Is the patient presenting with stroke symptoms?: Yes -: hour(s) Initial Comments: This is an 82-year-old male to the emergency department for evaluation patient evaluation altered mental status significant weakness had a pretty to left side weakness right side altered mental status agreeable going to the toilet today he was unable to get up with once the ground hit his head and became combative minimal small head injury patient is on blood thinners, [place]. History of carotid stenosis. Patient is unable to give history secondary to inability to speak history. From EMS which is given to them by his Location: speech, left arm, right arm, left leg, altered History of same: No Place: home Severity: severe Quality: weak Improves With: none Worsens With: none On Anticoagulants: Yes (eliquis) Context: sudden onset Associated Symptoms: confusion, weakness Treatments Prior to Arrival: none - Related Data Home Medications: Home Medications Medication Instructions Recorded Confirmed Acetaminophen Tab [Tylenol] 650 mg PO Q6HR PRN 02/07/23 02/28/23 polyethylene glycoL 3350 [Miralax] 17 gm PO HS 02/07/23 02/28/23 Sulfamethox-Tmp 800-160Mg [Bactrim 1 tab PO Q12HR 02/28/23 02/28/23 DS 800-160 mg] Previous Rx's Medication Instructions Recorded Aspirin 325 mg PO DAILY tab 01/24/23 Atorvastatin [Lipitor] 40 mg PO HS #0 tab 01/24/23 Clopidogrel [Plavix] 75 mg PO DAILY #0 tab 01/24/23 Famotidine [Pepcid] 20 mg PO BID #0 tab 01/24/23 lisinopriL [Zestril] 5 mg PO DAILY tab 01/24/23 Allergies/Adverse Reactions: Allergies Allergy/AdvReac Type Severity Reaction Status Date / Time No Known Allergies Allergy Verified 02/28/23 18:06 Review of Systems ROS Statement: Those systems with pertinent positive or pertinent negative responses have been documented in the HPI. ROS Other: All systems not noted in ROS Statement are negative. General Exam - General Exam Comments Initial Comments: NIH of Inability to speak, inability to move left sided flaccid and paralyzed, right side leg minimal movement right abnormal [place] Unable to follow directions Limitations: no limitations General appearance: alert, in no apparent distress, anxious Head exam: Present: atraumatic, normal inspection. Absent: normocephalic (Minimal abrasion with punctate laceration to occiput) Eye exam: Present: normal appearance, PERRL, EOMI. Absent: scleral icterus, conjunctival injection, periorbital swelling ENT exam: Present: normal exam, mucous membranes moist Neck exam: Present: normal inspection. Absent: tenderness, meningismus, lymphadenopathy Respiratory exam: Present: normal lung sounds bilaterally. Absent: respiratory distress, wheezes, rales, rhonchi, stridor Cardiovascular Exam: Present: regular rate, normal rhythm, normal heart sounds. Absent: systolic murmur, diastolic murmur, rubs, gallop, clicks GI/Abdominal exam: Present: soft, normal bowel sounds. Absent: distended, tenderness, guarding, rebound, rigid Extremities exam: Present: normal inspection, full ROM, normal capillary refill. Absent: tenderness, pedal edema, joint swelling, calf tenderness Back exam: Present: normal inspection Neurological exam: Present: alert, oriented X3, CN II-XII intact Psychiatric exam: Present: normal affect, normal mood Skin exam: Present: warm, dry, intact, normal color. Absent: rash Stroke MDM - Lab Data Result diagrams: 02/28/23 16:15 02/28/23 16:15 Lab Results 02/28/23 02/28/23 02/28/23 Range/Units 16:15 16:15 16:15 WBC 7.1 (3.8-10.6) k/uL RBC 3.74 L (4.30-5.90) m/uL Hgb 11.7 L (13.0-17.5) gm/dL Hct 35.1 L (39.0-53.0) % MCV 93.9 D (80.0-100.0) fL MCH 31.4 (25.0-35.0) pg MCHC 33.5 (31.0-37.0) g/dL RDW 12.9 (11.5-15.5) % Plt Count 261 (150-450) k/uL MPV 8.2 Neutrophils % (Manual) 67 % Lymphocytes % (Manual) 19 % Monocytes % (Manual) 14 % Neutrophils # (Manual) 4.76 (1.3-7.7) k/uL Lymphocytes # (Manual) 1.35 (1.0-4.8) k/uL Monocytes # (Manual) 0.99 (0-1.0) k/uL Nucleated RBCs 0 (0-0) /100 WBC Manual Slide Review Performed Ovalocytes Present PT 10.6 (9.0-12.0) sec INR 1.0 (<1.2) APTT 22.8 (22.0-30.0) sec Sodium (137-145) mmol/L Potassium (3.5-5.1) mmol/L Chloride (98-107) mmol/L Carbon Dioxide (22-30) mmol/L Anion Gap mmol/L BUN (9-20) mg/dL Creatinine (0.66-1.25) mg/dL Est GFR (CKD-EPI)AfAm (>60 ml/min/1.73 sqM) Est GFR (CKD-EPI)NonAf (>60 ml/min/1.73 sqM) Glucose (74-99) mg/dL Calcium (8.4-10.2) mg/dL Total Bilirubin (0.2-1.3) mg/dL AST (17-59) U/L ALT (4-49) U/L Alkaline Phosphatase (38-126) U/L Creatine Kinase (55-170) U/L Troponin I (0.000-0.034) ng/mL Total Protein (6.3-8.2) g/dL Albumin (3.5-5.0) g/dL Urine Color Yellow Urine Appearance Clear (Clear) Urine pH 5.5 (5.0-8.0) Ur Specific [place] 1.017 (1.001-1.035) Urine Protein Negative (Negative) Urine Glucose (UA) Negative (Negative) Urine Ketones Negative (Negative) Urine Blood Negative (Negative) Urine Nitrite Negative (Negative) Urine Bilirubin Negative (Negative) Urine Urobilinogen <2.0 (<2.0) mg/dL Ur Leukocyte Esterase Moderate H (Negative) Urine RBC 2 (0-5) /hpf Urine WBC 6 H (0-5) /hpf Urine Mucus Rare H (None) /hpf Urine Opiates Screen Not Detected (NotDetected) Ur Oxycodone Screen Not Detected (NotDetected) Urine Methadone Screen Not Detected (NotDetected) Ur Propoxyphene Screen Not Detected (NotDetected) Ur Barbiturates Screen Not Detected (NotDetected) U Tricyclic Antidepress Not Detected (NotDetected) Ur Phencyclidine Scrn Not Detected (NotDetected) Ur Amphetamines Screen Not Detected (NotDetected) U Methamphetamines Scrn Not Detected (NotDetected) U Benzodiazepines Scrn Detected H (NotDetected) Urine Cocaine Screen Not Detected (NotDetected) U Marijuana (THC) Screen Not Detected (NotDetected) 02/28/23 02/28/23 Range/Units 16:15 16:15 WBC (3.8-10.6) k/uL RBC (4.30-5.90) m/uL Hgb (13.0-17.5) gm/dL Hct (39.0-53.0) % MCV (80.0-100.0) fL MCH (25.0-35.0) pg MCHC (31.0-37.0) g/dL RDW (11.5-15.5) % Plt Count (150-450) k/uL MPV Neutrophils % (Manual) % Lymphocytes % (Manual) % Monocytes % (Manual) % Neutrophils # (Manual) (1.3-7.7) k/uL Lymphocytes # (Manual) (1.0-4.8) k/uL Monocytes # (Manual) (0-1.0) k/uL Nucleated RBCs (0-0) /100 WBC Manual Slide Review Ovalocytes PT (9.0-12.0) sec INR (<1.2) APTT (22.0-30.0) sec Sodium 133 L (137-145) mmol/L Potassium 4.2 (3.5-5.1) mmol/L Chloride 102 (98-107) mmol/L Carbon Dioxide 21 L (22-30) mmol/L Anion Gap 10 mmol/L BUN 22 H (9-20) mg/dL Creatinine 1.09 (0.66-1.25) mg/dL Est GFR (CKD-EPI)AfAm 74 (>60 ml/min/1.73 sqM) Est GFR (CKD-EPI)NonAf 64 (>60 ml/min/1.73 sqM) Glucose 107 H (74-99) mg/dL Calcium 8.1 L (8.4-10.2) mg/dL Total Bilirubin 0.3 (0.2-1.3) mg/dL AST 23 (17-59) U/L ALT 21 (4-49) U/L Alkaline Phosphatase 66 (38-126) U/L Creatine Kinase 58 (55-170) U/L Troponin I 0.012 (0.000-0.034) ng/mL Total Protein 5.9 L (6.3-8.2) g/dL Albumin 3.3 L (3.5-5.0) g/dL Urine Color Urine Appearance (Clear) Urine pH (5.0-8.0) Ur Specific [place] (1.001-1.035) Urine Protein (Negative) Urine Glucose (UA) (Negative) Urine Ketones (Negative) Urine Blood (Negative) Urine Nitrite (Negative) Urine Bilirubin (Negative) Urine Urobilinogen (<2.0) mg/dL Ur Leukocyte Esterase (Negative) Urine RBC (0-5) /hpf Urine WBC (0-5) /hpf Urine Mucus (None) /hpf Urine Opiates Screen (NotDetected) Ur Oxycodone Screen (NotDetected) Urine Methadone Screen (NotDetected) Ur Propoxyphene Screen (NotDetected) Ur Barbiturates Screen (NotDetected) U Tricyclic Antidepress (NotDetected) Ur Phencyclidine Scrn (NotDetected) Ur Amphetamines Screen (NotDetected) U Methamphetamines Scrn (NotDetected) U Benzodiazepines Scrn (NotDetected) Urine Cocaine Screen (NotDetected) U Marijuana (THC) Screen (NotDetected) - NIH Stroke Scale 1a. Level of Consciousness: (2) not alert, rep stimuli 1b. LOC Questions: (2) answers no questions correctly 1c. LOC Commands: (2) performs no tasks correctly 2. Best Gaze: (0) normal 3. Visual: (0) no visual loss 4. Facial Palsy: (2) partial paralysis 5a. Motor Arm Left: (3) no gravity effort 5b. Motor Arm Right: (4) no movement 6a. Motor Leg Left: (3) no gravity effort 6b. Motor Leg Right: (3) no gravity effort 7. Limb Ataxia: (2) present 2 limbs 8. Sensory: (1) mild/moderate sensory loss 9. Best Language: (un) mute/global aphasia 10. Dysarthria: (1) mild/moderate dysarthria 11. 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 History of Any Multi-Drug Resistant Organisms: None Reported Past Surgical History: No Surgical Hx Reported Additional Past Surgical History / Comment(s): Mole removed from back (2020), attempted TCAR this admission without success and case was canceled related to complications. Past Anesthesia/Blood Transfusion Reactions: No Reported Reaction Additional Past Anesthesia/Blood Transfusion Reaction / Comment(s): Uncontrolled blood pressures with anesthesia and intubation during attempted TCAR today 02/10/23. Past Psychological History: No Psychological Hx Reported Smoking Status: Never smoker Past Alcohol Use History: Rare Past Drug Use History: None Reported - Past Family History Mother Family Medical History: Myocardial Infarction (MA) Father Family Medical History: Myocardial Infarction (MA) Course Vital Signs 02/28/23 02/28/23 02/28/23 16:08 16:39 16:45 Temperature 97 F L Pulse Rate 78 66 65 Respiratory 18 11 L 12 Rate Blood Pressure 138/83 131/85 O2 Sat by Pulse 99 97 Oximetry 02/28/23 02/28/23 02/28/23 17:00 17:15 17:30 Temperature Pulse Rate 70 73 64 Respiratory 12 16 18 Rate Blood Pressure 135/94 142/83 147/89 O2 Sat by Pulse 97 99 98 Oximetry 02/28/23 02/28/23 02/28/23 17:45 18:00 18:15 Temperature Pulse Rate 65 75 64 Respiratory 19 23 11 L Rate Blood Pressure 142/86 143/83 153/87 O2 Sat by Pulse 97 99 98 Oximetry - Reevaluation(s) Reevaluation #1: 02/28/23 16:24 Medical records reviewed 02/28/23 16:24 Code stroke paged on patient evaluation and arrival Spoke with neurology regarding code stroke No PE TPA given secondary to 1 status Reevaluation #2: 02/28/23 23:11 Family informed results and questions answered no change in symptoms here in the ER Reevaluation #3: 02/28/23 23:11 Patient continues to have no improvement unable to speak Reevaluation #4: 02/28/23 16:24 Was pt. sent in by a medical professional or institution? @ -no Did you speak to anyone other than the patient for history? @ -no Did you review nursing and triage notes? @ -agree Were old charts reviewed? @ -no Differential Diagnosis? @ -prior EKG interpreted by me (3pts min.)? @ -yes X-rays interpreted by me (1pt min.)? @ -yes CT interpreted by me (1pt min.)? @ -no U/S interpreted by me (1pt. min.)? @ -no What testing was considered but not performed? (CT, X-rays, U/S, labs)? Why? @ -no What meds were considered but not given? Why? @ -no Did you discuss the management of the patient with other professionals? @ -no Did you reconcile home meds? @ -no Was smoking cessation discussed for >3mins.? @ -no Was critical care preformed (if so, how long)? @ -no Were there social determinants of health that impacted care today? How? (Homelessness, low income, unemployed, alcoholism, drug addiction, transportation, low edu. Level, literacy, decrease access to med. care, fdc, rehab)? @ -no Was there de-escalation of care discussed even if they declined? (Discuss DNR or withdrawal of care, Hospice)? @ -no What co-morbidities impacted this encounter? (DM, HTN, Smoking, COPD, CAD, Cancer, CVA, Hep., AIDS, mental health diagnosis, sleep apnea, morbid obesity)? @ -none Was patient admitted / discharged? @ -dc Undiagnosed new problem with uncertain prognosis? @ -no Drug Therapy requiring intensive monitoring for toxicity (Heparin, Nitro, Insulin, Cardizem)? @ -no Were any procedures done? @ -no Diagnosis/symptom? @ -CVA Acute, or Chronic, or Acute on Chronic? @ -no Uncomplicated (without systemic symptoms) or Complicated (systemic symptoms)? @ -uncomplicated Side effects of treatment? @ -no Exacerbation, Progression, or Severe Exacerbation] @ -no Poses a threat to life or bodily function? @ -yes Reevaluation #5: 02/28/23 16:24 Differential Altered Mental Status: Hypoglycemia, DKA, hypercapnia, ETOH, overdose, CO poisoning, trauma, myxedema coma, HTN encephalopathy, infection, encephalitis, psychosis, intercranial hemorrhage, hepatic encephalopathy, meningitis, CVA, this is not meant to be an all-inclusive list Critical Care Time Critical Care Time: Yes Total Critical Care Time: 31 Disposition Clinical Impression: Altered mental status, Cerebrovascular accident (CVA), DNR no code (do not resuscitate), Urinary tract infection Disposition: ADMITTED IP TO THIS [facility] Condition: Serious Is patient prescribed a controlled substance at d/c from ED?: No Time of Disposition: 20:00
[2023-02-28 16:33] LABS: Partial Thromboplastin Time 22.8 sec (22.0-30.0); Prothrombin Time 10.6 sec (9.0-12.0)
[2023-02-28 16:35] LABS: Albumin 3.3 g/dL (3.5-5.0); Calcium 8.1 mg/dL (8.4-10.2); Potassium 4.2 mmol/L (3.5-5.1); Total Bilirubin 0.3 mg/dL (0.2-1.3); Total Protein 5.9 g/dL (6.3-8.2)
[2023-02-28 16:36] LABS: HCT 35.1 % (39.0-53.0); HGB 11.7 gm/dL (13.0-17.5); MCH 31.4 pg (25.0-35.0); MCHC 33.5 g/dL (31.0-37.0); MCV 93.9 fL (80.0-100.0); Mean Platelet Volume 8.2; Platelet Count 261 k/uL (150-450); RBC 3.74 m/uL (4.30-5.90); RDW 12.9 % (11.5-15.5); WBC 7.1 k/uL (3.8-10.6)
--- NOTE | 2023-02-28 16:42 | CT ---
EXAMINATION TYPE: CT brain cspine wo con CT DLP: 1505.7 mGycm, Automated exposure control for dose reduction was used. DATE OF EXAM: 02/28/2023 4:30 PM COMPARISON: CT brain 01/20/2023. CLINICAL INDICATION:Male, 82 years old with history of fall,cva; fall, ams, cva TECHNIQUE: Brain: Multiple axial CT images of the brain were obtained without IV contrast. Cspine: Axial CT images from the skull base to the inferior aspect of T2 we obtained without intraven ous contrast. Coronal and sagittal reformatted images were also reviewed. FINDINGS: Brain: Extra-axial spaces: No abnormal extra-axial fluid collections. Ventricular system: Dilatation in proportion to cerebral atrophy. Cerebral parenchyma: Cerebral atrophy. No acute intraparenchymal hemorrhage or mass effect. The knapp -white junction is well differentiated. Remote left posterior temporal and occipital lobe infarct. Sc attered hypoattenuating areas are seen within the white matter. Cerebellum: Volume loss. Mass effect: No evidence of midline shift. Intracranial vasculature: Atherosclerotic calcifications of the intracranial vessels. Soft tissues: Small right frontal scalp contusion. Calvarium/osseous structures: No depressed skull fracture. Paranasal sinuses and mastoid air cells: The mastoid air cells are clear. Mild mucosal thickening in the bilateral maxillary sinuses and ethmoid air cells. Visualized orbits: Orbital contents are intact. Cervical spine: Motion degraded. Fracture: None. Osseous structures: Multilevel degenerative disc disease changes with endplate spurring and disc oste ophyte complex's. Multilevel facet arthropathy. Vertebral alignment: Grade 1 anterolisthesis of C2 on C3 and C3 and C4 and C4 on C5, likely degenerat mayra. Facet fusion at C2-C3 on the left. Spinal canal/Neural Foramina: Disc osteophyte complexes at C3-C4, C4-C5, C5-C6, C6-C7 with at least m ild spinal canal stenosis. Broad-based disc bulge with at least mild central canal stenosis at C7-T1. Facet joint uncovertebral joint arthropathy scattered throughout the cervical spine with varying deg gilda of neural foraminal stenosis. Neck soft tissues: Prevertebral soft tissues are within normal limits. Other: The airway is patent. Pulmonary fibrotic changes demonstrated. Moderate atherosclerotic calcif ication of the bilateral carotid bulbs with left greater than right. IMPRESSION: 1. No acute intracranial process. 2. Nonspecific white matter changes, likely secondary to chronic small vessel ischemic disease. 3. Remote left posterior temporal and occipital lobe infarct. 4. Small right frontal scalp contusion. 5. No evidence of cervical spine fracture. 6. Moderate multilevel degenerative disc disease.
[2023-02-28 17:30] LABS: Lymphocytes # (M) 1.35 k/uL (1.0-4.8); Monocytes # (M) 0.99 k/uL (0-1.0); Neutrophils # (M) 4.76 k/uL (1.3-7.7); Neutrophils % (M) 67 %; Nucleated Red Blood Cells 0 /100 WBC (0-0); Total Cells Counted 100
[2023-02-28 17:32] LABS: Ovalocytes Present
--- NOTE | 2023-02-28 17:37 | XR ---
EXAMINATION TYPE: XR chest 1V DATE OF EXAM: 02/28/2023 COMPARISON: 02/10/2023 INDICATION: Altered mental status TECHNIQUE: Single frontal view of the chest is obtained. FINDINGS: The heart size is mildly prominent. The pulmonary vasculature is normal. The lungs are clear. IMPRESSION: 1. Mild cardiomegaly.
[2023-02-28 17:46] LABS: Appearance,Urine Clear (Clear); Bilirubin,Urine Negative (Negative); Blood,Urine Negative (Negative); Color,Urine Yellow; Glucose,Urine (UA) Negative (Negative); Ketones,Urine Negative (Negative); Leukocyte Esterase,Urine Moderate (Negative); Mucus,Urine Rare /hpf; Nitrite,Urine Negative (Negative); PH, Urine 5.5 (5.0-8.0); Protein,Urine Negative (Negative); RBC,Urine 2 /hpf (0-5); Specific Gravity,Urine 1.017 (1.001-1.035); Urobilinogen,Urine <2.0 mg/dL (<2.0); WBC,Urine 6 /hpf (0-5)
[2023-02-28 17:50] LABS: Amphetamine Screen,Urine Not Detected (NotDetected); Barbiturate Screen,Urine Not Detected (NotDetected); Benzodiazepines Screen,Urine Detected (NotDetected); Cocaine Screen,Urine Not Detected (NotDetected); Methadone Screen, Urine Not Detected (NotDetected); Opiate Screen,Urine Not Detected (NotDetected); Oxycodone Screen, Urine Not Detected (NotDetected); Phencyclidine Screen,Urine Not Detected (NotDetected); Tricyclic Antidepressant,Urine Not Detected (NotDetected); Urn Cannabinoid Scrn Not Detected (NotDetected)
--- NOTE | 2023-02-28 18:13 | CT ---
EXAMINATION TYPE: CT angio head neck DATE OF EXAM: 02/28/2023 HISTORY: ams, fall, cva COMPARISON: 01/20/2023 CT DLP: 456.8 mGycm. Automated Exposure Control for Dose Reduction was Utilized. TECHNIQUE: CTA scan of the neck is performed with IV Contrast, patient injected with 70cc mL of Isov ue 300, axial images are obtained, coronal and sagittal reformatted images are reviewed. Three-D jean nstructed images are created on an independent workstation and reviewed. Source images are reviewed. Exam is limited due to patient's mental status and uncooperative nature. Vertebral arteries are codom inant. Common carotid arteries bifurcate into internal and external carotid arteries. FINDINGS: Carotid/Vascular Structures: There is a common origin of the left common carotid artery and right sub clavian artery from the innominate. Marked vascular calcification is at the left carotid bifurcation. This contributes to moderate narrowing approximately 50% at the left internal carotid artery origin. There is occlusion of the left internal carotid artery just distal to the calcification. There appea r to be some previous residual flow on the comparison study which is not evident on the current exam. Mild atheromatous plaque at the right internal carotid artery origin. Right internal carotid artery is patent to the skull base. Vertebral arteries are patent to the skull base. Cervical of [place]: Vertebral basilar system appears normal. Posterior cerebral vasculature appears s mall on previous is better visualized on the right than the left and is asymmetric.. Internal carotid arteries bifurcate normally into A1 and M1 segments. A2 segments are normal. The small patent anteri or communicating artery is identified. Left Posterior communicating artery is patent. Right posterior communicating artery is not identified. Other: Extensive degenerative changes contributing to severe foraminal stenosis are noted spine degen erative disc changes are noted. IMPRESSION: 1. Occlusion of the left internal carotid artery just beyond the bifurcation. Previous minimal flow i s not identified. 2. Diminished flow within the left posterior cerebral vasculature. This could be due to shunting thro ugh the posterior communicating artery to the anterior nulato of [place]. NASCET criteria was used in interpretation of this exam?
[2023-02-28] MEDS: SODIUM CHLORIDE 0.9% 1,000 ML IV SCH (22:12)
[2023-02-28] MEDS: MORPHINE SULFATE 2 MG/ML SYRINGE IVP PRN (23:34)
--- NOTE | 2023-03-01 02:34 | P.HPIM ---
History of Present Illness H&P Date: 02/28/23 Chief Complaint: stroke like symptoms 82 year old male with left carotid stenosis , hypertension , history of stroke with aphasia he was recently admitted for left carotid endarterectomy, however, he did not tolerate the procedure due to sedation, and required intubation. he had a short hospital course, and was discharged home without having the procedure done patient unable to provide any meaningful history , family not present at this time. today he came in for evaluation due to significant weakness, and altered mental status , he went to the bathroom today and had a fall and hit his head. he immediately became combative after, had a laceration on his scalp, patient is on blood thinner eliquis . EMS notified and he was brought in. patient was described to be altered, combative, left sided weakness and right sided minimal movement does not follow commands. but he does track with his eyes. code strokeactivate in the ED, no tpa given Review of Systems ROS unobtainable: due to mental status Past Medical History Past Medical History: Hypertension, Prostate Disorder Additional Past Medical History / Comment(s): Post polio syndrome- uses walker & wheelchair- requires assistance, indwelling hancock catheter starting Dec 06, 2020, catheter last changed 01/18/23 in ER at [facility] and changed monthly; due to be changed 02/18/23hx UTI's since catheter insertion, BPH, recent hospitalization 01/18/23 to 01/24/23 with CVA which affected speech, memory and some confusion, currently at [facility] for rehab since stroke, left carotid artery stenosis found during his last admission December to January 2023. History of Any Multi-Drug Resistant Organisms: None Reported Past Surgical History: No Surgical Hx Reported Additional Past Surgical History / Comment(s): Mole removed from back (2020), attempted TCAR this admission without success and case was canceled related to complications. Past Anesthesia/Blood Transfusion Reactions: No Reported Reaction Additional Past Anesthesia/Blood Transfusion Reaction / Comment(s): Uncontrolled blood pressures with anesthesia and intubation during attempted TCAR today 02/10/23. Past Psychological History: No Psychological Hx Reported Smoking Status: Never smoker Past Alcohol Use History: Rare Past Drug Use History: None Reported - Past Family History Mother Family Medical History: Myocardial Infarction ([place]) Father Family Medical History: Myocardial Infarction (MS) Medications and Allergies Home Medications Medication Instructions Recorded Confirmed Type Aspirin 325 mg PO DAILY tab 01/24/23 02/28/23 Rx Atorvastatin [Lipitor] 40 mg PO HS #0 tab 01/24/23 02/28/23 Rx Clopidogrel [Plavix] 75 mg PO DAILY #0 tab 01/24/23 02/28/23 Rx Famotidine [Pepcid] 20 mg PO BID #0 tab 01/24/23 02/28/23 Rx lisinopriL [Zestril] 5 mg PO DAILY tab 01/24/23 02/28/23 Rx Acetaminophen Tab [Tylenol] 650 mg PO Q6HR PRN 02/07/23 02/28/23 History polyethylene glycoL 3350 [Miralax] 17 gm PO HS 02/07/23 02/28/23 History Sulfamethox-Tmp 800-160Mg [Bactrim 1 tab PO Q12HR 02/28/23 02/28/23 History DS 800-160 mg] Allergies Allergy/AdvReac Type Severity Reaction Status Date / Time No Known Allergies Allergy Verified 02/28/23 18:06 Physical Exam Vitals: Vital Signs Temp Pulse Pulse Resp BP BP Pulse Ox 02/28/23 23:40 97.8 F 81 18 150/84 98 02/28/23 21:45 97.9 F 67 18 151/84 97 02/28/23 18:15 64 11 L 153/87 98 02/28/23 18:00 75 23 143/83 99 02/28/23 17:45 65 19 142/86 97 02/28/23 17:30 64 18 147/89 98 02/28/23 17:15 73 16 142/83 99 02/28/23 17:00 70 12 135/94 97 02/28/23 16:45 65 12 131/85 97 02/28/23 16:39 66 11 L 02/28/23 16:08 97 F L 78 18 138/83 99 Intake and Output 02/28/23 02/28/23 03/01/23 14:59 22:59 06:59 Intake Total 20 Output Total 850 Balance -850 20 Intake: IV 20 Invasive Line 1 10 Invasive Line 2 10 Output: Urine 850 Other: Voiding Method Indwelling Catheter Weight 74.843 kg Constitutional: No acute distress,aphasia, does not follow commands, briefly tracks with his eyes. Eyes: Anicteric sclera , moist conjunctiva, Pupils equal round reactive to light ENMT: NC/ laceration over his scalp, small in size, 1 inch Oropharynx clear, no erythema, or exudates Neck: Supple, no masses, or JVD No carotid bruits No thyromegaly Lungs: Clear to auscultation Clear to percussion Normal respiratory effort, no accessory muscle use Cardiovascular: Heart regular in rate and rhythm, No murmurs, gallops, or rubs No peripheral edema Abdominal: Soft Nontender, no guarding, rebound or rigidity Abdomen moving with respiration Normoactive bowel sounds No hepatomegaly, No splenomegaly No palpable mass No abdominal wall hernia noted Skin: Normal temperature, tone, texture, turgor Extremities: No digital cyanosis No clubbing Pedal pulses intact and symmetrical Radial pulses intact and symmetrical No calf tenderness Psychiatric: aphasia, awake, tracks briefly with his eyes. Neuro does not follow any commands. becomes combative and thrashing when attempt to move his extremities. Results CBC & Chem 7: 02/28/23 16:15 02/28/23 16:15 Labs: Abnormal Lab Results - Last 24 Hours (Table) 02/28/23 02/28/23 02/28/23 Range/Units 16:15 16:15 16:15 RBC 3.74 L (4.30-5.90) m/uL Hgb 11.7 L (13.0-17.5) gm/dL Hct 35.1 L (39.0-53.0) % Sodium 133 L (137-145) mmol/L Carbon Dioxide 21 L (22-30) mmol/L BUN 22 H (9-20) mg/dL Glucose 107 H (74-99) mg/dL Calcium 8.1 L (8.4-10.2) mg/dL Total Protein 5.9 L (6.3-8.2) g/dL Albumin 3.3 L (3.5-5.0) g/dL Ur Leukocyte Esterase Moderate H (Negative) Urine WBC 6 H (0-5) /hpf Urine Mucus Rare H (None) /hpf U Benzodiazepines Scrn Detected H (NotDetected) Thrombosis Risk Factor Assmnt - Choose All That Apply Any of the Below Risk Factors Present?: No Other Risk Factors: Yes Each Risk Factor Represents 3 Points: Age 75 years or older Each Risk Factor Represents 5 Points: Stroke (< 1 month) Thrombosis Risk Factor Assessment Total Risk Factor Score: 8 Thrombosis Risk Factor Assessment Level: High Risk Assessment and Plan Assessment: 82 year old male with CVA and right sided weakness, left carotid stenosis , coming in for altered mental status and fall. 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
[2023-03-01] MEDS: SODIUM CHLORIDE 0.9% 1,000 ML IV SCH ×2 (06:29→18:22)
[2023-03-01] MEDS ORDERED: CLOPIDOGREL 75 MG TAB PO SCH (09:00)
[2023-03-01] MEDS: FAMOTIDINE 20 MG TAB PO SCH ×2 (09:10→21:44)
[2023-03-01] MEDS: ASPIRIN 300 MG SUPP RECTAL SCH (09:41)
--- NOTE | 2023-03-01 11:42 | P.CNNES ---
History of Present Illness Consult date: 03/01/23 Requesting physician: Lemuel Steiner Reason for Consult: cva History of Present Illness: This is an 82-year-old gentleman with history of stroke towards the end of December 2022 over the left parieto-occipital as well as temporal region without expressive aphasia, symptomatic left ICA, polio who presented emergency d [facility] because of right-sided weakness speech difficulty. Patient is known to our neurology service. Some of the history is obtained from the patient's was at bedside. According to the , patient had a left ICA stenosis that was seen on prior admission on 02/10/2021 patient followed up with a vascular surgery team for intervention over the left ICA which was on February 10 and and he was taken in for surgery but the patient's a blood pressure was on stable therefore the surgery was aborted. According to the she was doing the well upon discharge from rehab recently and he was at home for the last 1 week and was doing well was using as a walker at baseline. But then at 3:30 y esterday she noticed that the patient had sudden onset right-sided weakness speech difficulty and had trouble head trauma as a result of the right-sided weakness. He was taken aspirin 325 mg daily, Plavix 75 mg daily and Lipitor 40 mg daily. He was followed up with Dr. Chua as outpatient. I personally saw the patient during his previous admission in which she had a left parietal occipital temporal stroke with the expressive aphasia and he had the symptomatic left ICA and wheezing the patient last on 9 01/23/2023 and it was seen last by Dr. Bhagat. Please refer to our notes for further details. Some of the workup during this hospital visit consisted of: CT of the head is reported as no acute intracranial processes. Nonspecific white matter changes, likely secondary due to chronic small vessel ischemic disease. Remote left posterior temporal and occipital lobe infarct. Small rig ht frontal scalp contusion. No evidence of cervical spine fracture. Moderate multilevel degenerative disc disease. CT angiography of the head and neck is reported as occlusion of left internal carotid artery just beyond the bifurcation. Previous minimal flow is not identified. Diminished flow within the left posterior cerebral last culture. This could be due to shunting through the posterior communicating artery to the anterior [place]. Per the ED notes seems stay activator code stroke and they spoke with the stroke team since they did not speak to me personally and unsure who they spoke with but no IV tpa. I assume since patient had recent stroke within 3 month and risk outweigh the benefit. Please refer to their notes for further details. Review of Systems Review of systems Limited but the prone positive and negative as per HPI. Past Medical History Past Medical History: Hypertension, Prostate Disorder Additional Past Medical History / Comment(s): Post polio syndrome- uses walker & wheelchair- requires assistance, indwelling hancock catheter starting Dec 06, 2020, catheter last changed 01/18/23 in ER at [facility] and changed monthly; due to be changed 02/18/23hx UTI's since catheter insertion, BPH, recent hospitalization 01/18/23 to 01/24/23 with CVA which affected speech, memory and some confusion, currently at [facility] for rehab since stroke, left carotid artery stenosis found during his last admission December to January 2023. History of Any Multi-Drug Resistant Organisms: None Reported Past Surgical History: No Surgical Hx Reported Additional Past Surgical History / Comment(s): Mole removed from back (2020), attempted TCAR this admission without success and case was canceled related to complications. Past Anesthesia/Blood Transfusion Reactions: No Reported Reaction Additional Past Anesthesia/Blood Transfusion Reaction / Comment(s): Uncontrolled blood pressures with anesthesia and intubation during attempted TCAR today 02/10/23. Past Psychological History: No Psychological Hx Reported Smoking Status: Never smoker Past Alcohol Use History: Rare Past Drug Use History: None Reported - Past Family History Mother Family Medical History: Myocardial Infarction ([place]) Father Family Medical History: Myocardial Infarction ([place]) Medications and Allergies Home Medications Medication Instructions Recorded Confirmed Type Aspirin 325 mg PO DAILY tab 01/24/23 02/28/23 Rx Atorvastatin [Lipitor] 40 mg PO HS #0 tab 01/24/23 02/28/23 Rx Clopidogrel [Plavix] 75 mg PO DAILY #0 tab 01/24/23 02/28/23 Rx Famotidine [Pepcid] 20 mg PO BID #0 tab 01/24/23 02/28/23 Rx lisinopriL [Zestril] 5 mg PO DAILY tab 01/24/23 02/28/23 Rx Acetaminophen Tab [Tylenol] 650 mg PO Q6HR PRN 02/07/23 02/28/23 History polyethylene glycoL 3350 [Miralax] 17 gm PO HS 02/07/23 02/28/23 History Sulfamethox-Tmp 800-160Mg [Bactrim 1 tab PO Q12HR 02/28/23 02/28/23 History DS 800-160 mg] Allergies Allergy/AdvReac Type Severity Reaction Status Date / Time No Known Allergies Allergy Verified 02/28/23 18:06 Physical Examination - Vital Signs Vital Signs: Vital Signs Temp Pulse Pulse Resp BP BP Pulse Ox 03/01/23 09:08 98.5 F 63 18 121/67 99 03/01/23 09:06 98.5 F 63 18 121/67 100 03/01/23 03:30 98.1 F 72 18 155/79 98 02/28/23 23:40 97.8 F 81 18 150/84 98 02/28/23 21:45 97.9 F 67 18 151/84 97 02/28/23 18:15 64 11 L 153/87 98 02/28/23 18:00 75 23 143/83 99 02/28/23 17:45 65 19 142/86 97 02/28/23 17:30 64 18 147/89 98 02/28/23 17:15 73 16 142/83 99 02/28/23 17:00 70 12 135/94 97 02/28/23 16:45 65 12 131/85 97 02/28/23 16:39 66 11 L 02/28/23 16:08 97 F L 78 18 138/83 99 Intake and Output 02/28/23 03/01/23 03/01/23 22:59 06:59 14:59 Intake Total 20 20 Output Total 850 300 Balance -850 -280 20 Intake: IV 20 20 Invasive Line 1 10 10 Invasive Line 2 10 10 Output: Urine 850 300 Other: Voiding Method Indwelling Catheter Indwelling Catheter Weight 74.843 kg GENERAL: The patient is lying in bed and is not in acute distress. CHEST: The heart rate is regular rate rhythm. No murmurs to auscultation. LUNG: Clear to auscultation bilaterally no wheezing noted throughout. Not labored breathing. ABDOMEN/GI: Bowel sounds present in all 4 quadrants. No tenderness to palpation throughout. NEUROLOGICAL: Limited Higher mental function: The patient is awake. Is global aphasic and is mute. Not following commands. Neglecting right side. Cranial nerves: The pupils are round, equal and reactive. Visual dyer is unable to assess. Neglecting right visual. Right lower facial weakness. Is mute. Motor: The strength is hard to assess but is plegic over the right and left is moving sponatneously. Slight increase tone over the right. Normal tone over the left. Cerebellum: Unable to assess. Sensation: Unable to assess. Reflexes (right/left): 1+ throughout. Plantars is upgoing over the right and mute left. Results - Laboratory Findings CBC and BMP: 02/28/23 16:15 02/28/23 16:15 Abnormal Lab Findings: Abnormal Labs 02/28/23 02/28/23 02/28/23 16:15 16:15 16:15 RBC 3.74 L Hgb 11.7 L Hct 35.1 L Sodium 133 L Carbon Dioxide 21 L BUN 22 H Glucose 107 H Calcium 8.1 L Total Protein 5.9 L Albumin 3.3 L Ur Leukocyte Esterase Moderate H Urine WBC 6 H Urine Mucus Rare H U Benzodiazepines Scrn Detected H Assessment and Plan Assessment: This is an 82-year-old gentleman with had a recent stroke to his end of December 2022 and he had symptomatic left ICA. On 02/28/2023 around 3:30 PM he had sudden onset right-sided weakness with speech difficulty. 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 On 02/10/2023 patient was unstable for intervention of the left ICA (blood pressure is unstable prior to procedure) History of left parietaloccipital and temporal stroke at the end of December 2022 and the patient had expressive aphasia and per the that improved History of polio Plan: Patient is currently on suppository aspirin 300 mg daily since having difficulty swallowing. JOINT CLEANING MACHINE OPERATOR is consulted and if he is able to swallow then will resume the by mouth medication. I started the patient on Brilinta 90mg 1 tab bid since failed Plavix. I increased Lipitor from 40-80 mg daily at bedtime percentage prophylaxis I ordered MRI of the brain if he is unable to cooperate to get a repeat CT I ordered lipid panel and limited 2-D echo If patient unable to swallow the recommend an NG tube which is a temporary but I think likely he'll require a PEG tube Recommend permissive hypertension and that controlled blood pressure if it's more than 220/110 for 48 hours. Carotid duplex is ordered Vascular surgery team is consulted Continue urinary tract Cardiac monitoring PT, OT and JOINT CLEANING MACHINE OPERATOR are consulted Defer the rest of the medical management to primary team For DVT prophylaxis: Started on subq heparin 5000U every 12 hours. The plan is discussed with the patient's and detailed as well as the primary team Thank you consultation Time with Patient: Greater than 30
--- NOTE | 2023-03-01 12:01 | P.GSCN ---
History of Present Illness Consult date: 03/01/23 Reason for Consult: Carotid stenosis Requesting physician: Salomón Franco History of present illness: 82-year-old male with past medical history for CVA, left ICA stenosis, prostate disorder with chronic indwelling Hancock catheter with UTI, who recentlly had a stroke at the end of December of this year. At that time patient had presented with complaints of frequent falls, and expressive aphasia. He had an MRI show ing a large infarct of the left parieto-occipital lobe and posterior temporal lobe. He was seen by vascular surgery at that time with greater than 90% stenosis of the left carotid artery and followed up with Dr. Hancock outpatient. Patient's is at the bedside which history is being obtained from. He was scheduled for TCAR on 02/10/[address] Hancock however in preop they reportedly were unable to get IV access, then patient had a hypertensive and hypotensive episodes and procedure was aborted and canceled. It was discussed and agreed upon patient is a poor surgical candidate and will manage medically. According to the patient's he had gone to medical for rehabilitation came home about a week ago. He was able to walk with assistance and walker. He establish and has been following with Dr. Chua from neurology. Yesterday he was in the bathroom at the sink and stated that he had a blank stay her and then his right lower extremity gave out and she grabbed him and lowered him to the ground. He was unable to speak, had right-sided weakness, and patient also hit his head she believes on the toilet. She states prior to that he was able to speak and communicate with her as well as ambulate. He did have cognitive/memory impairments since his last stroke as well as unable to read or write. Patient currently is on only able to speak, he was agitated through the night and left extremity has a soft restraint. Right upper and lower extremity appears paralyzed at this time. Patient underwent CT brain and C-spine without contrast that reported no acute intracranial process. Nonspecific white matter changes, likely secondary to chronic small vessel ischemic disease. Remote left posterior temporal and occipital lobe infarct. Small right frontal scalp contusion. No evidence of cervical spine fracture, moderate multilevel degenerative disc disease. CT angiogram head and neck reports occlusion of left internal carotid artery just beyond the bifurcation. Previous minimal flow is not identified. Diminished flow within the left posterior cerebral vasculature. This could be due to shunting through the posterior communicating artery to the anterior [place] of T[place]. 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 for rehab since stroke, left carotid artery stenosis found during his last admission December to January 2023. History of Any Multi-Drug Resistant Organisms: None Reported Past Surgical History: No Surgical Hx Reported Additional Past Surgical History / Comment(s): Mole removed from back (2020), attempted TCAR this admission without success and case was canceled related to complications. Past Anesthesia/Blood Transfusion Reactions: No Reported Reaction Additional Past Anesthesia/Blood Transfusion Reaction / Comm: Uncontrolled blood pressures with anesthesia and intubation during attempted TCAR today 02/10/23. Past Psychological History: No Psychological Hx Reported Smoking Status: Never smoker Past Alcohol Use History: Rare Past Drug Use History: None Reported - Past Family History Mother Family Medical History: Myocardial Infarction (NH) Father Family Medical History: Myocardial Infarction (NH) Medications and Allergies Home Medications Medication Instructions Recorded Confirmed Type Aspirin 325 mg PO DAILY tab 01/24/23 02/28/23 Rx Atorvastatin [Lipitor] 40 mg PO HS #0 tab 01/24/23 02/28/23 Rx Clopidogrel [Plavix] 75 mg PO DAILY #0 tab 01/24/23 02/28/23 Rx Famotidine [Pepcid] 20 mg PO BID #0 tab 01/24/23 02/28/23 Rx lisinopriL [Zestril] 5 mg PO DAILY tab 01/24/23 02/28/23 Rx Acetaminophen Tab [Tylenol] 650 mg PO Q6HR PRN 02/07/23 02/28/23 History polyethylene glycoL 3350 [Miralax] 17 gm PO HS 02/07/23 02/28/23 History Sulfamethox-Tmp 800-160Mg [Bactrim 1 tab PO Q12HR 02/28/23 02/28/23 History DS 800-160 mg] Allergies Allergy/AdvReac Type Severity Reaction Status Date / Time No Known Allergies Allergy Verified 02/28/23 18:06 Surgical - Exam Vital Signs Temp Pulse Resp BP Pulse Ox 97 F L 78 18 138/83 99 02/28/23 16:08 02/28/23 16:08 02/28/23 16:08 02/28/23 16:02/28/23 16:08 General appearance: The patient is alert, unable to speak. HET: Head is normocephalic, multiple abrasions on top of head. Pupils are equal and reactive. Neck: Supple without lymphadenopathy. Trachea midline. No audible carotid bruit. Heart: Regular. Lungs: Equal expansion, normal respiratory effort. Abdomen: Soft, nontender, nondistended. Extremities: Normal skin color and turgor. No cyanosis, rash, ulceration, clubbing, or edema. Bilateral radial pulses. Neurological: Unable to speak. Does have good tone and range of motion of left upper and lower extremity. Is able to follow commands. Right sided paralysis upper and lower extremity. Results - Labs 02/28/23 16:15 02/28/23 16:15 Abnormal Lab Results - Last 24 Hours (Table) 02/28/23 02/28/23 02/28/23 Range/Units 16:15 16:15 16:15 RBC 3.74 L (4.30-5.90) m/uL Hgb 11.7 L (13.0-17.5) gm/dL Hct 35.1 L (39.0-53.0) % Sodium 133 L (137-145) mmol/L Carbon Dioxide 21 L (22-30) mmol/L BUN 22 H (9-20) mg/dL Glucose 107 H (74-99) mg/dL Calcium 8.1 L (8.4-10.2) mg/dL Total Protein 5.9 L (6.3-8.2) g/dL Albumin 3.3 L (3.5-5.0) g/dL Ur Leukocyte Esterase Moderate H (Negative) Urine WBC 6 H (0-5) /hpf Urine Mucus Rare H (None) /hpf U Benzodiazepines Scrn Detected H (NotDetected) Diabetes panel 02/28/23 Range/Units 16:15 Sodium 133 L (137-145) mmol/L Potassium 4.2 (3.5-5.1) mmol/L Chloride 102 (98-107) mmol/L Carbon Dioxide 21 L (22-30) mmol/L BUN 22 H (9-20) mg/dL Creatinine 1.09 (0.66-1.25) mg/dL Glucose 107 H (74-99) mg/dL Calcium 8.1 L (8.4-10.2) mg/dL AST 23 (17-59) U/L ALT 21 (4-49) U/L Alkaline Phosphatase 66 (38-126) U/L Total Protein 5.9 L (6.3-8.2) g/dL Albumin 3.3 L (3.5-5.0) g/dL Calcium panel 02/28/23 Range/Units 16:15 Calcium 8.1 L (8.4-10.2) mg/dL Albumin 3.3 L (3.5-5.0) g/dL Pituitary panel 02/28/23 Range/Units 16:15 Sodium 133 L (137-145) mmol/L Potassium 4.2 (3.5-5.1) mmol/L Chloride 102 (98-107) mmol/L Carbon Dioxide 21 L (22-30) mmol/L BUN 22 H (9-20) mg/dL Creatinine 1.09 (0.66-1.25) mg/dL Glucose 107 H (74-99) mg/dL Calcium 8.1 L (8.4-10.2) mg/dL Adrenal panel 02/28/23 Range/Units 16:15 Sodium 133 L (137-145) mmol/L Potassium 4.2 (3.5-5.1) mmol/L Chloride 102 (98-107) mmol/L Carbon Dioxide 21 L (22-30) mmol/L BUN 22 H (9-20) mg/dL Creatinine 1.09 (0.66-1.25) mg/dL Glucose 107 H (74-99) mg/dL Calcium 8.1 L (8.4-10.2) mg/dL Total Bilirubin 0.3 (0.2-1.3) mg/dL AST 23 (17-59) U/L ALT 21 (4-49) U/L Alkaline Phosphatase 66 (38-126) U/L Total Protein 5.9 L (6.3-8.2) g/dL Albumin 3.3 L (3.5-5.0) g/dL - Imaging Comments: Carotid duplex left ICA occlusion, right ICA patent less than 50% stenosis Assessment and Plan Assessment: 1. Acute stroke, manifested with aphasia and right-sided weakness/paralysis 2. Recent large infarct of the left parietal, occipital lobe and posterior temporal lobe 3. History of Left severe symptomatic ICA stenosis greater than 90% 4. Poor surgical candidate due to high risk for stroke from procedure as well as cardiac changes 5. Post polio syndrome Plan: 1. Continue symptomatic and supportive care 2. PT/OT/ST on consult 3. Carotid duplex ordered reporting left ICA occlusion. There is actually no indication for any vascular surgical intervention for left ICA stenosis due to occlusion. 4. Patient is poor surgical candidate for carotid surgery 5. Continue medical management 6. Await further recommendations from neurology Thank you for this consultation, we will continue to follow. The impression and plan of care has been dictated as directed. I performed a history and examination of this patient, discussed the same with the dictator. I agree with the dictator's note ,documented as a scribe. Any additional findings or plans will be noted.
[2023-03-01] MEDS: HEPARIN SODIUM,PORCINE/PF 5,000 UNIT/0.5 ML SYRINGE SQ SCH ×2 (12:05→21:45)
--- NOTE | 2023-03-01 12:08 | US ---
EXAMINATION TYPE: US carotid duplex BILAT DATE OF EXAM: 03/01/2023 COMPARISON: Carotid ultrasound 01/20/2023, CTA head and neck 02/28/2023 CLINICAL INDICATION: Male, 82 years old with history of cva; stroke limited exam due to patient madeline felix. TECHNIQUE: Carotid duplex ultrasound examination. Indirect Doppler criteria was utilized. FINDINGS: EXAM MEASUREMENTS: RIGHT: Peak Systolic Velocity (PSV) cm/sec ----- Right CCA: 95.8 ----- Right ICA: 87.1 ----- Right ECA: Not well visualized ICA/CCA ratio: 0.9 RIGHT: End Diastole cm/sec ----- Right CCA: 17.3 ----- Right ICA: 15.9 ----- Right ECA: Not well visualized. LEFT: Peak Systolic Velocity (PSV) cm/sec ----- Left CCA: 49.3 ----- Left ICA: occluded ----- Left ECA: Not dopplered ICA/CCA ratio: LEFT: End Diastole cm/sec ----- Left CCA: 10 ----- Left ICA: occluded ----- Left ECA: Not dopplered VERTEBRALS (direction of flow): Right Vertebral: Antegrade Left Vertebral: Antegrade FINISHING RANGE SUPERVISOR NOTES: Left ICA total occlusion. IMPRESSION: 1. Mild atherosclerotic plaque within the right carotid bulb. No evidence for hemodynamically signif icant stenosis of the right internal carotid artery origin. 2. Occlusion of the left internal carotid artery just past bifurcation corresponds to yesterday's CT A head and neck. Criteria for Assigning % of Stenosis / Diameter reduction (Estimation based on the indirect measurements of the internal carotid artery velocities (ICA PSV). 1. Normal (no stenosis)=ICA PSV < 125 cm/s: ratio < 2.0: ICA EDV<40 cm/s. 2. Less than 50% stenosis=ICA PSV < 125 cm/s: ratio < 2.0: ICA EDV<40 cm/s. 3. 50 to 69% stenosis=ICA PSV of 125 to 230 cm/s: ration 2.0 ? 4.0: ICA EDV 40-100 cm/s. 4. Greater than 70% stenosis to near occlusion= ICA PSV > 230 cm/s: ratio > 4.0: ICA EDV > 100 cm/s. 5. Near occlusion= ICA PSV velocities may be low or undetectable: variable ratio and ICA EDV. 6. Total occlusion=unable to detect flow.
--- NOTE | 2023-03-01 14:20 | CA ---
Transthoracic Echo Report Name: Norman Taveras Age: 82 Gender: M : 1940 Exam Date: 03/01/2023 13:24 Exam Location: [facility] Ht (in): 70 Wt (lb): 165 Ordering Physician: Wes Pickett MD Attending/Referring Phys: Sound Effects Person Faby Andrade RDCS Procedure CPT: Indications: stroke. limited Cardiac Hx: limited study Technical Quality: Good Contrast 1: Total Dose (mL): Contrast 2: Total Dose (mL): MEASUREMENTS (Male / Female) Normal Values 2D ECHO LV Diastolic Volume MOD 4C 93.4 cm??? LV Systolic Volume MOD 4C 48.5 cm??? LV Ejection Fraction MOD 4C 48.0 % LV Diastolic Length 4C 8.8 cm LV Systolic Length 4C 7.4 cm LV Diastolic Volume MOD 2C 116.5 cm??? LV Systolic Volume MOD 2C 62.5 cm??? LV Ejection Fraction MOD 2C 46.3 % LV Diastolic Length 2C 9.4 cm LV Systolic Length 2C 8.0 cm DOPPLER TR Peak Velocity 247.2 cm/s TR Peak Gradient 24.4 mmHg Right Ventricular Systolic Press 28.2 mmHg FINDINGS Left Ventricle Left ventricular ejection fraction is estimated at 50-55 %. Normal left ventricular wall motion. Right Ventricle Right Atrium Left Atrium Mitral Valve Structurally normal mitral valve. Trace mitral regurgitation. Aortic Valve Trace aortic regurgitation. Tricuspid Valve Structurally normal tricuspid valve. Mild tricuspid regurgitation. Pulmonic Valve Pulmonic valve not well visualized. Pericardium Normal pericardium. No pericardial effusion. Aorta CONCLUSIONS Limited 2-D echo Left ventricular ejection fraction 50-55% Trace mitral regurgitation Trace aortic regurgitation No pericardial effusion Previewed by: Dr. Jamie Au DO (Electronically Signed) Final Date: 01 Mar 2023 14:19
--- NOTE | 2023-03-01 15:30 | P.PN ---
Subjective Progress Note Date: 03/01/23 Patient is an 82-year-old male with post polio syndrome requiring chronic indwelling Bal catheter who was brought in to the emergency department for altered mentation, right sided weakness and slurred speech. Was recently admitted from 01/18 to 01/24 for altered mentation. He was treated for a UTI and underwent stroke workup. He underwent MRI of the brain which showed an acute to subacute infarct. He was seen by neurology. He was placed on aspirin, Plavix, and Lipitor. He underwent carotid artery evaluation which revealed significant stenosis in the left internal carotid artery. Vascular surgery was consulted and patient will need carotid intervention, however will need to follow-up as outpatient. Subsequently he got discharge to SNF and recently got discharged from SNF. EMS was called at 3:30PM after patient had right sided weakness and slurred speech while in the washroom. He was lowered to the floor but may have hit his head. Of note, he was scheduled for TCAR on 02/10/[address] Bal however in preop they reportedly were unable to get IV access, then patient had a hypertensive /hypotensive episodes and procedure was aborted. Patient was seen and examined. No acute events overnight. Patient has significant right-sided neglect. He also failed his swallow evaluation today. He is unable to voice his concerns. He appears agitated. Case was discussed with his and Dr. Pickett at bedside. General: non toxic, mild distress, appears at stated age Derm: warm, dry Head: atraumatic, normocephalic, symmetric Eyes: no lid lag, anicteric sclera Cardiovascular: S1S2 reg, no murmur Lungs: CTA bilateral, no rhonchi, no rales , no accessory muscle use Ext: no gross muscle atrophy, no edema, no contractures Neuro: RU and RLE paraplegia. Right sided neglect. Unable to follow commands. Psych: Unable to follow commands. Acute ischemic stroke Symptomatic left ICA stenosis Normocytic anemia Hyponatremia with elevated BUN likely due to dehydration Possible UTI in the setting of chronic indwelling Abl catheter Based on my assessment of this patient, this patient meets a high complexity level of care. Patient has an acute diagnosis of ischemic stroke that poses a threat to life or bodily function. He has a history of L ICA stenosis of 90%. This is a significant stroke as patient has failed his swallow evaluation with profound right upper and right lower extremity weakness along with inability to speak and agitation. Urinalysis shows moderate leukocyte esterase for which she'll be started on Rocephin 2 g IV daily. Urine culture will be followed. He is to continue aspirin 300 mg rectally daily, Ticagrelor 90 mg by mouth twice a day and Lipitor 80 mg by mouth at bedtime. Advance neuro checks as ordered along with telemetry monitoring. PT, OT and speech therapy is consulted. Vascular surgery on board with regard to his critical stenosis in the left ICA. His is the decision maker. Patient is no code. I have reviewed the following clinical program consultant notes: Vascular surgery note 03/01, patient is poor surgical candidate for carotid surgery, continue medical management I have reviewed the results of the following tests: Echo shows EF 50-55%. Carotid doppler shows occlusion of the left ICA. I have ordered the following tests: MRI brain is ordered. I have discussed the care of this patient with the following independent h istorian: Case was discussed with the at bedside. I have independently interpreted the following test below: No. I have discussed the management of this patient with the following physician: The case was discussed with Dr. Pickett, switch Plavix to Brilinta when patient is able to swallow. Objective - Vital Signs Vital signs: Vital Signs Temp 98.5 F 03/01/23 09:08 Pulse 57 L 03/01/23 11:26 Resp 18 03/01/23 11:26 BP 157/74 03/01/23 11:26 Pulse Ox 98 03/01/23 11:26 FiO2 Intake & Output 02/28/23 03/01/23 03/01/23 18:59 06:59 18:59 Intake Total 20 20 Output Total 1150 850 Balance -1130 -830 Weight 74.843 kg 74.843 kg Intake: IV 20 20 Invasive Line 1 10 10 Invasive Line 2 10 10 Output: Urine 1150 850 Other: Voiding Method Indwelling Catheter Indwelling Catheter - Labs CBC & Chem 7: 02/28/23 16:15 02/28/23 16:15 Labs: Abnormal Lab Results - Last 24 Hours (Table) 02/28/23 02/28/23 02/28/23 Range/Units 16:15 16:15 16:15 RBC 3.74 L (4.30-5.90) m/uL Hgb 11.7 L (13.0-17.5) gm/dL Hct 35.1 L (39.0-53.0) % Sodium 133 L (137-145) mmol/L Carbon Dioxide 21 L (22-30) mmol/L BUN 22 H (9-20) mg/dL Glucose 107 H (74-99) mg/dL Calcium 8.1 L (8.4-10.2) mg/dL Total Protein 5.9 L (6.3-8.2) g/dL Albumin 3.3 L (3.5-5.0) g/dL Ur Leukocyte Esterase Moderate H (Negative) Urine WBC 6 H (0-5) /hpf Urine Mucus Rare H (None) /hpf U Benzodiazepines Scrn Detected H (NotDetected)
[2023-03-01 16:04] LABS: Chol/HDL Ratio 2.08 Ratio; VLDL Calculation 14.04 mg/dL (5.00-40.00)
[2023-03-01] MEDS ORDERED: ATORVASTATIN 40 MG TAB PO SCH (21:00)
[2023-03-01] MEDS: ATORVASTATIN 80 MG TAB PO SCH (21:44)
[2023-03-01] MEDS: TICAGRELOR 90 MG TAB PO SCH (21:45)
[2023-03-02] MEDS: SODIUM CHLORIDE 0.9% 1,000 ML IV SCH ×3 (04:17→20:18)
[2023-03-02] MEDS: HEPARIN SODIUM,PORCINE/PF 5,000 UNIT/0.5 ML SYRINGE SQ SCH ×2 (09:12→20:17)
[2023-03-02] MEDS: FAMOTIDINE 20 MG TAB PO SCH ×2 (09:21→20:17)
[2023-03-02] MEDS: TICAGRELOR 90 MG TAB PO SCH ×2 (09:21→20:17)
[2023-03-02] MEDS: ASPIRIN 300 MG SUPP RECTAL SCH (09:21)
--- NOTE | 2023-03-02 12:32 | CDI ---
Documentation Clarification Form Date: 03/02/2023 12:20:22 PM From: Maryam Reed Phone: [phone] Admit Date: 02/28/2023 8:21:00 PM Patient Name: Norman Taveras Visit Number: [id number] Discharge Date: ATTENTION: The Clinical Documentation Specialists (CDI) and [facility] Coding Staff appreciate your assistance in clarifying documentation. Please respond to the clarification below the line at the bottom and electronically sign. The CDI & [facility] Coding staff will review the response and follow-up if needed. Please note: Queries are made part of the Legal Health Record. If you have any questions, please contact the author of this message via ITS. Dr. Salomón Franco Possible UTI is in the setting of chronic indwelling Bal catheter, 03/01, Medicine progress note. Additional clarification regarding this diagnosis is requested. History/Risk Factors: 82-year-old male presents to the ED with altered mental status, right sided weakness and slurred speech. Medical History: Post-polio syndrome, HTN, Prostate disorder, Indwelling Bal Catheter, BPH and CVA. Clinical Indicators: Vital Signs: B/P 138/83; HR 78; Temp 97.0 F Oral; RR 18; SpO2 99% room air WBC: 02/28 7.1 Urinalysis: 02/28 Leukocyte Esterase Moderate; RBC 2; WBC 6, Mucus rare Treatment: 0.9NS 1L bolus x 1 Antibiotics: 02/28 Ceftriaxone IVPB x 1; 03/01 Ceftriaxone IVPB Q24H Please clarify if there is an additional diagnosis associated with the UTI: [ ] UTI secondary to chronic indwelling Bal catheter [ ] Other, please specify [ ] Unable to determine UTI RULED OUT 03/[address] Cook (Template Last Revised: December 2020) MTDD
[2023-03-02] MEDS ORDERED: predniSONE 50 MG TAB PO SCH (12:45)
--- NOTE | 2023-03-02 12:58 | CDI ---
Documentation Clarification Form Date: 03/02/2023 12:33:05 PM From: Maryam Reed RN CCDS Phone: [phone] Admit Date: 02/28/2023 8:21:00 PM Patient Name: Norman Taveras Visit Number: [id number] Discharge Date: ATTENTION: The Clinical Documentation Specialists (CDI) and [facility] Coding Staff appreciate your assistance in clarifying documentation. Please respond to the clarification below the line at the bottom and electronically sign. The CDI & [facility] Coding staff will review the response and follow-up if needed. Please note: Queries are made part of the Legal Health Record. If you have any questions, please contact the author of this message via ITS. Dr. Cook Your patient has the documented symptom of Altered Mental Status 51/0, Medicine note. Additional clarification regarding the etiology/cause of this symptom is requested. History/Risk Factors: 82-year-old male presents to the ED with altered mental status, right sided weakness and slurred speech. Medical History: Post-polio syndrome, HTN, Prostate disorder, Indwelling Bal Catheter, BPH and CVA. Clinical Indicators: Labs: 02/28 Wbc 7.1; Rbc 3.74; Hgb 11.7; MCV 35.1; NA 133; Carbon dioxide 21; BUN 22; Glucose 107; Calcium 8.1 Total protein 5.9; Albumin 3.3 UA Leukocyte Esterase Moderate, Wbc 6, Mucus rare. Toxicology: Benzodiazepines detected CT Brain:02/28 Remote left posterior temporal and occipital lobe infarct Treatment: 02/28 Neuro checks; 0.9NS 1L IV Bolus, Ceftriaxone IVPB x1; 03/01 Ceftriaxone IVPB Q24H; Plavix PO Daily; Lipitor PO BID; Brilinta. Please clarify the etiology of the symptom of Altered Mental Status: [ ] Metabolic Encephalopathy due to Benzodiazepines [ X ] Metabolic Encephalopathy due to Stroke [ ] Metabolic Encephalopathy please specify [ ] Other condition (please specify) [ ] Unable to determine (Template Last Revised: November 2020) MTDD
[2023-03-02] MEDS ORDERED: LORazepam 2 MG/ML INJ IV ONE (15:00)
--- NOTE | 2023-03-02 15:18 | P.PN ---
Subjective Progress Note Date: 03/02/23 The patient is seen at bedside and he is accompanied by his . states that the he's doing somewhat better today compared to yesterday. She stated now he is able to swallow food and he is on modified diet. feels he is responding to her. She feels he is following some commands. Objective - Vital Signs Vital signs: Vital Signs Temp 98.6 F 03/02/23 09:11 Pulse 58 L 03/02/23 11:41 Resp 17 03/02/23 11:41 BP 174/72 03/02/23 11:41 Pulse Ox 98 03/02/23 11:41 FiO2 Intake & Output 03/01/23 03/02/23 03/02/23 18:59 06:59 18:59 Intake Total 20 20 Output Total 850 800 400 Balance -830 -780 -400 Intake: IV 20 20 Invasive Line 1 10 10 Invasive Line 2 10 10 Output: Urine 850 800 400 Other: Voiding Method Indwelling Catheter Indwelling Catheter Indwelling Catheter # Bowel Movements 1 - Exam GENERAL: The patient is lying in bed and is not in acute distress. NEUROLOGICAL: Limited Higher mental function: The patient is awake. Is global aphasic and is mute. Not following commands. Neglecting right side. Cranial nerves: Visual dyer is unable to assess. Neglecting right visual. Right lower facial weakness. Is mute. Motor: The strength is hard to assess but is plegic over the right and left is moving sponatneously. Slight increase tone over the right. Normal tone over the left. Cerebellum: Unable to assess. Sensation: Unable to assess. Reflexes (right/left): 1+ throughout. Plantars is upgoing over the right and mute left. Some of the workup during this hospital visit consisted of: Lipid panel is a triglyceride of 70, cholesterol is 85, LDLs 30 and HDL is 40. CT of the head is reported as no acute intracranial processes. Nonspecific white matter changes, likely secondary due to chronic small vessel ischemic disease. Remote left posterior temporal and occipital lobe infarct. Small right frontal scalp contusion. No evidence of cervical spine fracture. Moderate multilevel degenerative disc disease. CT angiography of the head and neck is reported as occlusion of left internal carotid artery just beyond the bifurcation. Previous minimal flow is not identified. Diminished flow within the left posterior cerebral last culture. This could be due to shunting through the posterior communicating artery to the anterior tolowa dee-ni' of [place]. Limited 2-D echo is ejection fraction of 50-55%. Trace mitral and aortic regurgitation. Carotid duplex is reported as mild PLAQUE WITHIN THE RIGHT CAROTID BULB. NO EVIDENCE OF HEMODYNAMICALLY SIGNIFICANT STENOSIS OF THE RIGHT INTERNAL CAROTID ARTERY ORIGIN. OCCLUSION OF THE LEFT INTERNAL CAROTID ARTERY JUST PAST BIFURCATION CORRESPONDS TO YESTERDAY CTA HEAD AND NECK. - Labs CBC & Chem 7: 02/28/23 16:15 02/28/23 16:15 Assessment and Plan Assessment: This is an 82-year-old gentleman with had a recent stroke to his end of December 2022 and he had symptomatic left ICA. On 02/28/2023 around 3:30 PM he had sudden onset right-sided weakness with speech difficulty. 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 In past had left ICA stenosis 90% and On 02/10/2023 patient was unstable for intervention of the left ICA (blood pressure is unstable prior to procedure) History of left parietaloccipital and temporal stroke at the end of December 2022 and the patient had expressive aphasia and per the that improved History of polio Plan: Patient is currently on suppository aspirin 300 mg daily since having difficulty swallowing but if continues to improve will change to 81mg daily. Started on Brilinta 90mg 1 tab bid since failed Plavix. Continue Lipitor 80 mg daily at bedtime for secondary stroke prophylaxis Pending MRI of the brain, and if he is unable to cooperate then will obtain a repeat CT head. Continue NG or PEG tube if continues to have dysphagia or not receiving enough nutrition. Recommend permissive hypertension and that controlled blood pressure if it's more than 220/110 for today then starting tomorrow start slow controlling the blood pressure. Vascular surgery team is consulted Continue neuro checks. Cardiac monitoring PT, OT and MANAGER GROUP are consulted Defer the rest of the medical management to primary team For DVT prophylaxis: On subq heparin 5000U every 12 hours. The plan is discussed with the patient's and detailed as well as the primary team. Time with Patient: Less than 30
--- NOTE | 2023-03-02 15:24 | P.PN ---
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 Was recently admitted from 01/18 to 01/24 for altered mentation. He was treated for a UTI and underwent stroke workup. He underwent MRI of the brain which showed an acute to subacute infarct. He was seen by neurology. He was placed on aspirin, Plavix, and Lipitor. He underwent carotid artery evaluation which revealed significant stenosis in the left internal carotid artery. Vascular surgery was consulted and patient will need carotid intervention, however will need to follow-up as outpatient. Subsequently he got discharge to SNF and recently got discharged from SNF. EMS was called at 3:30PM after patient had right sided weakness and slurred speech while in the washroom. He was lowered to the floor but may have hit his head. Of note, he was scheduled for TCAR on 02/10/[address] Bal however in preop they reportedly were unable to get IV access, then patient had a hypertensive /hypotensive episodes and procedure was aborted. 03/01 Patient was seen and examined. No acute events overnight. Patient has significant right-sided neglect. He also failed his swallow evaluation today. He is unable to voice his concerns. He appears agitated. Case was discussed with his and Dr. Pickett at bedside. 03/02 Patient was seen and examined. Discussed with pathology, he has been advanced to NDD 1 pureed diet. reports less agitation. He is able to follow basic commands. General: non toxic, mild distress, appears at stated age Derm: warm, dry Head: atraumatic, normocephalic, symmetric Eyes: no lid lag, anicteric sclera Cardiovascular: S1S2 reg, no murmur Lungs: CTA bilateral, no rhonchi, no rales , no accessory muscle use Ext: no gross muscle atrophy, no edema, no contractures Neuro: RU and RLE paraplegia. Right sided neglect. Unable to follow commands. Psych: Unable to follow commands. Acute ischemic stroke Symptomatic left ICA stenosis Normocytic anemia Hyponatremia with elevated BUN likely due to dehydration Possible UTI in the setting of chronic indwelling Bal catheter Based on my assessment of this patient, this patient meets a high complexity level of care. Patient has an acute diagnosis of ischemic stroke that poses a threat to life or bodily function. He has a history of L ICA stenosis of 90%. This is a significant stroke as patient has failed his swallow evaluation with profound right upper and right lower extremity weakness along with inability to speak and agitation. Urinalysis shows moderate leukocyte esterase for which she'll be started on Rocephin 2 g IV daily. Urine culture will be followed. He is to continue aspirin 300 mg rectally daily, Ticagrelor 90 mg by mouth twice a day and Lipitor 80 mg by mouth at bedtime. Advance neuro checks as ordered along with telemetry monitoring. PT, OT and speech therapy is consulted. Vascular surgery on board with regard to his critical stenosis in the left ICA. His is the decision maker. Patient is no code. I have reviewed the following customer service consultant notes: Neurology note 03/02, recommend permissive hypertension. I have reviewed the results of the following tests: Lipid panel is within normal limits. I have ordered the following tests: CT brain is ordered as patient can not tolerate MRI brain. I have discussed the care of this patient with the following independent historian: Case was discussed with the at bedside. I have independently interpreted the following test below: No. I have discussed the management of this patient with the following physician: The case was discussed with Dr. Pickett, switch Plavix to Brilinta when patient is able to swallow. Patient is poor prognosis. Objective - Vital Signs Vital signs: Vital Signs Temp 98.6 F 03/02/23 09:11 Pulse 58 L 03/02/23 11:41 Resp 17 03/02/23 11:41 BP 174/72 03/02/23 11:41 Pulse Ox 98 03/02/23 11:41 FiO2 Intake & Output 03/01/23 03/02/23 03/02/23 18:59 06:59 18:59 Intake Total 20 20 Output Total 850 800 400 Balance -830 780 -400 Intake: IV 20 20 Invasive Line 1 10 10 Invasive Line 2 10 10 Output: Urine 850 800 400 Other: Voiding Method Indwelling Catheter Indwelling Catheter Indwelling Catheter # Bowel Movements 1 - Labs CBC & Chem 7: 02/28/23 16:15 02/28/23 16:15
--- NOTE | 2023-03-02 16:30 | CT ---
EXAMINATION TYPE: CT brain wo con DATE OF EXAM: 03/02/2023 HISTORY: Altered mental status. CT DLP: 1222.4 mGycm. Automated Exposure Control for Dose Reduction was Utilized. TECHNIQUE: CT scan of the head is performed without contrast. COMPARISON: CT brain February 28, 2023. FINDINGS: There is no acute intracranial hemorrhage or midline shift identified. There is backgroun d moderate diffuse ventricular and sulcal prominence predominance. Old infarct inferior left occipita l lobe redemonstrated. There is new Ballard-white matter blurring with sulcal effacement involving the l eft frontal and parietal lobes extending to the superior temporal lobe some new dependent fluid in th e right maxillary sinus. Patchy opacification of the right ethmoid sinuses is redemonstrated. Some n ew mild mucosal thickening involving sphenoid sinuses and bilateral maxillary sinuses. IMPRESSION: Significant evolving acute infarct left middle cerebral artery distribution. A [place] level critical message alert has been initiated for Baljit Tidewll MD via the [employer] Critical Results System on 03/02/2023 4:27 PM. This message alert has been sent to Baljit guzman MD via the preferences provided by the clinician for the receipt of Radiology Critical Findings. Message ID [id number].
--- NOTE | 2023-03-02 19:54 | P.PN ---
Progress Note - Text Progress Note Date: 03/02/23 CT results were discussed with Neurology regional transportation manager. will continue to monitor for now . there is no bleeding or midline shift reported.
[2023-03-02] MEDS: ATORVASTATIN 80 MG TAB PO SCH (20:17)
[2023-03-03] MEDS: SODIUM CHLORIDE 0.9% 1,000 ML IV SCH ×2 (07:52→16:26)
[2023-03-03] MEDS: TICAGRELOR 90 MG TAB PO SCH ×2 (07:56→20:06)
[2023-03-03] MEDS: HEPARIN SODIUM,PORCINE/PF 5,000 UNIT/0.5 ML SYRINGE SQ SCH ×2 (07:56→20:06)
[2023-03-03] MEDS: FAMOTIDINE 20 MG TAB PO SCH ×2 (07:56→20:06)
[2023-03-03] MEDS: ASPIRIN 300 MG SUPP RECTAL SCH (07:56)
--- NOTE | 2023-03-03 12:55 | P.PN ---
Subjective Progress Note Date: 03/03/23 Patient is an 82-year-old male with post polio syndrome requiring chronic indwelling Bla catheter who was brought in to the emergency department for altered mentation, right sided weakness and slurred speech. Was recently admitted from 01/18 to 01/24 for altered mentation. He was treated for a UTI and underwent stroke workup. He underwent MRI of the brain which showed an acute to subacute infarct. He was seen by neurology. He was placed on aspirin, Plavix, and Lipitor. He underwent carotid artery evaluation which revealed significant stenosis in the left internal carotid artery. Vascular surgery was consulted and patient will need carotid intervention, however will need to follow-up as outpatient. Subsequently he got discharge to SNF and recently got discharged from SNF. EMS was called at 3:30PM after patient had right sided weakness and slurred speech while in the washroom. He was lowered to the floor but may have hit his head. Of note, he was scheduled for TCAR on 02/10/[address] Bal however in preop they reportedly were unable to get IV access, then patient had a hypertensive /hypotensive episodes and procedure was aborted. 03/01 Patient was seen and examined. No acute events overnight. Patient has significant right-sided neglect. He also failed his swallow evaluation today. He is unable to voice his concerns. He appears agitated. Case was discussed with his and Dr. Pickett at bedside. 03/02 Patient was seen and examined. Discussed with pathology, he has been advanced to NDD 1 pureed diet. reports less agitation. He is able to follow basic commands. 03/03 Patient was seen and examined. Repeat CT shows evolving MCA stroke. reports patient is more lethargic and sleepy compared to yesterday. General: sleeping and lethargic, appears at stated age Derm: warm, dry Head: atraumatic, normocephalic, symmetric Eyes: no lid lag, anicteric sclera Cardiovascular: S1S2 reg, no murmur Lungs: CTA bilateral, no rhonchi, no rales , no accessory muscle use Ext: no gross muscle atrophy, no edema, no contractures Neuro: RU and RLE paraplegia. Right sided neglect. Unable to follow commands. Psych: Unable to follow commands. Acute ischemic stroke Symptomatic left ICA stenosis Normocytic anemia Hyponatremia with elevated BUN likely due to dehydration Possible UTI in the setting of chronic indwelling Bal catheter Based on my assessment of this patient, this patient meets a moderate complexity level of care. Patient has an acute diagnosis of ischemic stroke that poses a threat to life or bodily function. He has a history of L ICA stenosis of 90%. This is a significant stroke as patient has failed his swallow evaluation with profound right upper and right lower extremity weakness along with inability to speak and agitation. Urinalysis shows moderate leukocyte esterase for which she'll be started on Rocephin 2 g IV daily. Urine culture will be followed. He is to continue aspirin 300 mg rectally daily, Ticagrelor 90 mg by mouth twice a day and Lipitor 80 mg by mouth at bedtime. Advance neuro checks as ordered along with telemetry monitoring. PT, OT and speech therapy is on board. Patient will likely need PEG tube on discharge for nutrition. Vascular surgery on board with regard to his critical stenosis in the left ICA. His is the decision maker. Patient is no code. I have reviewed the following ada accommodation consultant notes: None. I have reviewed the results of the following tests: Repeat CT head shows evolving MCA stroke I have ordered the following tests: None. I have discussed the care of this patient with the following independent historian: Case was discussed with the at bedside. I have independently interpreted the following test below: No. I have discussed the management of this patient with the following physician: The case was discussed with Dr. Pickett, switch Plavix to Brilinta when patient is able to swallow. Patient is poor prognosis. Objective - Vital Signs Vital signs: Vital Signs Temp 98.2 F 03/03/23 11:30 Pulse 56 L 03/03/23 11:30 Resp 20 03/03/23 11:30 BP 151/81 03/03/23 11:30 Pulse Ox 100 03/03/23 11:30 FiO2 Intake & Output 03/02/23 03/03/23 03/03/23 18:59 06:59 18:59 Intake Total 1270 Output Total 1556 342 6832 Balance -1800 -400 -30 Intake: IV 20 Invasive Line 2 20 Intake, IV Titration 1250 Amount Sodium Chloride 0.9% 1, 1200 000 ml @ 100 mls/hr IV . Q10H NICOLE Rx#:[id number] cefTRIAXone 2 gm In 50 Sodium Chloride 0.9% 50 ml @ 100 mls/hr IVPB Q24HR NICOLE Rx#:[id number] Output: Urine 1712 272 9956 Uretheral (Bal) 1300 Other: Voiding Method Indwelling Catheter Indwelling Catheter Indwelling Catheter # Voids 0 # Bowel Movements 1 1 - Labs CBC & Chem 7: 02/28/23 16:15 02/28/23 16:15
[2023-03-03] MEDS: ATORVASTATIN 80 MG TAB PO SCH (20:06)
[2023-03-04] MEDS: SODIUM CHLORIDE 0.9% 1,000 ML IV SCH ×2 (02:27→11:09)
[2023-03-04] MEDS: HEPARIN SODIUM,PORCINE/PF 5,000 UNIT/0.5 ML SYRINGE SQ SCH ×2 (09:23→19:48)
[2023-03-04] MEDS: FAMOTIDINE 20 MG TAB PO SCH ×2 (09:24→19:48)
[2023-03-04] MEDS: ASPIRIN 300 MG SUPP RECTAL SCH (09:24)
[2023-03-04] MEDS: TICAGRELOR 90 MG TAB PO SCH ×2 (09:24→19:48)
[2023-03-04] MEDS: lisinopriL 5 MG TAB PO SCH (10:39)
--- NOTE | 2023-03-04 13:16 | P.PN ---
Subjective Progress Note Date: 03/04/23 Patient seen at bedside and he is accompanied with his . feels he is swallowing better and she was able to feed him yesterday without any issues. According to the patient's nurse is about the same today compared to yesterday. Objective - Vital Signs Vital signs: Vital Signs Temp 97.2 F L 03/04/23 09:18 Pulse 61 03/04/23 11:08 Resp 20 03/04/23 11:08 BP 176/82 03/04/23 11:08 Pulse Ox 100 03/04/23 11:08 FiO2 Intake & Output 03/03/23 03/04/23 03/04/23 18:59 06:59 18:59 Intake Total 1490 50 Output Total 1300 1025 700 Balance 190 -1025 -650 Intake: IV 20 Invasive Line 2 20 Intake, IV Titration 1250 Amount Sodium Chloride 0.9% 1, 1200 000 ml @ 100 mls/hr IV . Q10H NICOLE Rx#:[id number] cefTRIAXone 2 gm In 50 Sodium Chloride 0.9% 50 ml @ 100 mls/hr IVPB Q24HR NICOLE Rx#:[id number] Oral 220 50 Output: Urine 1300 1025 700 Uretheral (Bal) 1300 Other: Voiding Method Indwelling Catheter Indwelling Catheter Indwelling Catheter # Voids 0 # Bowel Movements 1 1 - Exam GENERAL: The patient is lying in bed and is not in acute distress. NEUROLOGICAL: Limited this patient was sleeping Right lower facial droop Some of the workup during this hospital visit consisted of: Lipid panel is a triglyceride of 70, cholesterol is 85, LDLs 30 and HDL is 40. CT of the head is reported as no acute intracranial processes. Nonspecific white matter changes, likely secondary due to chronic small vessel ischemic disease. Remote left posterior temporal and occipital lobe infarct. Small right frontal scalp contusion. No evidence of cervical spine fracture. Moderate multilevel degenerative disc disease. CT angiography of the head and neck is reported as occlusion of left internal carotid artery just beyond the bifurcation. Previous minimal flow is not identified. Diminished flow within the left posterior cerebral last culture. This could be due to shunting through the posterior communicating artery to the anterior [place] of [place]. Limited 2-D echo is ejection fraction of 50-55%. Trace mitral and aortic regurgitation. Carotid duplex is reported as mild PLAQUE WITHIN THE RIGHT CAROTID BULB. NO EVIDENCE OF HEMODYNAMICALLY SIGNIFICANT STENOSIS OF THE RIGHT INTERNAL CAROTID ARTERY ORIGIN. OCCLUSION OF THE LEFT INTERNAL CAROTID ARTERY JUST PAST BIFURCATION CORRESPONDS TO YESTERDAY CTA HEAD AND NECK. CT of the head is reported as significantly evolving acute infarct in the left middle cerebral artery distribution. I personally reviewed the CT and I agree there is no involvement in the left frontal parietal region. There is no midline shift. - Labs CBC & Chem 7: 02/28/23 16:15 02/28/23 16:15 Assessment and Plan Assessment: This is an 82-year-old gentleman with had a recent stroke to his end of December 2022 and he had symptomatic left ICA. On 02/28/2023 around 3:30 PM he had sudden onset right-sided weakness with speech difficulty. Acute left MCA ischemic stroke due to artery to artery embolic (since had symptomatic left ICA stenosis) Right upper extremity plegia and right lower paresis due to above Left ICA occlusion on recent CTA and carotid duplex. 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 Continue Brilinta 90mg 1 tab bid since failed Plavix. Continue Lipitor 80 mg daily at bedtime for secondary stroke prophylaxis I will get repeat CT head to evaluate if any midline shift or significant edema as result of stroke. He could not tolerate MRI during this admission but it shows left MCA stroke and it will not pattern changer. Consider NG or PEG tube if continues to have dysphagia or not receiving enough nutrition. Vascular surgery team: And reported symptomatic and supportive treatment. No indication for any vascular surgical intervention for Left ICA. Continue neuro checks. Cardiac monitoring PT, OT and TRAIN ENGINEER are consulted Defer the rest of the medical management to primary team For DVT prophylaxis: On subq heparin 5000U every 12 hours. UPDATE: Repeat CT head: I felt there is evolution of left MCA stroke but no midline shift appreciated and ventricles appear patent. Pending official report. The plan is discussed with the patient's and detailed as well as the primary team. Dr. Bhagat will start neurology service tomorrow A.M. Time with Patient: Less than 30
--- NOTE | 2023-03-04 13:58 | P.PN ---
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 Was recently admitted from 01/18 to 01/24 for altered mentation. He was treated for a UTI and underwent stroke workup. He underwent MRI of the brain which showed an acute to subacute infarct. He was seen by neurology. He was placed on aspirin, Plavix, and Lipitor. He underwent carotid artery evaluation which revealed significant stenosis in the left internal carotid artery. Vascular surgery was consulted and patient will need carotid intervention, however will need to follow-up as outpatient. Subsequently he got discharge to SNF and recently got discharged from SNF. EMS was called at 3:30PM after patient had right sided weakness and slurred speech while in the washroom. He was lowered to the floor but may have hit his head. Of note, he was scheduled for TCAR on 02/10/[address] Bal however in preop they reportedly were unable to get IV access, then patient had a hypertensive /hypotensive episodes and procedure was aborted. 03/01 Patient was seen and examined. No acute events overnight. Patient has significant right-sided neglect. He also failed his swallow evaluation today. He is unable to voice his concerns. He appears agitated. Case was discussed with his and Dr. Pickett at bedside. 03/02 Patient was seen and examined. Discussed with pathology, he has been advanced to NDD 1 pureed diet. reports less agitation. He is able to follow basic commands. 03/03 Patient was seen and examined. Repeat CT shows evolving MCA stroke. reports patient is more lethargic and sleepy compared to yesterday. 03/04 Patient was seen and examined. He is more awake today. Clinical condition and deficits similar. General: appears at stated age Derm: warm, dry Head: atraumatic, normocephalic, symmetric Eyes: no lid lag, anicteric sclera Cardiovascular: S1S2 reg, no murmur Lungs: CTA bilateral, no rhonchi, no rales , no accessory muscle use Ext: no gross muscle atrophy, no edema, no contractures Neuro: RU and RLE paraplegia. Right sided neglect. Unable to follow commands. Psych: Unable to follow commands. Acute ischemic stroke Symptomatic left ICA stenosis Normocytic anemia Hyponatremia with elevated BUN likely due to dehydration Possible UTI in the setting of chronic indwelling Bal catheter Based on my assessment of this patient, this patient meets a moderate complexity level of care. Patient has an acute diagnosis of ischemic stroke that poses a threat to life or bodily function. He has a history of L ICA stenosis of 90%. This is a significant stroke as patient has failed his swallow evaluation with profound right upper and right lower extremity weakness along with inability to speak and agitation. He is to continue aspirin 300 mg rectally daily, Ticagrelor 90 mg by mouth twice a day and Lipitor 80 mg by mouth at bedtime. Advance neuro checks as ordered along with telemetry monitoring. PT, OT and speech therapy is on board. Patient will likely need PEG tube on discharge for nutrition. Vascular surgery on board with regard to his critical stenosis in the left ICA. His is the decision maker. Patient is no code. I have reviewed the following child welfare consultant notes: None. I have reviewed the results of the following tests: None. I have ordered the following tests: Repeat CT head ordered and pending. I have discussed the care of this patient with the following independent historian: Case was discussed with the at bedside. I have independently interpreted the following test below: No. I have discussed the management of this patient with the following physician: The case was discussed with Dr. Pickett, switch Plavix to Brilinta when patient is able to swallow. Obtain repeat CT head. Patient is poor prognosis. Objective - Vital Signs Vital signs: Vital Signs Temp 97.2 F L 03/04/23 09:18 Pulse 61 03/04/23 13:33 Resp 20 03/04/23 11:08 BP 176/82 03/04/23 11:08 Pulse Ox 100 03/04/23 11:08 FiO2 Intake & Output 03/03/23 03/04/23 03/04/23 18:59 06:59 18:59 Intake Total 1490 50 Output Total 1300 1025 700 Balance 190 -1025 -650 Intake: IV 20 Invasive Line 2 20 Intake, IV Titration 1250 Amount Sodium Chloride 0.9% 1, 1200 000 ml @ 100 mls/hr IV . Q10H NICOLE Rx#:[id number] cefTRIAXone 2 gm In 50 Sodium Chloride 0.9% 50 ml @ 100 mls/hr IVPB Q24HR NICOLE Rx#:[id number] Oral 220 50 Output: Urine 1300 1025 700 Uretheral (Bal) 1300 Other: Voiding Method Indwelling Catheter Indwelling Catheter Indwelling Catheter # Voids 0 # Bowel Movements 1 1 - Labs CBC & Chem 7: 02/28/23 16:15 02/28/23 16:15
[2023-03-04] MEDS: amLODIPine 10 MG TAB PO SCH (17:25)
--- NOTE | 2023-03-04 18:29 | CT ---
EXAMINATION TYPE: CT brain wo con DATE OF EXAM: 03/04/2023 COMPARISON: 03/02/2023 INDICATION: Stroke. DLP: 1174.4 mGycm, Automated exposure control for dose reduction was used. CONTRAST: None CT of the brain is performed utilizing 3 mm thick sections through the posterior fossa and 3 mm thick sections through the remaining calvarium. Study is performed within 24 hours of arrival to the hosp ital. No abnormal hyperdensity is present to suggest an acute intracranial hemorrhage. No mass lesion is evident. There is a large left parietal lobe infarct. Extent appears stable from comparison. There is some inv olvement of the watershed region also present previously. There is effacement of sulci at the level o f the infarct. Mild compression of the left lateral ventricle is present. No temporal horn dilatation is evident. No hydrocephalus. No subfalcine herniation. Quadrigeminal plate and ambient cisterns are patent. Ventricles and sulci are otherwise prominent for the patient age. There is an air-fluid level within the right maxillary sinus. Mucosal thickening within the left maxillary sinus. There is opacification through anterior and mid r ight ethmoid air cells. Left inferior mastoid air cells have some fluid. IMPRESSIONS: 1. Stable large left middle cerebral artery infarct. 2. Stable appearing watershed region ischemia may be chronic.
[2023-03-04] MEDS: ATORVASTATIN 80 MG TAB PO SCH (19:48)
[2023-03-05] MEDS: SODIUM CHLORIDE 0.9% 1,000 ML IV SCH ×2 (01:54→04:32)
[2023-03-05] MEDS: HEPARIN SODIUM,PORCINE/PF 5,000 UNIT/0.5 ML SYRINGE SQ SCH ×2 (07:34→21:26)
[2023-03-05] MEDS: ASPIRIN 81 MG PO SCH (07:34)
[2023-03-05] MEDS: amLODIPine 10 MG TAB PO SCH (07:34)
[2023-03-05] MEDS: FAMOTIDINE 20 MG TAB PO SCH ×2 (07:34→21:26)
[2023-03-05] MEDS: TICAGRELOR 90 MG TAB PO SCH ×2 (07:34→21:26)
[2023-03-05] MEDS: lisinopriL 5 MG TAB PO SCH (07:34)
[2023-03-05 09:53] LABS: HCT 36.6 % (39.0-53.0); HGB 12.3 gm/dL (13.0-17.5); MCH 31.3 pg (25.0-35.0); MCHC 33.5 g/dL (31.0-37.0); MCV 93.6 fL (80.0-100.0); Mean Platelet Volume 8.3; Platelet Count 272 k/uL (150-450); RBC 3.92 m/uL (4.30-5.90); RDW 12.7 % (11.5-15.5); WBC 9.6 k/uL (3.8-10.6)
[2023-03-05 10:14] LABS: African American GFR (CKD) >90 (>60 ml/min/1.73 sqM); Anion Gap 9 mmol/L; Blood Urea Nitrogen 8 mg/dL (9-20); Calcium 8.5 mg/dL (8.4-10.2); Carbon Dioxide 24 mmol/L (22-30); Chloride 103 mmol/L (98-107); Glucose 90 mg/dL (74-99); Non-African American GFR(CKD) >90 (>60 ml/min/1.73 sqM); Potassium 3.4 mmol/L (3.5-5.1); Sodium 136 mmol/L (137-145)
[2023-03-05 12:03] LABS: Glucose,Whole Blood 84 mg/dL (70-110)
--- NOTE | 2023-03-05 15:00 | P.PN ---
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 Was recently admitted from 01/18 to 01/24 for altered mentation. He was treated for a UTI and underwent stroke workup. He underwent MRI of the brain which showed an acute to subacute infarct. He was seen by neurology. He was placed on aspirin, Plavix, and Lipitor. He underwent carotid artery evaluation which revealed significant stenosis in the left internal carotid artery. Vascular surgery was consulted and patient will need carotid intervention, however will need to follow-up as outpatient. Subsequently he got discharge to SNF and recently got discharged from SNF. EMS was called at 3:30PM after patient had right sided weakness and slurred speech while in the washroom. He was lowered to the floor but may have hit his head. Of note, he was scheduled for TCAR on 02/10/[address] Bal however in preop they reportedly were unable to get IV access, then patient had a hypertensive /hypotensive episodes and procedure was aborted. 03/01 Patient was seen and examined. No acute events overnight. Patient has significant right-sided neglect. He also failed his swallow evaluation today. He is unable to voice his concerns. He appears agitated. Case was discussed with his and Dr. Pickett at bedside. 03/02 Patient was seen and examined. Discussed with pathology, he has been advanced to NDD 1 pureed diet. reports less agitation. He is able to follow basic commands. 03/03 Patient was seen and examined. Repeat CT shows evolving MCA stroke. reports patient is more lethargic and sleepy compared to yesterday. 03/04 Patient was seen and examined. He is more awake today. Clinical condition and deficits similar. 03/05 Patient was seen and examined. Clinical condition and deficits similar. CT head shows stable large L MCA infarct. General: appears at stated age Derm: warm, dry Head: atraumatic, normocephalic, symmetric Eyes: no lid lag, anicteric sclera Cardiovascular: good distal perfusion in all 4 extremities Lungs: No accessory muscle use Ext: no gross muscle atrophy, no edema, no contractures Neuro: Unable to follow commands. Psych: Unable to follow commands. Acute ischemic stroke Symptomatic left ICA stenosis Normocytic anemia Hyponatremia with elevated BUN likely due to dehydration Possible UTI in the setting of chronic indwelling Bal catheter Based on my assessment of this patient, this patient meets a moderate complexity level of care. Patient has an acute diagnosis of ischemic stroke that poses a threat to life or bodily function. He has a history of L ICA stenosis of 90%. This is a significant stroke as patient has failed his swallow evaluation with profound right upper and right lower extremity weakness along with inability to speak and agitation. He is to continue aspirin 300 mg rectally daily, Ticagrelor 90 mg by mouth twice a day and Lipitor 80 mg by mouth at bedtime. Advance neuro checks as ordered along with telemetry monitoring. PT, OT and speech therapy is on board. Patient will likely need PEG tube on discharge for nutrition. Vascular surgery on board with regard to his critical stenosis in the left ICA. His is the decision maker. Patient is no code. I have reviewed the following research consultant notes: None. I have reviewed the results of the following tests: CBC shows hemoglobin 12.3. BMP shows sodium of 136, potassium of 3.4 and BUN of 8. I have ordered the following tests: None. I have discussed the care of this patient with the following independent historian: Case was discussed with the at bedside. I have independently interpreted the following test below: No. I have discussed the management of this patient with the following physician: None. Objective - Vital Signs Vital signs: Vital Signs Temp 97.5 F L 03/05/23 11:54 Pulse 54 L 03/05/23 13:14 Resp 20 03/05/23 11:54 BP 157/76 03/05/23 11:54 Pulse Ox 100 03/05/23 11:54 FiO2 21 03/05/23 10:01 Intake & Output 03/04/23 03/05/23 03/05/23 18:59 06:59 18:59 Intake Total 140 Output Total 975 1500 425 Balance -454 -3966 -049 Intake: Oral 140 Output: Urine 975 1500 425 Other: Voiding Method Indwelling Catheter Indwelling Catheter Indwelling Catheter # Bowel Movements 1 - Labs CBC & Chem 7: 03/05/23 09:17 03/05/23 09:17 Labs: Abnormal Lab Results - Last 24 Hours (Table) 03/05/23 03/05/23 Range/Units 09:17 09:17 RBC 3.92 L (4.30-5.90) m/uL Hgb 12.3 L (13.0-17.5) gm/dL Hct 36.6 L (39.0-53.0) % Sodium 136 L (137-145) mmol/L Potassium 3.4 L (3.5-5.1) mmol/L BUN 8 L (9-20) mg/dL
[2023-03-05] MEDS: POTASSIUM CHLORIDE 10 MEQ in WATER FOR INJECTION 1 100ML.BAG IVPB SCH ×2 (15:07→17:03)
[2023-03-05 16:37] LABS: Glucose,Whole Blood 105 mg/dL (70-110)
[2023-03-05 20:07] LABS: Glucose,Whole Blood 121 mg/dL (70-110)
[2023-03-05] MEDS: ATORVASTATIN 80 MG TAB PO SCH (21:26)
[2023-03-06 06:21] LABS: Glucose,Whole Blood 93 mg/dL (70-110)
[2023-03-06] MEDS: FAMOTIDINE 20 MG TAB PO SCH ×2 (08:42→22:07)
[2023-03-06] MEDS: TICAGRELOR 90 MG TAB PO SCH (08:42)
[2023-03-06] MEDS: ASPIRIN 81 MG PO SCH (08:42)
[2023-03-06] MEDS: HEPARIN SODIUM,PORCINE/PF 5,000 UNIT/0.5 ML SYRINGE SQ SCH ×2 (08:42→22:07)
[2023-03-06] MEDS: lisinopriL 5 MG TAB PO SCH (08:42)
[2023-03-06] MEDS: amLODIPine 10 MG TAB PO SCH (08:42)
[2023-03-06] MEDS: SODIUM CHLORIDE 0.9% 1,000 ML IV SCH (10:31)
[2023-03-06 11:32] LABS: Glucose,Whole Blood 94 mg/dL (70-110)
--- NOTE | 2023-03-06 12:03 | P.GSCN ---
History of Present Illness Consult date: 03/06/23 History of present illness: CHIEF COMPLAINT: Possible stroke Reason for consult: Possible PEG tube placement HISTORY OF PRESENT ILLNESS: This is a 82-year-old male with a known history of CVA in December and post polio syndrome. He presented to the hospital with altered mental status and right-sided weakness and aphasia with evidence of a new stroke. Patient has been having poor oral intake. The consultants that he is not meeting his nutritional needs. He has been evidence of dysphagia. The food that does get placed in his mouth he drools it out. Surgical service has been consulted for possible PEG tube placement. PAST MEDICAL HISTORY: See below PAST SURGICAL HISTORY: See below MEDICATIONS: See below ALLERGIES: See below SOCIAL HISTORY: No illicit drug use. REVIEW OF SYSTEMS: CONSTITUTIONAL: Denies fever or chills. HEENT: Denies blurred vision, vision changes, or eye pain. Denies hemoptysis CARDIOVASCULAR: Denies chest pain or pressure. RESPIRATORY: No shortness of breath. GASTROINTESTINAL: See HPI for pertinent findings HEMATOLOGIC: Denies bleeding disorders. GENITOURINARY: Denies any blood in urine or increased urinary frequency. SKIN: Denies pruitis. Denies rash. PHYSICAL EXAM: VITAL SIGNS: Reviewed GENERAL: no acute distress. ABDOMEN: Soft. Nondistended. Nontender NEUROLOGIC: He is awake. Aphasia LABORATORY DATA: WBC is 9.6 Hgb 12.3 plt 272 Sodium 136 potassium 3.4 creatinine 0.67 Albumin 3.3 IMAGING: ASSESSMENT: 1. CVA 2. Dysphagia 3. Mild protein calorie malnutrition PLAN: -Awaiting further recommendations per surgeon regarding EGD and PEG tube placement -Hold Brilenta for peg tube placement -Continue supportive -Hypokalemia. Potassium replaced yesterday. Repeat BMP Thank you for this consultation Physician Broom Stitcher note has been reviewed by physician. Signing provider agrees with the documented findings, assessment, and plan of care. I have personally seen and examined the patient, reviewed the TIGHTENING MACHINE OPERATOR /PAs history, exam and MDM and agree with the assessment and plan as written. Based on total visit time, I have performed more than 50% of the visit. As above: Patient with 2 recent CVA events. Patient with poor oral intake and suspected aspiration. Discussed options of PEG tube placement in detail with the patient's . She would like to proceed. We discussed the fact that he was on antiplatelet therapy. His dose today was held. Obviously prolonged cessation of this medication relates him with further risks for stroke. We decided to hold his Berlinta to for today and tomorrow. We'll proceed with PEG tube placement tomorrow. Increased risks of bleeding because of the antiplatelet medications reviewed. She is agreeable. Additional risks of anesthesia-related complications, infection, fistula, bowel injury discussed. She agrees and wishes to proceed. Past Medical History Past Medical History: Hypertension, Prostate Disorder Additional Past Medical History / Comment(s): Post polio syndrome- uses walker & wheelchair- requires assistance, indwelling hancock catheter starting Dec 06, 2020, catheter last changed 01/18/[address] [facility] and changed monthly; due to be changed 02/18/23hx UTI's since catheter insertion, BPH, recent hospitalization 01/18/23 to 01/24/23 with CVA which affected speech, memory and some confusion, currently at [facility] for rehab since stroke, left carotid artery stenosis found during his last admission December to January 2023. History of Any Multi-Drug Resistant Organisms: None Reported Past Surgical History: No Surgical Hx Reported Additional Past Surgical History / Comment(s): Mole removed from back (2020), attempted TCAR this admission without success and case was canceled related to complications. Past Anesthesia/Blood Transfusion Reactions: No Reported Reaction Additional Past Anesthesia/Blood Transfusion Reaction / Comm: Uncontrolled blood pressures with anesthesia and intubation during attempted TCAR today 02/10/23. Past Psychological History: No Psychological Hx Reported Smoking Status: Never smoker Past Alcohol Use History: Rare Past Drug Use History: None Reported - Past Family History Mother Family Medical History: Myocardial Infarction ([place]) Father Family Medical History: Myocardial Infarction ([place]) Medications and Allergies Home Medications Medication Instructions Recorded Confirmed Type Aspirin 325 mg PO DAILY tab 01/24/23 02/28/23 Rx Atorvastatin [Lipitor] 40 mg PO HS #0 tab 01/24/23 02/28/23 Rx Clopidogrel [Plavix] 75 mg PO DAILY #0 tab 01/24/23 02/28/23 Rx Famotidine [Pepcid] 20 mg PO BID #0 tab 01/24/23 02/28/23 Rx lisinopriL [Zestril] 5 mg PO DAILY tab 01/24/23 02/28/23 Rx Acetaminophen Tab [Tylenol] 650 mg PO Q6HR PRN 02/07/23 02/28/23 History polyethylene glycoL 3350 [Miralax] 17 gm PO HS 02/07/23 02/28/23 History Sulfamethox-Tmp 800-160Mg [Bactrim 1 tab PO Q12HR 02/28/23 02/28/23 History DS 800-160 mg] Allergies Allergy/AdvReac Type Severity Reaction Status Date / Time No Known Allergies Allergy Verified 02/28/23 18:06 Surgical - Exam Vital Signs Temp Pulse Resp BP Pulse Ox 97 F L 78 18 138/83 99 02/28/23 16:08 02/28/23 16:08 02/28/23 16:08 02/28/23 16:08 02/28/23 16:08 Results - Labs 03/05/23 09:17 03/06/23 12:21 Abnormal Lab Results - Last 24 Hours (Table) 03/05/23 Range/Units 20:06 POC Glucose (mg/dL) 121 H (70-110) mg/dL
[2023-03-06 12:41] LABS: African American GFR (CKD) >90 (>60 ml/min/1.73 sqM); Anion Gap 11 mmol/L; Blood Urea Nitrogen 8 mg/dL (9-20); Calcium 8.4 mg/dL (8.4-10.2); Carbon Dioxide 24 mmol/L (22-30); Chloride 101 mmol/L (98-107); Glucose 107 mg/dL (74-99); Non-African American GFR(CKD) >90 (>60 ml/min/1.73 sqM); Potassium 3.3 mmol/L (3.5-5.1); Sodium 136 mmol/L (137-145)
--- NOTE | 2023-03-06 13:09 | XR ---
EXAMINATION TYPE: XR chest 1V portable DATE OF EXAM: 03/06/2023 Comparison: 02/28/2023 Clinical History: 82-year-old male PNA Findings: Patient is obliqued toward the right. Heart mildly enlarged. Mild interstitial increased densities in the periphery of the mid and lower lungs. No rosa consolidation seen. Impression: Possible early interstitial infiltrates in the periphery of the mid and lower lungs. Consider atypica l pneumonias and bronchitis. Follow-up can be performed.
[2023-03-06 15:09] VITALS: BMI 23.6
[2023-03-06] MEDS: AMPICILLIN-SULBACTAM 3 GM in SODIUM CHLORIDE 0.9% 100 ML IVPB SCH (16:00)
--- NOTE | 2023-03-06 16:02 | P.PN ---
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 Was recently admitted from 01/18 to 01/24 for altered mentation. He was treated for a UTI and underwent stroke workup. He underwent MRI of the brain which showed an acute to subacute infarct. He was seen by neurology. He was placed on aspirin, Plavix, and Lipitor. He underwent carotid artery evaluation which revealed significant stenosis in the left internal carotid artery. Vascular surgery was consulted and patient will need carotid intervention, however will need to follow-up as outpatient. Subsequently he got discharge to SNF and recently got discharged from SNF. EMS was called at 3:30PM after patient had right sided weakness and slurred speech while in the washroom. He was lowered to the floor but may have hit his head. Of note, he was scheduled for TCAR on 02/10/[address] Bal however in preop they reportedly were unable to get IV access, then patient had a hypertensive /hypotensive episodes and procedure was aborted. 03/01 Patient was seen and examined. No acute events overnight. Patient has significant right-sided neglect. He also failed his swallow evaluation today. He is unable to voice his concerns. He appears agitated. Case was discussed with his and Dr. Pickett at bedside. 03/02 Patient was seen and examined. Discussed with pathology, he has been advanced to NDD 1 pureed diet. reports less agitation. He is able to follow basic commands. 03/03 Patient was seen and examined. Repeat CT shows evolving MCA stroke. reports patient is more lethargic and sleepy compared to yesterday. 03/04 Patient was seen and examined. He is more awake today. Clinical condition and deficits similar. 03/05 Patient was seen and examined. Clinical condition and deficits similar. CT head shows stable large L MCA infarct. 03/06 Patient was seen and examined. Clinical condition and deficits similar. Patient has a wet cough today with CXR concerning for developing PNA. Likely aspirating. Case was discussed with at bedside, she would like to go ahead and arrange for PEG placement. General: appears at stated age Derm: warm, dry Head: atraumatic, normocephalic, symmetric Eyes: no lid lag, anicteric sclera Cardiovascular: Normal S1 S2. No murmurs, rubs or gallops. Lungs: Coarse breath sounds bilaterally. Ext: no gross muscle atrophy, no edema, no contractures Neuro: Unable to follow commands. Right sided neglect. Psych: Unable to follow commands. Acute ischemic stroke Symptomatic left ICA stenosis Normocytic anemia Hyponatremia with elevated BUN likely due to dehydration Possible UTI in the setting of chronic indwelling Bal catheter Based on my assessment of this patient, this patient meets a moderate complexity level of care. Patient has an acute diagnosis of ischemic stroke that poses a threat to life or bodily function. He has a history of L ICA stenosis of 90%. This is a significant stroke as patient has failed his swallow evaluation with profound right upper and right lower extremity weakness along with inability to speak and agitation. He is to continue aspirin 300 mg rectally daily, Ticagrelor 90 mg by mouth twice a day and Lipitor 80 mg by mouth at bedtime. Advance neuro checks as ordered along with telemetry monitoring. PT, OT and speech therapy is on board. Patient will likely need PEG tube, surgery consulted, planned for tomorrow. Vascular surgery on board with regard to his critical stenosis in the left ICA, recommends medical management. His is the decision maker. Patient is no code. I have reviewed the following architectural sales consultant notes: Surgery note 03/06, plans for PEG tomorrow. I have reviewed the results of the following tests: BMP shows sodium of 136, potassium of 3.3 and BUN of 8, Cr 0.6. CXR shows possible early infiltrates. I have ordered the following tests: None. I have discussed the care of this patient with the following independent historian: Case was discussed with the at bedside, she is agreeable for PEG and placement. I have independently interpreted the following test below: No. I have discussed the management of this patient with the following physician: None. Objective - Vital Signs Vital signs: Vital Signs Temp 97.8 F 03/06/23 11:40 Pulse 80 03/06/23 14:00 Resp 14 03/06/23 14:00 BP 163/80 03/06/23 11:40 Pulse Ox 98 03/06/23 11:40 FiO2 21 03/05/23 10:01 Intake & Output 03/05/23 03/06/23 03/06/23 18:59 06:59 18:59 Intake Total 100 Output Total 425 500 500 Balance -325 -500 -500 Weight 74.843 kg Intake: Oral 100 Output: Urine 425 500 500 Other: Voiding Method Indwelling Catheter Indwelling Catheter Indwelling Catheter # Bowel Movements 1 - Labs CBC & Chem 7: 03/05/23 09:17 03/06/23 12:21 Labs: Abnormal Lab Results - Last 24 Hours (Table) 03/05/23 03/06/23 Range/Units 20:06 12:21 Sodium 136 L (137-145) mmol/L Potassium 3.3 L (3.5-5.1) mmol/L BUN 8 L (9-20) mg/dL Creatinine 0.60 L (0.66-1.25) mg/dL Glucose 107 H (74-99) mg/dL POC Glucose (mg/dL) 121 H (70-110) mg/dL
[2023-03-06 17:00] LABS: Glucose,Whole Blood 91 mg/dL (70-110)
--- NOTE | 2023-03-06 17:53 | P.PN ---
Subjective Progress Note Date: 03/06/23 Patient was initially seen by Dr. Wes Pickett. Please refer to his note for details. Patient is an 82-year-old male who has history of a smaller stroke in the left MCA territory on 01/20/2023, has severe left ICA stenosis, was supposed to have left ICA stenting versus CEA in 2 weeks. Patient was discharged to the [facility] on 01/24/2023. Patient returned to the hospital for elective left ICA stenting on 02/10/2023. Apparently preoperatively, patient has difficulty with IV placement. Once it was done, patient was intubated, but his blood pressure went up in 200 range, then dropped down significantly. He has some cardiac issues, therefore the surgery was aborted. He was sent back to [facility]. Patient was finally discharged home on 02/21/2023, but then readmitted this time on 02/28/2023 with a massive CVA left MCA territory. Patient was on aspirin and Plavix prior to the stroke. Patient has developed severe aphasia and complete right hemiplegia, face and arm much more than the leg. CT head revealed evolution of the left MCA CVA. Patient has developed dysphagia from CVA. Patient will undergo PEG placement in the morning. Surgery on board. Patient's was also present. Patient is currently on aspirin and Brilinta. Patient's mentions that he has severe aphasia. He knows her (his ) and their cats. Otherwise he is not communicative, nonverbal. He is flaccid on the right side, mainly the arm. Some of the workup during this hospital visit consisted of: Lipid panel is a triglyceride of 70, cholesterol is 85, LDLs 30 and HDL is 40. CT of the head is reported as no acute intracranial processes. Nonspecific white matter changes, likely secondary due to chronic small vessel ischemic disease. Remote left posterior temporal and occipital lobe infarct. Small right frontal scalp contusion. No evidence of cervical spine fracture. Moderate multilevel degenerative disc disease. CT angiography of the head and neck is reported as occlusion of left internal carotid artery just beyond the bifurcation. Previous minimal flow is not identified. Diminished flow within the left posterior cerebral last culture. This could be due to shunting through the posterior communicating artery to the anterior pilot point of [place]. Limited 2-D echo is ejection fraction of 50-55%. Trace mitral and aortic regurgitation. Carotid duplex is reported as mild PLAQUE WITHIN THE RIGHT CAROTID BULB. NO EVIDENCE OF HEMODYNAMICALLY SIGNIFICANT STENOSIS OF THE RIGHT INTERNAL CAROTID ARTERY ORIGIN. OCCLUSION OF THE LEFT INTERNAL CAROTID ARTERY JUST PAST BIFURCATION CORRESPONDS TO YESTERDAY CTA HEAD AND NECK. CT of the head is reported as significantly evolving acute infarct in the left middle cerebral artery distribution. I personally reviewed the CT and I agree there is no involvement in the left frontal parietal region. There is no midline shift. Objective - Vital Signs Vital signs: Vital Signs Temp 97.8 F 03/06/23 11:40 Pulse 63 03/06/23 11:40 Resp 14 03/06/23 11:40 BP 163/80 03/06/23 11:40 Pulse Ox 98 03/06/23 11:40 FiO2 21 03/05/23 10:01 Intake & Output 03/05/23 03/06/23 03/06/23 18:59 06:59 18:59 Intake Total 100 Output Total 425 500 500 Balance -325 -500 -500 Weight 74.843 kg Intake: Oral 100 Output: Urine 425 500 500 Other: Voiding Method Indwelling Catheter Indwelling Catheter Indwelling Catheter # Bowel Movements 1 - Exam Patient is slightly lethargic, but wakes up and smiles appropriately. He has global aphasia. No comprehension, cannot name or repeat. Patient has right facial weakness, central type. Patient has right visual field neglect. He has head preference to the left. Patient is completely flaccid in the right arm. He has some withdrawal or movement to painful stimuli in the right leg. Patient's 5 did see him moving his right leg spontaneously as well. Patient has Babinski on the right. - Labs CBC & Chem 7: 03/05/23 09:17 03/06/23 12:21 Labs: Abnormal Lab Results - Last 24 Hours (Table) 03/05/23 03/06/23 Range/Units 20:06 12:21 Sodium 136 L (137-145) mmol/L Potassium 3.3 L (3.5-5.1) mmol/L BUN 8 L (9-20) mg/dL Creatinine 0.60 L (0.66-1.25) mg/dL Glucose 107 H (74-99) mg/dL POC Glucose (mg/dL) 121 H (70-110) mg/dL Assessment and Plan Assessment: This is an 82-year-old gentleman with had a recent stroke in the end of December 2022 and he had symptomatic left ICA. On 02/28/2023 around 3:30 PM he had sudden onset right-sided weakness with speech difficulty. Acute left MCA ischemic stroke due to artery to artery embolic (since had symptomatic left ICA stenosis) Global aphasia, with right upper extremity plegia and right lower paresis due to above Left ICA occlusion on recent CTA and carotid duplex. 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 Continue Brilinta 90mg 1 tab bid since failed Plavix. Continue Lipitor 80 mg daily at bedtime for secondary stroke prophylaxis Repeat CT head 03/04/2023 revealed stable large left middle cerebral artery infarct. Stable appearing watershed region ischemia may be chronic. I personally reviewed CT head, agree with the findings. No midline shift. Patient could not tolerate MRI during this admission but it shows left MCA stro ke and it will not change control coordinator. Patient to undergo PEG placement in the morning. Vascular surgery team: And reported symptomatic and supportive treatment. No indication for any vascular surgical intervention for Left ICA stenosis. Continue neuro checks. Cardiac monitoring PT, OT and FOOD SERVICE SPECIALIST are consulted Defer the rest of the medical management to primary team For DVT prophylaxis: On subq heparin 5000U every 12 hours. Discussed with patient's .
[2023-03-06] MEDS: ATORVASTATIN 80 MG TAB PO SCH (22:07)
[2023-03-07] MEDS: AMPICILLIN-SULBACTAM 3 GM in SODIUM CHLORIDE 0.9% 100 ML IVPB SCH ×3 (00:10→15:38)
[2023-03-07] MEDS: SODIUM CHLORIDE 0.9% 1,000 ML IV SCH ×2 (05:59→23:55)
[2023-03-07 06:04] LABS: Glucose,Whole Blood 88 mg/dL (70-110)
[2023-03-07] MEDS: HEPARIN SODIUM,PORCINE/PF 5,000 UNIT/0.5 ML SYRINGE SQ SCH ×2 (09:11→20:31)
[2023-03-07 10:34] LABS: African American GFR (CKD) >90 (>60 ml/min/1.73 sqM); Anion Gap 9 mmol/L; Blood Urea Nitrogen 9 mg/dL (9-20); Calcium 8.9 mg/dL (8.4-10.2); Carbon Dioxide 29 mmol/L (22-30); Chloride 99 mmol/L (98-107); Glucose 89 mg/dL (74-99); Non-African American GFR(CKD) >90 (>60 ml/min/1.73 sqM); Potassium 3.9 mmol/L (3.5-5.1); Sodium 137 mmol/L (137-145)
[2023-03-07 11:47] LABS: Glucose,Whole Blood 91 mg/dL (70-110)
--- NOTE | 2023-03-07 12:30 | P.PN ---
Progress Note - Text Progress Note Date: 03/07/23 Patient here for PEG tube placement. Close it is discussed with the family yesterday. Patient will be full code during the procedure. agrees.
[2023-03-07] MEDS ORDERED: PHENYLEPHRINE-0.9% NACL SYG 1,000 MCG/10 ML SYRINGE ONE (12:34)
[2023-03-07] MEDS ORDERED: ePHEDrine 50 MG/ML 1 ML VIAL ONE (12:34)
[2023-03-07] MEDS ORDERED: LIDOCAINE 2% INJ 20 MG/ML (2 ML VIAL) ONE (12:34)
[2023-03-07] MEDS ORDERED: PROPOFOL 10 MG/ML 20 ML VIAL IV ONE (12:34)
[2023-03-07] MEDS ORDERED: IV FLUID CONTINUATION 1,000 ML IV ONE (12:35)
[2023-03-07 12:37] LABS: Glucose,Whole Blood 110 mg/dL (70-110)
[2023-03-07] MEDS: ASPIRIN 81 MG PO SCH (13:31)
[2023-03-07] MEDS: amLODIPine 10 MG TAB PO SCH (13:31)
[2023-03-07] MEDS: lisinopriL 5 MG TAB PO SCH (13:32)
[2023-03-07] MEDS: FAMOTIDINE 20 MG TAB PO SCH ×2 (13:32→20:31)
--- NOTE | 2023-03-07 14:34 | P.PCN ---
Date of Procedure: 03/07/23 Procedure(s) Performed: PREOPERATIVE DIAGNOSIS: Malnutrition POSTOPERATIVE DIAGNOSIS: Same PROCEDURE: EGD with PEG tube placement SURGEON: Roberto EBL: Minimal ANESTHESIA: Sedation COMPLICATIONS: None OPERATIVE PROCEDURE: The patient was placed in the supine position on the endoscopy table. The patient was sedated per anesthesia that time. The Olympus gastroscope was inserted into the oropharynx and passed under direct visualization to the region of the duodenum. No obstruction was seen. The pylorus was widely patent. The stomach was carefully inspected. The stomach was fully insufflated with air. The abdominal wall was inspected. The light was seen shining through the abdominal wall in the left upper quadrant. This site was chosen for PEG tube placement. The area was prepped in the usual sterile fashion. This area was then localized with lidocaine. No air was evident when aspirating while advancing the localizing needle into the stomach until the stomach was reached. A small vertical incision was made using the scalpel. The Seldinger needle was advanced into the lumen of the stomach the wire was advanced. The wire was grasped with an endoscopic snare. The wire was pulled through the oropharynx. The catheter was then threaded over the guidewire and the guidewire and catheter were pulled anteriorly until the hub of the PEG tube catheter was seated against the anterior wall the stomach. The circular bolster was applied and tightened down. The endoscope was then readvan mary into the stomach. There was no evidence of any bleeding and there was appropriate tightness on the bolster. The catheter was cut appropriately. The dual port feeding adapter was applied. DISPOSITION: Stable to recovery room
[2023-03-07 16:48] LABS: Glucose,Whole Blood 82 mg/dL (70-110)
--- NOTE | 2023-03-07 17:10 | P.PN ---
Progress Note - Text Progress Note Date: 03/07/23 Advanced Care Planning: Diagnoses: Acute ischemic CVA, left MCA with right-sided hemiplegia and expressive aphasia Critical internal carotid stenosis on the left Discussion: Person(s) present and participating in discussion: Summary: We had a long discussion regarding patient's overall prognosis given his recurrent strokes and inability to have a TCAR performed. She would like to try rehab therapy first after we get him adequate nutrition with a PEG tube. If he cannot regain significant functioning of his right side and inability to follow commands she realizes he will require long-term care. We discussed the differences between half-way, adult foster care as an assisted living situation, and 24-hour home care. She will look into these as he progresses. We discussed his anticipated discharge this week, he is a no code A total of 17 minutes of face to face time was spent discussing advanced care planning.
--- NOTE | 2023-03-07 17:24 | P.PN ---
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 Patient was initially hospitalized here from 01/18 through 01/24 were he was diagnosed with a urinary tract infection and acute to subacute CVA on MRI. He was started on aspirin, Plavix, and Lipitor. He was found to have left internal carotid artery artery stenosis. He was scheduled for a TCAR the procedure had to be aborted due to labile blood pressures. During this admission he was also found to have an acute left-sided MCA CVA which was confirmed on MRI. He had a repeat head CT to assess first reroll edema this did not show significant cerebral edema. He had poor oral intake with some difficulty swallowing. Patient will have PEG tube placed today. Patient seen and examined at bedside. He is nonverbal. is present at bed side. All questions answered. Vital signs reviewed General: nontoxic, no distress, appears at stated age Cardiovascular: S1S2 reg, no murmur, positive posterior tibial pulse bilateral, Lungs: Decreased breath sounds bilateral, no rhonchi, no rales , no accessory muscle use Abdominal: soft, nontender to palpation, no guarding, no appreciable organomegaly Ext: no gross muscle atrophy, no edema Neuro: Patient does not verbalize, he does look up when you are speaking to him, he has right-sided hemiparalysis Psych: Awake Assessment: Acute left MCA CVA due to symptomatic left internal carotid artery stenosis Possible aspiroation PNA, possible gram negative. Global aphasia with right upper extremity lesion and right lower extremity paresis, dysphagia Left internal carotid artery artery occlusion Post polio syndrome Hypertension, controlled UTI ruled out Resolved: Hyponatremia Imaging: none new Data Review: Vitals reviewed and temperature 98.9, pulse 70, respirations 18, blood pressure 158/79, O2 sat 98% on room air HER stay are reviewed and are unremarkable Plan: -Neurology note reviewed: Continue with aspirin 81 mg daily, and Brillenta - unasyn 3 grams q 8 hours - Resume Brillenta when okay with surgery - consult dietitian for tube feeds. -Norvasc 10 mg daily, Lipitor 80 mg at night, lisinopril 5 mg daily -Surgery recs -Supportive care -PT/OT/speech recommendations -Repeat chest x-ray in a.m. DVT prophylaxis: Heparin Anticipated discharge date: in 2-[address]: [facility] This dictation was prepared using [employer] voice recognition software. Though every attempt is made to correct errors during during dictation some may still exist. Objective - Vital Signs Vital signs: Vital Signs Temp 98.1 F 03/07/23 16:00 Pulse 80 03/07/23 16:00 Resp 16 03/07/23 16:00 BP 140/80 03/07/23 16:00 Pulse Ox 99 03/07/23 16:00 FiO2 21 03/05/23 10:01 Intake & Output 03/06/23 03/07/23 03/07/23 18:59 06:59 18:59 Intake Total 1150 118 550 Output Total 500 3000 450 Balance 650 -2882 100 Weight 74.843 kg Intake: IV 550 Intake, IV Titration 550 Amount Ampicillin-Sulbactam 3 gm 100 In Sodium Chloride 0.9% 100 ml @ 200 mls/hr IVPB Q8HR NICOLE Rx#:[id number] Sodium Chloride 0.9% 1, 400 000 ml @ 50 mls/hr IV . Q20H NICOLE Rx#:[id number] cefTRIAXone 2 gm In 50 Sodium Chloride 0.9% 50 ml @ 100 mls/hr IVPB Q24HR NICOLE Rx#:[id number] Oral 600 118 Output: Urine 500 3000 450 Other: Voiding Method Indwelling Catheter Indwelling Catheter Indwelling Catheter # Bowel Movements 1 - Labs CBC & Chem 7: 03/05/23 09:17 03/07/23 09:10 Labs: Abnormal Lab Results - Last 24 Hours (Table) 03/07/23 Range/Units 09:10 Creatinine 0.65 L (0.66-1.25) mg/dL
[2023-03-07 20:05] LABS: Glucose,Whole Blood 91 mg/dL (70-110)
[2023-03-07] MEDS: ATORVASTATIN 80 MG TAB PO SCH (20:31)
[2023-03-08] MEDS: AMPICILLIN-SULBACTAM 3 GM in SODIUM CHLORIDE 0.9% 100 ML IVPB SCH ×4 (00:03→23:43)
[2023-03-08 06:14] LABS: Glucose,Whole Blood 78 mg/dL (70-110)
--- NOTE | 2023-03-08 07:46 | XR ---
EXAMINATION TYPE: XR chest 1V portable DATE OF EXAM: 03/08/2023 6:39 AM COMPARISON: Chest radiograph from two days prior. TECHNIQUE: XR chest 1V portable Frontal view of the chest. CLINICAL INDICATION:Male, 82 years old with history of Pneumonia; FINDINGS: Lungs/Pleura: Prominent interstitial lung markings predominantly in the mid and lower lungs are not s ignificantly changed from prior. No evidence of focal consolidation, pneumothorax or pleural effusion . Pulmonary vascularity: Unremarkable. Heart/mediastinum: Cardiomediastinal silhouette is unremarkable. Musculoskeletal: No acute osseous pathology. IMPRESSION: Stable exam with no significant change from 2 days prior.
[2023-03-08] MEDS: HEPARIN SODIUM,PORCINE/PF 5,000 UNIT/0.5 ML SYRINGE SQ SCH ×2 (09:35→19:56)
[2023-03-08] MEDS: FAMOTIDINE 20 MG TAB PO SCH ×2 (09:35→19:50)
[2023-03-08] MEDS: ASPIRIN 81 MG PO SCH (09:35)
[2023-03-08] MEDS: amLODIPine 10 MG TAB PO SCH (09:35)
[2023-03-08] MEDS: lisinopriL 5 MG TAB PO SCH (09:35)
[2023-03-08] MEDS ORDERED: ACETAMINOPHEN TAB 325 MG TAB PEG/G-TUBE PRN (10:07)
[2023-03-08 10:49] LABS: HCT 39.2 % (39.0-53.0); MCH 31.2 pg (25.0-35.0); MCHC 33.2 g/dL (31.0-37.0); MCV 93.8 fL (80.0-100.0); Mean Platelet Volume 8.5; Platelet Count 318 k/uL (150-450); RBC 4.18 m/uL (4.30-5.90); RDW 12.6 % (11.5-15.5); WBC 10.6 k/uL (3.8-10.6)
[2023-03-08 11:00] LABS: African American GFR (CKD) >90 (>60 ml/min/1.73 sqM); Anion Gap 8 mmol/L; Blood Urea Nitrogen 8 mg/dL (9-20); Calcium 8.6 mg/dL (8.4-10.2); Carbon Dioxide 29 mmol/L (22-30); Chloride 99 mmol/L (98-107); Glucose 89 mg/dL (74-99); Non-African American GFR(CKD) 90 (>60 ml/min/1.73 sqM); Potassium 3.6 mmol/L (3.5-5.1); Sodium 136 mmol/L (137-145)
--- NOTE | 2023-03-08 11:11 | P.PN ---
Subjective Progress Note Date: 03/08/23 CHIEF COMPLAINT: Malnutrition HISTORY OF PRESENT ILLNESS: Patient is status post EGD with PEG tube placement. Patient is started to feeds today. Patient lying in bed comfortably. No evidence of pain. Afebrile. WBC is 10.6 hgb 13 platelets 318 Na 136 potassium 3.6 creatinine 0.69 PHYSICAL EXAM: VITAL SIGNS: Reviewed. GENERAL: Well-developed in no acute distress. ABDOMEN: Soft. Nondistended. Nontender. PEG tube site clean dry and intact ASSESSMENT: 1. Mild protein calorie malnutrition status post PEG tube placement 2. Dysphagia 3. CVA PLAN: -Start tube feedings today per dietitian recommendations -Ok to resume Brilenta this evening Physician Upkeep Worker note has been reviewed by physician. Signing provider agrees with the documented findings, assessment, and plan of care. I have personally seen and examined the patient, reviewed the [employer] /PAs history, exam and MDM and agree with the assessment and plan as written. Based on total visit time, I have performed more than 50% of the visit. As above: Patient doing well today. May start tube feeds today. May resume anticoagulation. Objective - Vital Signs Vital signs: Vital Signs Temp 98.8 F 03/08/23 04:00 Pulse 68 03/08/23 04:00 Resp 16 03/08/23 04:00 BP 136/78 03/08/23 04:00 Pulse Ox 98 03/08/23 08:49 FiO2 21 03/05/23 10:01 Intake & Output 03/07/23 03/08/23 03/08/23 18:59 06:59 18:59 Intake Total 1050 118 Output Total 750 800 Balance 300 -800 118 Intake: IV 550 Oral 500 118 Output: Urine 750 800 Uretheral (Bal) 300 Other: Voiding Method Indwelling Catheter Indwelling Catheter - Labs CBC & Chem 7: 03/08/23 10:28 03/08/23 10:28
[2023-03-08 11:44] LABS: Glucose,Whole Blood 106 mg/dL (70-110)
--- NOTE | 2023-03-08 14:45 | P.PN ---
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 Patient was initially hospitalized here from 01/18 through 01/24 were he was diagnosed with a urinary tract infection and acute to subacute CVA on MRI. He was started on aspirin, Plavix, and Lipitor. He was found to have left internal carotid artery artery stenosis. He was scheduled for a TCAR the procedure had to be aborted due to labile blood pressures. During this admission he was also found to have an acute left-sided MCA CVA which was confirmed on MRI. He had a repeat head CT to assess first reroll edema this did not show significant cerebral edema. He had poor oral intake with some difficulty swallowing. Patient had PEG tube placed 03/07/23. Patient seen and examined at bedside. He is non-verbal. He looks at me when I speak with him. No family present in room. Vital signs reviewed General: nontoxic, no distress, appears at stated age Cardiovascular: S1S2 reg, no murmur, positive posterior tibial pulse bilateral, Lungs: CTA bilateral, no rhonchi, no rales , no accessory muscle use Abdominal: soft, nontender to palpation, no guarding, no appreciable organomegaly Ext: no gross muscle atrophy, no edema Neuro: Patient does not verbalize, he does look up when you are speaking to him, he has right-sided hemiparalysis Psych: Awake Assessment: Acute left MCA CVA due to symptomatic left internal carotid artery stenosis Possible aspiration PNA, possible gram negative. Global aphasia with right upper extremity lesion and right lower extremity paresis, dysphagia Left internal carotid artery artery occlusion Post polio syndrome Hypertension, controlled UTI ruled out Resolved: Hyponatremia Imaging: Chest x-rays as reviewed by myself reveals no acute process on 03/08/23 Data Review: Vital signs reviewed and temperature 98.3, pulse 71, blood pressure 154/92, O2 sat 98% on room air Laboratory analysis reviewed remarkable for sodium 136. Plan: -Dietitian tube feeding recommendations reviewed. We'll initiate tube feeding -We will need repeat CBC, mag, phosphorus in a.m. -Pain control with Tylenol -Continue with aspirin 81 mg daily, and Brillenta - unasyn 3 grams q 8 hours for an additional 24 hours - Resume Brillenta when okay with surgery - consult dietitian for tube feeds. -Norvasc 10 mg daily, Lipitor 80 mg at night, lisinopril 5 mg daily -Surgery recs -Supportive care -PT/OT/speech recommendations DVT prophylaxis: Heparin Anticipated discharge date: in 1-[address]: [facility] This dictation was prepared using [employer] voice recognition software. Though every attempt is made to correct errors during during dictation some may still exist. Objective - Vital Signs Vital signs: Vital Signs Temp 98.3 F 03/08/23 08:00 Pulse 83 03/08/23 12:00 Resp 16 03/08/23 08:00 BP 160/73 03/08/23 12:00 Pulse Ox 92 L 03/08/23 12:00 FiO2 21 03/05/23 10:01 Intake & Output 03/07/23 03/08/23 03/08/23 18:59 06:59 18:59 Intake Total 1050 236 Output Total 750 800 Balance 300 -800 236 Weight 74.843 kg Intake: IV 550 Oral 500 236 Output: Urine 750 800 Uretheral (Bal) 300 Other: Voiding Method Indwelling Catheter Indwelling Catheter Indwelling Catheter - Labs CBC & Chem 7: 03/08/23 10:28 03/08/23 10:28 Labs: Abnormal Lab Results - Last 24 Hours (Table) 03/08/23 03/08/23 Range/Units 10:28 10:28 RBC 4.18 L (4.30-5.90) m/uL Sodium 136 L (137-145) mmol/L BUN 8 L (9-20) mg/dL
--- NOTE | 2023-03-08 16:18 | P.PN ---
Subjective Progress Note Date: 03/07/23 03/07/2023: Patient was seen for a follow-up. Patient's was also present today. Patient is slightly more alert and awake and interactive. He smiles. He has less right facial droop. Continues to be aphasic. Namenda and the right upper extremity. He does not volunteer movements of the right leg, but responds fairly well to painful stimuli. He moves the left side very normally. Patient had undergone PEG tube placement today. 03/06/2023: Patient was initially seen by Dr. Wes Pickett. Please refer to his note for details. Patient is an 82-year-old male who has history of a smaller stroke in the left MCA territory on 01/20/2023, has severe left ICA stenosis, was supposed to have left ICA stenting versus CEA in 2 weeks. Patient was discharged to the [facility] on 01/24/2023. Patient returned to the hospital for elective left ICA stenting on 02/10/2023. Apparently preoperatively, patient has difficulty with IV placement. Once it was done, patient was intubated, but his blood pressure went up in 200 range, then dropped down significantly. He has some cardiac issues, therefore the surgery was aborted. He was sent back to [facility]. Patient was finally discharged home on 02/21/2023, but then readmitted this time on 02/28/2023 with a massive CVA left MCA territory. Patient was on aspirin and Plavix prior to the stroke. Patient has developed severe aphasia and complete right hemiplegia, face and arm much more than the leg. CT head revealed evolution of the left MCA CVA. Patient has developed dysphagia from CVA. Patient will undergo PEG placement in the morning. Surgery on board. Patient's was also present. Patient is currently on aspirin and Brilinta. Patient's mentions that he has severe aphasia. He knows her (his ) and their cats. Otherwise he is not communicative, nonverbal. He is flaccid on the right side, mainly the arm. Some of the workup during this hospital visit consisted of: Lipid panel is a triglyceride of 70, cholesterol is 85, LDLs 30 and HDL is 40. CT of the head is reported as no acute intracranial processes. Nonspecific white matter changes, likely secondary due to chronic small vessel ischemic disease. Remote left posterior temporal and occipital lobe infarct. Small right frontal scalp contusion. No evidence of cervical spine fracture. Moderate multilevel degenerative disc disease. CT angiography of the head and neck is reported as occlusion of left internal carotid artery just beyond the bifurcation. Previous minimal flow is not identified. Diminished flow within the left posterior cerebral last culture. This could be due to shunting through the posterior communicating artery to the anterior [place]. Limited 2-D echo is ejection fraction of 50-55%. Trace mitral and aortic regurgitation. Carotid duplex is reported as mild PLAQUE WITHIN THE RIGHT CAROTID BULB. NO EVIDENCE OF HEMODYNAMICALLY SIGNIFICANT STENOSIS OF THE RIGHT INTERNAL CAROTID ARTERY ORIGIN. OCCLUSION OF THE LEFT INTERNAL CAROTID ARTERY JUST PAST BIFURCATION CORRESPONDS TO YESTERDAY CTA HEAD AND NECK. CT of the head is reported as significantly evolving acute infarct in the left middle cerebral artery distribution. I personally reviewed the CT and I agree there is no involvement in the left frontal parietal region. There is no midline shift. Objective - Vital Signs Vital signs: Vital Signs Temp 98.9 F 03/07/23 12:00 Pulse 57 L 03/07/23 13:40 Resp 18 03/07/23 13:40 BP 145/67 03/07/23 13:40 Pulse Ox 97 03/07/23 13:40 FiO2 21 03/05/23 10:01 Intake & Output 03/06/23 03/07/23 03/07/23 18:59 06:59 18:59 Intake Total 1150 118 550 Output Total 500 3000 450 Balance 650 -2882 100 Weight 74.843 kg Intake: IV 550 Intake, IV Titration 550 Amount Ampicillin-Sulbactam 3 gm 100 In Sodium Chloride 0.9% 100 ml @ 200 mls/hr IVPB Q8HR NICOLE Rx#:[id number] Sodium Chloride 0.9% 1, 400 000 ml @ 50 mls/hr IV . Q20H NICOLE Rx#:[id number] cefTRIAXone 2 gm In 50 Sodium Chloride 0.9% 50 ml @ 100 mls/hr IVPB Q24HR NICOLE Rx#:[id number] Oral 600 118 Output: Urine 500 3000 450 Other: Voiding Method Indwelling Catheter Indwelling Catheter Indwelling Catheter # Bowel Movements 1 - Exam Patient is more alert and awake and interactive. He smiles and has improved right facial weakness. Still no movement with the right upper extremity. He has global aphasia. No comprehension, cannot name or repeat. Patient has right facial weakness, central type. Patient has right visual field neglect. He has head preference to the left. Patient is completely flaccid in the right arm. He has withdrawal movement to painful stimuli in the right leg. Patient's did see him moving his right leg spontaneously as well. Patient has Babinski on the right. - Labs CBC & Chem 7: 03/08/23 10:28 03/08/23 10:28 Labs: Abnormal Lab Results - Last 24 Hours (Table) 03/07/23 Range/Units 09:10 Creatinine 0.65 L (0.66-1.25) mg/dL Assessment and Plan Assessment: This is an 82-year-old gentleman with had a recent stroke in the end of December 2022 and he had symptomatic left ICA. On 02/28/2023 around 3:30 PM he had sudden onset right-sided weakness with speech difficulty. Acute left MCA ischemic stroke due to artery to artery embolic (since had symptomatic left ICA stenosis) Global aphasia, with right upper extremity plegia and right lower paresis due to above Left ICA occlusion on recent CTA and carotid duplex. In past had left ICA stenosis 90% and On 02/10/2023 patient was unstable for intervention of the left ICA (blood pressure is unstable prior to procedure) Dyphagia due to stroke, status post PEG placement. History of left parietaloccipital and temporal stroke at the end of December 2022 and the patient had expressive aphasia and per the that improved History of polio Plan: Continue aspirin 81 mg daily and Brilinta 90mg 1 tab bid since failed Plavix. Continue Lipitor 80 mg daily at bedtime for secondary stroke prophylaxis Repeat CT head 03/04/2023 revealed stable large left middle cerebral artery infarct. Stable appearing watershed region ischemia may be chronic. I personally reviewed CT head, agree with the findings. No midline shift. Patient could not tolerate MRI during this admission but it shows left MCA stroke and it will not record changer. Patient had undergone PEG tube placement today. Vascular surgery team: Recommended symptomatic and supportive treatment. No indication for any vascular surgical intervention for Left ICA stenosis. Continue neuro checks. Cardiac monitoring PT, OT and VOCATIONAL SERVICES SPECIALIST are consulted Defer the rest of the medical management to primary team For DVT prophylaxis: On subq heparin 5000U every 12 hours. Discussed with patient's .
--- NOTE | 2023-03-08 16:20 | P.PN ---
Subjective Progress Note Date: 03/08/23 03/08/2023: Patient was seen for a follow-up. Patient's was also present today. Patient is started on tube feeds. He is tolerating it well. Patient's examination is essentially unchanged. Telemetry monitoring showing sinus rhythm, with sinus bradycardia in 50-70. 03/07/2023: Patient was seen for a follow-up. Patient's was also present today. Patient is slightly more alert and awake and interactive. He smiles. He has less right facial droop. Continues to be aphasic. Namenda and the right upper extremity. He does not volunteer movements of the right leg, but responds fairly well to painful stimuli. He moves the left side very normally. Patient had undergone PEG tube placement today. 03/06/2023: Patient was initially seen by Dr. Wes Pickett. Please refer to his note for details. Patient is an 82-year-old male who has history of a smaller stroke in the left MCA territory on 01/20/2023, has severe left ICA stenosis, was supposed to have left ICA stenting versus CEA in 2 weeks. Patient was discharged to the [facility] on 01/24/2023. Patient returned to the hospital for elective left ICA stenting on 02/10/2023. Apparently preoperatively, patient has difficulty with IV placement. Once it was done, patient was intubated, but his blood pressure went up in 200 range, then dropped down significantly. He has some cardiac issues, therefore the surgery was aborted. He was sent back to [facility]. Patient was finally discharged home on 02/21/2023, but then readmitted this time on 02/28/2023 with a massive CVA left MCA territory. Patient was on aspirin and Plavix prior to the stroke. Patient has developed severe aphasia and complete right hemiplegia, face and arm much more than the leg. CT head revealed evolution of the left MCA CVA. Patient has developed dysphagia from CVA. Patient will undergo PEG placement in the morning. Surgery on board. Patient's was also present. Patient is currently on aspirin and Brilinta. Patient's mentions that he has severe aphasia. He knows her (his ) and their cats. Otherwise he is not communicative, nonverbal. He is flaccid on the right side, mainly the arm. Some of the workup during this hospital visit consisted of: Lipid panel is a triglyceride of 70, cholesterol is 85, LDLs 30 and HDL is 40. CT of the head is reported as no acute intracranial processes. Nonspecific white matter changes, likely secondary due to chronic small vessel ischemic disease. Remote left posterior temporal and occipital lobe infarct. Small right frontal scalp contusion. No evidence of cervical spine fracture. Moderate multilevel degenerative disc disease. CT angiography of the head and neck is reported as occlusion of left internal carotid artery just beyond the bifurcation. Previous minimal flow is not identified. Diminished flow within the left posterior cerebral last culture. This could be due to shunting through the posterior communicating artery to the anterior [place] of [place]. Limited 2-D echo is ejection fraction of 50-55%. Trace mitral and aortic regurgitation. Carotid duplex is reported as mild PLAQUE WITHIN THE RIGHT CAROTID BULB. NO EVIDENCE OF HEMODYNAMICALLY SIGNIFICANT STENOSIS OF THE RIGHT INTERNAL CAROTID ARTERY ORIGIN. OCCLUSION OF THE LEFT INTERNAL CAROTID ARTERY JUST PAST BIFURCATION CORRESPONDS TO YESTERDAY CTA HEAD AND NECK. CT of the head is reported as significantly evolving acute infarct in the left middle cerebral artery distribution. I personally reviewed the CT and I agree there is no involvement in the left frontal parietal region. There is no midline shift. Objective - Vital Signs Vital signs: Vital Signs Temp 98.3 F 03/08/23 08:00 Pulse 83 03/08/23 12:00 Resp 16 03/08/23 08:00 BP 160/73 03/08/23 12:00 Pulse Ox 92 L 03/08/23 12:00 FiO2 21 03/05/23 10:01 Intake & Output 03/07/23 03/08/23 03/08/23 18:59 06:59 18:59 Intake Total 1050 236 Output Total 750 800 Balance 300 -800 236 Weight 74.843 kg Intake: IV 550 Oral 500 236 Output: Urine 750 800 Uretheral (Bal) 300 Other: Voiding Method Indwelling Catheter Indwelling Catheter Indwelling Catheter - Exam Patient is more alert and awake and interactive. He smiles and has improved right facial weakness. Still no movement with the right upper extremity. He has global aphasia. No comprehension, cannot name or repeat. Patient has right facial weakness, central type. Patient has right visual field neglect. He has head preference to the left. Patient is completely flaccid in the right arm. He has withdrawal movement to painful stimuli in the right leg. Patient's did see him moving his right leg spontaneously as well. Patient has Babinski on the right. - Labs CBC & Chem 7: 03/08/23 10:28 03/08/23 10:28 Labs: Abnormal Lab Results - Last 24 Hours (Table) 03/08/23 03/08/23 Range/Units 10:28 10:28 RBC 4.18 L (4.30-5.90) m/uL Sodium 136 L (137-145) mmol/L BUN 8 L (9-20) mg/dL Assessment and Plan Assessment: This is an 82-year-old gentleman with had a recent stroke in the end of December 2022 and he had symptomatic left ICA. On 02/28/2023 around 3:30 PM he had sudden onset right-sided weakness with speech difficulty. Acute left MCA ischemic stroke due to artery to artery embolic (since had symptomatic left ICA stenosis) Global aphasia, with right upper extremity plegia and right lower paresis due to above Left ICA occlusion on recent CTA and carotid duplex. In past had left ICA stenosis 90% and On 02/10/2023 patient was unstable for intervention of the left ICA (blood pressure is unstable prior to procedure) Dyphagia due to stroke, status post PEG placement 03/07/2023. History of left parietaloccipital and temporal stroke at the end of December 2022 and the patient had expressive aphasia and per the that improved History of polio Plan: Continue aspirin 81 mg daily and Brilinta 90mg 1 tab bid since failed Plavix. Continue Lipitor 80 mg daily at bedtime for secondary stroke prophylaxis Repeat CT head 03/04/2023 revealed stable large left middle cerebral artery infarct. Stable appearing watershed region ischemia may be chronic. I personally reviewed CT head, agree with the findings. No midline shift. Patient had undergone PEG tube placement 03/07/2023, tolerating tube feeds well. Vascular surgery team: Recommended symptomatic and supportive treatment. No indication for any vascular surgical intervention for Left ICA stenosis. Continue neuro checks. Cardiac monitoring PT, OT and CEMENT STORAGE WORKER are consulted Defer the rest of the medical management to primary team For DVT prophylaxis: On subq heparin 5000U every 12 hours. Discussed with patient's . Neurologically clear for transfer to rehab facility ([facility]).
[2023-03-08 16:31] LABS: Glucose,Whole Blood 87 mg/dL (70-110)
[2023-03-08] MEDS: SODIUM CHLORIDE 0.9% 1,000 ML IV SCH (17:18)
[2023-03-08] MEDS: TICAGRELOR 90 MG TAB PO SCH (19:50)
[2023-03-08] MEDS: ATORVASTATIN 80 MG TAB PO SCH (19:50)
[2023-03-08 19:59] LABS: Glucose,Whole Blood 96 mg/dL (70-110)
[2023-03-08] MEDS: MORPHINE SULFATE 2 MG/ML SYRINGE IVP PRN (20:01)
[2023-03-09] MEDS: MORPHINE SULFATE 2 MG/ML SYRINGE IVP PRN (04:11)
[2023-03-09 06:25] LABS: Glucose,Whole Blood 123 mg/dL (70-110)
[2023-03-09] MEDS: AMPICILLIN-SULBACTAM 3 GM in SODIUM CHLORIDE 0.9% 100 ML IVPB SCH (09:11)
[2023-03-09] MEDS: FAMOTIDINE 20 MG TAB PO SCH (09:15)
[2023-03-09] MEDS: amLODIPine 10 MG TAB PO SCH (09:15)
[2023-03-09] MEDS: HEPARIN SODIUM,PORCINE/PF 5,000 UNIT/0.5 ML SYRINGE SQ SCH (09:15)
[2023-03-09] MEDS: ASPIRIN 81 MG PO SCH (09:15)
[2023-03-09] MEDS: TICAGRELOR 90 MG TAB PO SCH (09:15)
[2023-03-09] MEDS: lisinopriL 5 MG TAB PO SCH (09:15)
[2023-03-09 09:22] VITALS: PULSE 64
[2023-03-09 09:27] LABS: HCT 38.2 % (39.0-53.0); HGB 12.6 gm/dL (13.0-17.5); MCH 31.7 pg (25.0-35.0); MCHC 32.9 g/dL (31.0-37.0); MCV 96.2 fL (80.0-100.0); Mean Platelet Volume 8.1; Platelet Count 337 k/uL (150-450); RBC 3.97 m/uL (4.30-5.90); RDW 12.4 % (11.5-15.5); WBC 10.3 k/uL (3.8-10.6)
[2023-03-09 09:50] LABS: African American GFR (CKD) >90 (>60 ml/min/1.73 sqM); Anion Gap 10 mmol/L; Blood Urea Nitrogen 10 mg/dL (9-20); Calcium 8.4 mg/dL (8.4-10.2); Carbon Dioxide 28 mmol/L (22-30); Chloride 98 mmol/L (98-107); Glucose 101 mg/dL (74-99); Non-African American GFR(CKD) >90 (>60 ml/min/1.73 sqM); Phosphorus 3.6 mg/dL (2.5-4.5); Potassium 3.6 mmol/L (3.5-5.1); Sodium 136 mmol/L (137-145)
[2023-03-09 11:25] LABS: Glucose,Whole Blood 112 mg/dL (70-110)
--- NOTE | 2023-03-09 11:57 | P.PN ---
Subjective Progress Note Date: 03/09/23 CHIEF COMPLAINT: Malnutrition HISTORY OF PRESENT ILLNESS: Patient is status post EGD with PEG tube placement. Patient tolerating tube feeds. Tube feeds currently running at 30 mL per hour. No abdominal pain. No nausea or vomiting. Afebrile. WBC 10.3 Hgb 12.6 plt 337 Na 136 K 3.6. Plan for possible discharge to [facility] today. PHYSICAL EXAM: VITAL SIGNS: Reviewed. GENERAL: Well-developed in no acute distress. ABDOMEN: Soft. Nondistended. Nontender. PEG tube site clean dry and intact ASSESSMENT: 1. Mild protein calorie malnutrition status post PEG tube placement 2. Dysphagia 3. CVA PLAN: -Continue titrate to feedings per dietitian recommendations -Okay to resume anticoagulation from surgical standpoint -Patient can be discharged from surgical standpoint when medically cleared Physician Associate Chief Nurse note has been reviewed by physician. Signing provider agrees with the documented findings, assessment, and plan of care. I have personally seen and examined the patient, reviewed the LACQUERER /PAs history, exam and MDM and agree with the assessment and plan as written. Based on total visit time, I have performed more than 50% of the visit. As above: The patient doing about the same. Tolerating tube feeds at 30 mL per hour. Continue advancing tube feeds to goal. Objective - Vital Signs Vital signs: Vital Signs Temp 97.5 F L 03/09/23 08:00 Pulse 64 03/09/23 08:00 Resp 18 03/09/23 08:00 BP 150/71 03/09/23 08:00 Pulse Ox 100 03/09/23 08:00 FiO2 21 03/05/23 10:01 Intake & Output 03/08/23 03/09/23 03/09/23 18:59 06:59 18:59 Intake Total 354 304 0 Output Total 1600 600 Balance -1246 -296 0 Weight 74.843 kg Intake: Oral 354 0 Tube Feeding 304 Output: Urine 1600 600 Other: Voiding Method Indwelling Catheter Indwelling Catheter Indwelling Catheter - Labs CBC & Chem 7: 03/09/23 08:06 03/09/23 08:06 Labs: Abnormal Lab Results - Last 24 Hours (Table) 03/09/23 03/09/23 03/09/23 Range/Units 06:24 08:06 08:06 RBC 3.97 L (4.30-5.90) m/uL Hgb 12.6 L (13.0-17.5) gm/dL Hct 38.2 L (39.0-53.0) % Sodium 136 L (137-145) mmol/L Creatinine 0.65 L (0.66-1.25) mg/dL Glucose 101 H (74-99) mg/dL POC Glucose (mg/dL) 123 H (70-110) mg/dL 03/09/23 Range/Units 11:21 RBC (4.30-5.90) m/uL Hgb (13.0-17.5) gm/dL Hct (39.0-53.0) % Sodium (137-145) mmol/L Creatinine (0.66-1.25) mg/dL Glucose (74-99) mg/dL POC Glucose (mg/dL) 112 H (70-110) mg/dL
--- NOTE | 2023-03-09 12:14 | P.DS ---
Providers Date of admission: 02/28/23 20:21 Expected date of discharge: 03/09/23 Attending physician: Baljit Tidwell MD Consults: 02/28/23 20:21 Consult Physician Routine Consulting Provider: Wes Pickett Consult Reason/Comments: cva Do you want consulting provider notified?: Yes 03/06/23 08:55 Consult Physician Routine Consulting Provider: Skip Mejia Consult Reason/Comments: Poor oral intake. Possible PEG Do you want consulting provider notified?: Yes Primary care physician: Kade Moyer MD Hospital Course: Discharge Diagnosis: Acute left MCA CVA due to symptomatic left internal carotid artery stenosis Possible aspiration PNA, possible gram negative. 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 Patient was initially hospitalized here from 01/18 through 01/24 were he was diagnosed with a urinary tract infection and acute to subacute CVA on MRI. He was started on aspirin, Plavix, and Lipitor. He was found to have left internal carotid artery artery stenosis. He was scheduled for a TCAR the procedure had to be aborted due to labile blood pressures. During this admission he was also found to have an acute left-sided MCA CVA which was confirmed on MRI. He had a repeat head CT to assess first reroll edema this did not show significant cerebral edema. He had poor oral intake with some difficulty swallowing. Patient had PEG tube placed 03/07/23. Follow-up: Patient is receiving Jevity 1.5 tube feeds current weight is at 40 mL/h, uncle is 60 mL/h. Increase at 10 mL every 8 hours. Aspiration precuations, HOB >30 degrees. Patient is at high risk to accidently dislodge peg tube, Maintain abdominal binder as able. Repeat BMP, CBC in 305 days Dx: anemia and Trhombocytopenia Diet: Honey thickened Clear liquids, no straws, one-to-one supervision Maintain chronic indwelling Bal Patient seen and examined at bedside. He is nonverbal but appears comfortable. Vital signs reviewed and stable. General: nontoxic, no distress, appears at stated age Cardiovascular: S1S2 reg, no murmur, positive posterior tibial pulse bilateral, Lungs: CTA bilateral, no rhonchi, no rales , no accessory muscle use Abdominal: soft, nontender to palpation, no guarding, no appreciable organomegaly Ext: no gross muscle atrophy, no edema Neuro: Patient does not verbalize, he does look up when you are speaking to him, he has right-sided hemiparalysis Psych: Awake A total of 35 minutes of time were spent preparing this complex discharge summary. Patient was discharged on 03/09/23. This dictation was prepared using [employer] voice recognition software. Though every attempt is made to correct errors during during dictation some may still exist. Patient Condition at Discharge: Stable Plan - Discharge Summary Discharge Rx Participant: No New Discharge Prescriptions: New Aspirin 81 mg PO DAILY tab Ticagrelor [Brilinta] 90 mg PO BID tab amLODIPine [Norvasc] 10 mg PO DAILY tab Continue Atorvastatin [Lipitor] 40 mg PO HS #0 tab Famotidine [Pepcid] 20 mg PO BID #0 tab Clopidogrel [Plavix] 75 mg PO DAILY #0 tab lisinopriL [Zestril] 5 mg PO DAILY tab Acetaminophen Tab [Tylenol] 650 mg PO Q6HR PRN PRN Reason: Fever And/ Or Pain Discontinued Aspirin 325 mg PO DAILY tab polyethylene glycoL 3350 [Miralax] 17 gm PO HS Sulfamethox-Tmp 800-160Mg [Bactrim DS 800-160 mg] 1 tab PO Q12HR Discharge Medication List Atorvastatin [Lipitor] 40 mg PO HS #0 tab 01/24/23 [Rx] Clopidogrel [Plavix] 75 mg PO DAILY #0 tab 01/24/23 [Rx] Famotidine [Pepcid] 20 mg PO BID #0 tab 01/24/23 [Rx] lisinopriL [Zestril] 5 mg PO DAILY tab 01/24/23 [Rx] Acetaminophen Tab [Tylenol] 650 mg PO Q6HR PRN 02/07/23 [History] Aspirin 81 mg PO DAILY tab 03/09/23 [Rx] Ticagrelor [Brilinta] 90 mg PO BID tab 03/09/23 [Rx] amLODIPine [Norvasc] 10 mg PO DAILY tab 03/09/23 [Rx] Follow up Appointment(s)/Referral(s): Kade Moyer MD [Primary Care Provider] - 1 Week Haroldo Chua MD [Medical Doctor] - 1 Week Patient Instructions/Handouts: Ischemic Stroke (GEN) Activity/Diet/Wound Care/Special Instructions: Patient is receiving Jevity 1.5 tube feeds current weight is at 40 mL/h, uncle is 60 mL/h. Increase at 10 mL every 8 hours. Aspiration precuations, HOB >30 degrees. Patient is at high risk to accidently dislodge peg tube, Maintain abdominal binder as able. Repeat BMP, CBC in 305 days Dx: anemia and Trhombocytopenia Diet: Honey thickened Clear liquids, no straws, one-to-one supervision Maintain chronic indwelling Bal Discharge Disposition: TRANSFER TO SNF/ECF
[2023-03-09 12:27] VITALS: BP 140/60; TEMP 97.1
[2023-03-09 15:24] VITALS: RESP 18
== END 2023-03-09 15:31 | DRG 64 ==
LOC: EC 16:06 → 3SCARD 20:21
PROVIDERS: ADMIT Internal Medicine; ATTEND Internal Medicine
PROC: 3E0G76Z Introduction of Nutritional Substance into Upper GI, Via Natural or Artificial Opening (ICD-10-PCS; 2023-03-07)
PROC: 0DH63UZ Insertion of Feeding Device into Stomach, Percutaneous Approach (ICD-10-PCS; principal; 2023-03-07 07:55)
DX: I63.412 Cerebral infarction due to embolism of left middle cerebral artery (principal); G93.41 Metabolic encephalopathy; J69.0 Pneumonitis due to inhalation of food and vomit; E44.1 Mild protein-calorie malnutrition; G81.91 Hemiplegia, unspecified affecting right dominant side; E87.1 Hypo-osmolality and hyponatremia; R47.01 Aphasia; R13.10 Dysphagia, unspecified; E86.0 Dehydration; I10 Essential (primary) hypertension; D64.9 Anemia, unspecified; I65.22 Occlusion and stenosis of left carotid artery; I08.0 Rheumatic disorders of both mitral and aortic valves; Z66 Do not resuscitate; N40.0 Benign prostatic hyperplasia without lower urinary tract symptoms; G14 Postpolio syndrome; R47.1 Dysarthria and anarthria; R29.727 NIHSS score 27; S01.01XA Laceration without foreign body of scalp, initial encounter; M50.30 Other cervical disc degeneration, unspecified cervical region; R29.810 Facial weakness; R29.6 Repeated falls; E87.6 Hypokalemia; R00.1 Bradycardia, unspecified; Z96.0 Presence of urogenital implants; Z68.23 Body mass index [BMI] 23.0-23.9, adult; I69.320 Aphasia following cerebral infarction; Z87.440 Personal history of urinary (tract) infections; Z79.899 Other long term (current) drug therapy; Z79.02 Long term (current) use of antithrombotics/antiplatelets; Z79.82 Long term (current) use of aspirin; Y92.121 Bathroom in nursing home as the place of occurrence of the external cause; Z91.81 History of falling; Z78.1 Physical restraint status
CPT/HCPCS: 36415; 43246; 70450; 70496; 70498; 71045; 72125; 80048; 80053; 80061; 80306; 81001; 82550; 83735; 84100; 84484; 85025; 85027; 85610; 85730; 93005; 93308; 93880; 94760; 96360; 96361; 99291